=== PATIENT | male | born 1955 | race Caucasian/White ===

== ENCOUNTER 2018-03-25 07:00 | Inpatient (IN) ==
[2018-03-25] MEDS ORDERED: 0.9 % Sodium Chloride 1,000 ML IVC ONE (07:19)
[2018-03-25] MEDS ORDERED: Acetaminophen IV 1,000 MG/100 ML INFUS..BTL IVPB ONE (07:21)
[2018-03-25] MEDS ORDERED: Ipratropium/Albuterol Neb 3 ML IH ONE (07:21)
[2018-03-25] MEDS ORDERED: Cefepime HCl 2,000 MG in Water for inj. (sterile) 20 ML 20 ML IVP ONE (07:22)
[2018-03-25 07:52] LABS: Basophils % 0.4 %; Eosinophils # 0.2 K/mcL (0.0-0.6); Eosinophils % 2.2 %; Hematocrit 43.2 % (37.5-50.1); Immature Granulocytes % 0.4 % (0-4); Lymphocytes # 0.7 K/mcL (0.6-4.6); Lymphocytes % 7.9 %; Mean Corpuscular HGB Conc 34.7 g/dL (31.6-35.5); Mean Corpuscular Hemoglobin 32.5 pg (28.0-33.3); Mean Corpuscular Volume 93.7 fL (83.0-100.0); Mean Platelet Volume 9.2 fL (9.4-12.4); Monocytes # 0.8 K/mcL (0.0-1.3); Monocytes % 8.9 %; Neutrophils # 7.4 K/mcL (1.6-8.9); Platelet Count 215 K/mcL (140-400); Red Blood Count 4.61 M/mcL (4.19-5.50); Red Cell Distribution Width 12.6 % (11.5-14.5); Segmented Neutrophils % 80.2 %
[2018-03-25 08:17] LABS: BUN/Creatinine Ratio 12 (6-26); Blood Urea Nitrogen 12 mg/dL (8-23); Calcium 9.3 mg/dL (8.6-10.3); Carbon Dioxide 27 mEq/L (23-29); Chloride 102 mEq/L (98-107); Glucose 95 mg/dL (70-105); Osmolality,Calculated 282 (280-300); Potassium 3.7 mEq/L (3.5-5.1); Sodium 136 mEq/L (136-145); Troponin I < 0.03 ng/mL (< 0.04); eGFR For Non-African Americans > 60 (> 60)
--- NOTE | 2018-03-25 08:54 | Emergency Department Note ---
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 He does have a history of immunosuppression due to biological age and utilization as well as methotrexate for underlying psoriatic arthritis. He has had productive sputum, dyspnea for several days and has felt under the weather. 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 He has been admitted in the past for pneumonia. He has no chest pain was noted be mildly hypoxic at triage. General: No acute distress HEENT: Pupils equal and reactive to light, extraoccular muscle movement is normal, TMS are clear bilaterally. Heart: RRR, No murmor rub or gallop Lungs: Rhonchi bilaterally ABD: SNT, no focal areas or tenderness, no guarding or rebound tenderness. Extremities: No cyanosis, clubbing or edema Neuro: CN 2-12 in tact, no focal deficit. strength 5/5. 12 point review of systems was completed and pertinent positives are discussed in my history of present illness Medical decision making Findings consistent with early pneumonia. Given hypoxia, tachycardia, immunosuppressed state we will proceed with admission. Vancomycin as well as cefepime were initiated. MRSA scan was sent as to de-escalate antibiotic therapy as soon as possible. I did send urinary antigens. Additionally respiratory viral panel was obtained as again to further de-escalate antibiotics should this be positive. The patient be admitted for further management and treatment. IV fluids, expectorant, antibiotics, bronchodilator was administered Pain Scale: 3 - Related Data Allergies Allergy/AdvReac Type Severity Reaction Status Date / Time azithromycin [From Zithromax] Allergy Hives Verified 03/25/18 09:13 levofloxacin [From Levaquin] Allergy Difficulty Verified 03/25/18 09:13 Breathing All systems ED: reviewed and negative except as stated. Past Medical History - Past Medical History Medical history: Reports: arthritis, asthma, COPD, GERD, hypertension Psychiatric history: Reports: no psych history - Social History Smoking Status: Former smoker Smokeless Tobacco Status: No Alcohol use: Reports: occasionally Drug use: Reports: none Physical Exam - General General appearance: alert, in no apparent distress Course Vital Signs Temperature 101.6 F H 03/25/18 07:03 Pulse Rate 103 03/25/18 07:03 Respiratory Rate 18 03/25/18 07:03 Blood Pressure 137/83 03/25/18 07:03 O2 Sat by Pulse Oximetry 89 03/25/18 07:03 Temperature 101.6 F H 03/25/18 07:03 Pulse Rate 103 03/25/18 07:03 Respiratory Rate 23 03/25/18 09:09 Blood Pressure 125/70 03/25/18 09:09 O2 Sat by Pulse Oximetry 93 03/25/18 08:14 Oxygen Delivery Oxygen Delivery Nasal Cannula Medical Decision Making - MDM Narrative Medical decision making narrative: EKG shows sinus rhythm at a rate of 95 bpm, normal axis, normal intervals, nonspecific ST segments - Lab Data Result diagrams: 03/25/18 07:32 03/25/18 07:32 Lab Results 03/25/18 03/25/18 03/25/18 Range/Units 07:32 07:32 07:32 WBC 9.2 (4.3-11.1) K/mcL RBC 4.61 (4.19-5.50) M/mcL Hgb 15.0 (12.9-16.9) g/dL Hct 43.2 (37.5-50.1) % MCV 93.7 (83.0-100.0) fL MCH 32.5 (28.0-33.3) pg MCHC 34.7 (31.6-35.5) g/dL RDW 12.6 (11.5-14.5) % Plt Count 215 (140-400) K/mcL MPV 9.2 L (9.4-12.4) fL Immature Gran % 0.4 (0-4) % Seg Neutrophils % 80.2 % Lymphocytes % 7.9 % Monocytes % 8.9 % Eosinophils % 2.2 % Basophils % 0.4 % Neutrophils # 7.4 (1.6-8.9) K/mcL Lymphocytes # 0.7 (0.6-4.6) K/mcL Monocytes # 0.8 (0.0-1.3) K/mcL Eosinophils # 0.2 (0.0-0.6) K/mcL Basophils # 0.0 (0.0-0.2) K/mcL Sodium 136 (136-145) mEq/L Potassium 3.7 (3.5-5.1) mEq/L Chloride 102 (98-107) mEq/L Carbon Dioxide 27 (23-29) mEq/L BUN 12 (8-23) mg/dL Creatinine 1.00 (0.70-1.30) mg/dL Est GFR ( Amer) > 60 (> 60) Est GFR (Non-Af Amer) > 60 (> 60) BUN/Creatinine Ratio 12 (6-26) Glucose 95 (70-105) mg/dL Calculated Osmolality 282 (280-300) Lactic Acid 0.9 (0.5-2.2) mmol/L Calcium 9.3 (8.6-10.3) mg/dL Troponin I < 0.03 (< 0.04) ng/mL
[2018-03-25 09:40] LABS: Adenovirus Not Detected (Not Detect); Bordetella Pertussis Not Detected (Not Detect); Chlamydophila pneumoniae Not Detected (Not Detect); Coronavirus 229E Not Detected (Not Detect); Coronavirus HKU1 Not Detected (Not Detect); Coronavirus NL63 Not Detected (Not Detect); Coronavirus OC43 Not Detected (Not Detect); Human Metapneumovirus Not Detected (Not Detect); Human Rhinovirus/Enterovirus Not Detected (Not Detect); Influenza A Subtype 2009 H1 Not Detected (Not Detect); Influenza A Untypeable Not Detected (Not Detect); Influenza B Not Detected (Not Detect); Mycoplasma pneumoniae Not Detected (Not Detect); Parainfluenza Virus 1 Not Detected (Not Detect); Parainfluenza Virus 2 Not Detected (Not Detect); Parainfluenza Virus 3 Not Detected (Not Detect); Parainfluenza Virus 4 Not Detected (Not Detect); Respiratory Syncytial Virus Not Detected (Not Detect)
--- NOTE | 2018-03-25 10:03 | Internal Med History&Physical ---
Date of Encounter: 03/25/18 Time of Encounter: 10:03 Internal Medicine - H&P: HPI Chief complaint: cough and shortness of breath History of present illness: Mr. Ocampo is a 63 year old male with past medical history of hypertension, psoriatic arthritis, COPD with asthmatic component who came in with complaint of cough and shortness of breath for past 3-4 days. He had a fever this morning with chills. He has been on enbrel and methotraxate since december. Before that he has been on Jacklyn. 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 He has productive cough with greenish sputum and shortness of breath with minimal exertion for past 3 days. He did have treatment with augmentin about 1 month ago for sore throat. Denies any travel history. He also has history of COPD/asthma with last exacerbation about 1 year ago around this time. He continues to smoke. Did have few episodes of diarrhea for about 5-6 day which resolved yesterday with formed stools. His son recently came back from [place] and also had diarrhea as well as his had few episodes. In ER he was noted to have fever of 101.6, was tachycardic and short of breath. CXR showed bilateral infiltrates. He received 1 dose of vancomycina and cefepime as well as 1 L of NS. Past Med Surg Social Fam HX - Past Medical History Medical history: arthritis, asthma, COPD, GERD, hypertension Psychiatric history: no psych history - Past Surgical History Surgical History: no surgical history Additional surgical history: miniscus right knee, hernia repair - Social History Smoking Status: Current every day smoker Smokeless Tobacco Status: No Alcohol use: occasionally Drug use: none - Family History Mother Family Member Ethnicity: Non- Living Status: Hx Family Cardiac Disorders: Yes (HTN, A-FIB) Hx Family Respiratory Disorders: No Hx Family Cancer: Yes (melanoma) Hx Family GI Disorders: No Hx Family Endocrine Disorder: No Hx Family Neuromuscular Disorders: No Hx Family Neurologic Disorders: Yes (DEMENTIA) Hx Family HEENT Disorders: No Hx Family Autoimmune Disorders: No Internal Medicine - H&P: Meds Acetylcysteine [V-Dwhnpp-z-Cysteine] 600 mg PO BID 03/25/18 [History] Albuterol Sulfate [Ventolin Hfa] 2 puff IH Q4-6H PRN 03/25/18 [History] Dextroamphetamine/Amphetamine [Adderall Xr 20 mg Capsule] 20 mg PO DAILY [History] Etanercept [Enbrel] 50 mg SQ PALMER 03/25/18 [History] Fluticasone/Salmeterol [Advair Hfa 230-21 Mcg Inhaler] 2 puff IH BID 03/25/18 [ History] Folic Acid 1 mg PO DAILY 03/25/18 [History] Methotrexate [Otrexup] 15 mg PO PALMER 03/25/18 [History] Montelukast [Singulair] 10 mg PO DAILY 03/25/18 [History] Olmesartan/Hydrochlorothiazide [Olmesartan-Hctz 40-25 mg Tab] 1 tab PO DAILY [History] Tiotropium [place] [Spiriva Respimat] 1 puff IH DAILY 03/25/18 [History] Trazodone HCl 50 - 100 mg PO HS PRN 03/25/18 [History] raNITIdine HCl [Zantac] 150 mg PO BID 03/25/18 [History] 3 Allergy/AdvReac Type Severity Reaction Status Date / Time azithromycin [From Zithromax] Allergy Hives Verified 03/25/18 09:13 levofloxacin [From Levaquin] Allergy Difficulty Verified 03/25/18 09:13 Breathing All Systems PM: A 10-system review of systems was performed and is negative for pertinent findings except as documented above in the HPI. - Constitutional Vitals: Temp Pulse Resp BP Pulse Ox 101.6 F H 103 23 125/70 93 03/25/18 07:03 03/25/18 07:03 03/25/18 09:09 03/25/18 09:09 03/25/18 08:14 General appearance: Present: mild distress, A&O X 3 Exam: Gen: In no acute distress. AOx3. HEENT: PEARLA, no thyromegaly, trachea midline. No JVD, no cervical lymphadenopathy RS: Air entry equal bilaterally, No adventitious lung sounds CVS: S1,S2 normal, RRR, No MRG, No chest tenderness Abdomen: Soft, non tender, non distended, no organomegaly Ext: No pedal edema, Normal pulses bilaterally Neuro: No focal deficits, Cranial nerves grossly unremarkable, No focal motor or sensory deficits Skin: no rash or ulcers noted. Musculoskeletal: No focal weakness Internal Med - H&P Results - Labs CBC & Chem 7: 03/25/18 07:32 03/25/18 12:59 - Assessment and plan (1) Sepsis Current Visit: Yes Status: Acute Assessment and plan: Sepsis likely secondary to pneumonia - CXR with bilateral infiltrates with tachycardia, fever and tachypnea. Has cough with sputum production - Admit inpatient. - Causative organism unclear. f/u Blood culture, sputum culture and urine culture. f/u legionella and streptococcal antigen. Negative - c/w empiric vancomycin and cefepime for HCAP with immunosuppression. - ID consulted. Qualifiers: Sepsis type: sepsis due to unspecified organism Qualified Code(s): A41.9 - Sepsis, unspecified organism (2) HTN (hypertension) Current Visit: Yes Status: Acute Assessment and plan: - BP stable. - Will continue home hyzaar. Will monitor closely. Will stop if SBP below 100. Qualifiers: Qualified Code(s): I10 - Essential (primary) hypertension (3) History of COPD Current Visit: Yes Status: Acute Assessment and plan: - Continue home spiriva and symbicort - prn albuterol. (4) Pneumonia Current Visit: Yes Status: Acute Qualifiers: Pneumonia type: due to unspecified organism Laterality: unspecified laterality Lung location: unspecified part of lung Qualified Code(s): J18.9 - Pneumonia, unspecified organism (5) Psoriatic arthritis Current Visit: No Status: Chronic Assessment and plan: Will continue home medications. (6) DVT prophylaxis Current Visit: Yes Status: Acute Assessment and plan: Lovenox sc - Time Spent With Patient Total time spent is greater than 50% in coordination of care (as documented) at patient's floor/unit and/or counseling patient:
[2018-03-25] MEDS: 0.9 % Sodium Chloride 1,000 ML IVC SCH ×2 (11:33→23:36)
--- NOTE | 2018-03-25 13:01 | Electrocardiograph Report ---
[facility] Test Date: 2018-03-25 Pat Name: Aj Ocampo Department: EXAM4 Room: 2A39 Gender: M Prep Cook: : 1955 Requested By: Paulino Hammond Order Number: [id number] Reading MD: Jose C Dangelo Measurements Intervals Finger Rate: 95 P: 24 WY: 129 QRS: 42 QRSD: 91 T: 35 QT: 356 QTc: 448 Interpretive Statements Sinus rhythm Electronically Signed On 03-25-2018 12:59:57 EDT by Jose C Dangelo
--- NOTE | 2018-03-25 13:07 | Infectious Disease Consult ---
Date of Encounter: 03/25/18 Time of Encounter: 13:05 Assessment and Plan (1) Sepsis Status: Suspected Assessment and plan: Had 3 SIRS criteria on admission including tachycardia, fever and tachypnea Secondary to pneumonia Qualifiers: Sepsis type: methicillin susceptible Staphylococcus aureus Qualified Code(s ): A41.01 - Sepsis due to Methicillin susceptible Staphylococcus aureus (2) Bilateral pneumonia Status: Acute Assessment and plan: Causative organism not clear Respiratory infectious panel has been negative Check urine legionella and pneumococcal antigen Await blood cultures finalize Agree with Duration of treatment depends on clinical picture Qualifiers: Pneumonia type: due to unspecified organism Lung location: lower lobe of lung Qualified Code(s): J18.1 - Lobar pneumonia, unspecified organism (3) Psoriatic arthritis Status: Chronic (4) Immunocompromised Status: Acute (5) Allergy to multiple antibiotics Status: Acute Assessment and plan: Patient allergic to levofloxacin and azithromycin. With levofloxacin he had an anaphylactic reaction With azithromycin he had the rash Infectious Disease HPI - Data of Consult Patient: new to practice Consult date: 03/25/18 Requesting Physician: Debby Bartlett MD Primary Care Provider: PCP NONE - Consult Narrative Reason for consult: HCAP History of present illness: Mr. Ocampo is a 63 year old male Patient is 63-year-old gentleman who presented to [place] with cough and shortness of breath. We are consulted to evaluate the patient for HCAP in immunosuppressed patient. 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 Patient was previously on Humira but that did not control his psoriasis. While on Enbrel and Humira patient's been having yearly QuantiFERON and they all come back negative. Patient tells me that since prior to admission he started having some cough. Cough initially was dry and then became productive with thick yellow and green sputum. Following that patient was having chills and was having dyspnea on exertion and some pleuritic chest pain. Patient denied any URI symptoms no meningeal signs. Since admission patient has been febrile with MAXIMUM TEMPERATURE of 101.6 Fahrenheit, he has been tachycardic with a heart rate of 103 and had an episode of tachypnea. Presenting labs reveal a WBC of 9.2 with 80% neutrophils no bands. A respiratory infectious panel was obtained and it did not detect any virus. Chemistry was not impressive with the EMS 12 creatinine of 1 lactic acid of 0.9. Blood cultures are obtained and are pending. A chest x-ray revealed bibasilar airspace opacities which may represent developing infiltrate or atelectasis. CC: Debby Bartlett MD Past Med Surg Social Fam HX - Past Medical History Medical history: arthritis, asthma, COPD, GERD, hypertension Psychiatric history: no psych history - Past Surgical History Additional surgical history: miniscus right knee, hernia repair - Social History Smoking Status: Former smoker Smokeless Tobacco Status: No Alcohol use: occasionally Drug use: none - Family History Mother Family Member Ethnicity: Non- Living Status: Hx Family Cardiac Disorders: Yes (HTN, A-FIB) Hx Family Respiratory Disorders: No Hx Family Cancer: Yes (melanoma) Hx Family GI Disorders: No Hx Family Endocrine Disorder: No Hx Family Neuromuscular Disorders: No Hx Family Neurologic Disorders: Yes (DEMENTIA) Hx Family HEENT Disorders: No Hx Family Autoimmune Disorders: No Infectious Disease-CN:Meds Acetylcysteine [D-Bzrqya-b-Cysteine] 600 mg PO BID 03/25/18 [History] Albuterol Sulfate [Ventolin Hfa] 2 puff IH Q4-6H PRN 03/25/18 [History] Dextroamphetamine/Amphetamine [Adderall Xr 20 mg Capsule] 20 mg PO DAILY [History] Etanercept [Enbrel] 50 mg SQ PALMER 03/25/18 [History] Fluticasone/Salmeterol [Advair Hfa 230-21 Mcg Inhaler] 2 puff IH BID 03/25/18 [ History] Folic Acid 1 mg PO DAILY 03/25/18 [History] Methotrexate [Otrexup] 15 mg PO PALMER 03/25/18 [History] Montelukast [Singulair] 10 mg PO DAILY 03/25/18 [History] Olmesartan/Hydrochlorothiazide [Olmesartan-Hctz 40-25 mg Tab] 1 tab PO DAILY [History] Tiotropium [place] [Spiriva Respimat] 1 puff IH DAILY 03/25/18 [History] Trazodone HCl 50 - 100 mg PO HS PRN 03/25/18 [History] raNITIdine HCl [Zantac] 150 mg PO BID 03/25/18 [History] 3 Allergy/AdvReac Type Severity Reaction Status Date / Time azithromycin [From Zithromax] Allergy Hives Verified 03/25/18 09:13 levofloxacin [From Levaquin] Allergy Difficulty Verified 03/25/18 09:13 Breathing Exam - Constitutional Vitals: Temp Pulse Resp BP Pulse Ox 99.4 F 88 18 100/60 94 03/25/18 10:48 03/25/18 10:48 03/25/18 10:48 03/25/18 10:48 03/25/18 10:48 Infectious Disease CN: Results - Labs CBC & Chem 7: 03/26/18 05:41 03/26/18 05:41 Consult Discharge Plan - Plan Referrals: NONE,PCP [Primary Care Provider] -
[2018-03-25 13:36] LABS: Alanine Aminotransferase 25 Units/L (7-52); Albumin 3.9 g/dL (3.5-5.7); Albumin/Globulin Ratio 1.7 (1.1-2.2); Alkaline Phosphatase 60 Units/L (34-104); Aspartate Amino Transferase 24 Units/L (13-39); BUN/Creatinine Ratio 11 (6-26); Bilirubin,Total 0.7 mg/dL (0.3-1.0); Blood Urea Nitrogen 14 mg/dL (8-23); Calcium 9.2 mg/dL (8.6-10.3); Carbon Dioxide 27 mEq/L (23-29); Chloride 104 mEq/L (98-107); Globulin 2.3 g/dL (2.4-3.5); Glucose 122 mg/dL (70-105); Osmolality,Calculated 288 (280-300); Sodium 138 mEq/L (136-145); Total Protein 6.2 g/dL (6.4-8.9); eGFR For Non-African Americans 56 (> 60)
[2018-03-25] MEDS: Cefepime HCl 2,000 MG in Water for inj. (sterile) 20 ML 20 ML IVP SCH ×2 (16:56→23:35)
[2018-03-25] MEDS: Budesonide/Formoterol 160/4.5 1 PUFF INH IH SCH (20:37)
[2018-03-25] MEDS: Famotidine 20 MG TABLET PO SCH (20:41)
[2018-03-25] MEDS: *HR* Acetylcysteine 20% 600 MG/3 ML ORAL SYRINGE PO SCH (20:41)
[2018-03-25] MEDS: Acetaminophen 325 MG TABLET PO PRN (21:41)
[2018-03-26] MEDS: *HR* Enoxaparin 40 MG/0.4 ML SYRINGE SQ SCH (05:32)
[2018-03-26 06:35] LABS: Basophils # 0.1 K/mcL (0.0-0.2); Basophils % 0.5 %; Eosinophils # 0.3 K/mcL (0.0-0.6); Eosinophils % 2.4 %; Hematocrit 36.2 % (37.5-50.1); Immature Granulocytes % 0.7 % (0-4); Lymphocytes # 1.3 K/mcL (0.6-4.6); Lymphocytes % 12.3 %; Mean Corpuscular HGB Conc 35.4 g/dL (31.6-35.5); Mean Corpuscular Hemoglobin 32.7 pg (28.0-33.3); Mean Corpuscular Volume 92.3 fL (83.0-100.0); Mean Platelet Volume 9.3 fL (9.4-12.4); Monocytes # 1.2 K/mcL (0.0-1.3); Monocytes % 11.5 %; Neutrophils # 7.8 K/mcL (1.6-8.9); Platelet Count 175 K/mcL (140-400); Red Blood Count 3.92 M/mcL (4.19-5.50); Red Cell Distribution Width 12.9 % (11.5-14.5); Segmented Neutrophils % 72.6 %
[2018-03-26 06:41] LABS: Alanine Aminotransferase 19 Units/L (7-52); Albumin 3.5 g/dL (3.5-5.7); Albumin/Globulin Ratio 1.7 (1.1-2.2); Alkaline Phosphatase 53 Units/L (34-104); Aspartate Amino Transferase 16 Units/L (13-39); BUN/Creatinine Ratio 13 (6-26); Bilirubin,Total 0.8 mg/dL (0.3-1.0); Blood Urea Nitrogen 13 mg/dL (8-23); Calcium 8.6 mg/dL (8.6-10.3); Carbon Dioxide 24 mEq/L (23-29); Chloride 108 mEq/L (98-107); Globulin 2.1 g/dL (2.4-3.5); Glucose 100 mg/dL (70-105); Osmolality,Calculated 286 (280-300); Potassium 3.6 mEq/L (3.5-5.1); Sodium 138 mEq/L (136-145); Total Protein 5.6 g/dL (6.4-8.9); eGFR For Non-African Americans > 60 (> 60)
[2018-03-26 06:42] LABS: Hemoglobin 12.8 g/dL (12.9-16.9)
[2018-03-26] MEDS: Budesonide/Formoterol 160/4.5 1 PUFF INH IH SCH ×2 (07:35→19:37)
[2018-03-26] MEDS: Famotidine 20 MG TABLET PO SCH ×2 (08:04→20:39)
[2018-03-26] MEDS: *HR* Acetylcysteine 20% 600 MG/3 ML ORAL SYRINGE PO SCH ×2 (08:04→20:39)
[2018-03-26] MEDS: Cefepime HCl 2,000 MG in Water for inj. (sterile) 20 ML 20 ML IVP SCH ×2 (08:04→16:29)
[2018-03-26] MEDS: Folic Acid 1 MG TABLET PO SCH (08:05)
[2018-03-26] MEDS: DEXTROAMPHETAMINE PO SCH (08:05)
[2018-03-26] MEDS: AMPHETAMINE PO SCH (08:05)
[2018-03-26] MEDS: Losartan/HCTZ 50-12.5 TABLET PO SCH (08:05)
[2018-03-26] MEDS ORDERED: Budesonide/Formoterol 160/4.5 1 PUFF INH IH SCH (09:00)
[2018-03-26] MEDS ORDERED: NON-FORMULARY MEDICATION 1 EACH EACH (Tiotropium Bromide [Spiriva Respimat] 1 PUFF) IH SCH (09:00)
[2018-03-26] MEDS ORDERED: Aminoglycoside Consult 1 EACH MC ONE (09:46)
[2018-03-26] MEDS: Tiotropium 18 MCG inhalation IH SCH ×2 (11:02→12:41)
[2018-03-26] MEDS: Doxycycline 100 MG CAPSULE PO SCH ×2 (12:23→20:39)
--- NOTE | 2018-03-26 12:30 | Internal Med Progress Note ---
Hospitalist Progress Note - Encounter Date of Encounter: 03/26/18 Time of Encounter: 12:27 - Subjective Interval History: Patient is awake and alert. He feels much better today. No new episodes of fever. Does have cough with sputum. No chest pain or palpitations. - Exam Vitals: Temp Pulse Resp BP Pulse Ox 98.9 F 72 20 129/78 95 03/26/18 11:12 03/26/18 11:12 03/26/18 11:12 03/26/18 11:12 03/26/18 11:12 Exam: General: Patient is alert, oriented x 3 no acute distress, Respiratory: Good respiratory effort. Normal breath sounds. No wheezing or crackles. Cardiovascular: Regular rate and rhythm. s1 and s2 normal No clicks, rubs, gallops, or murmurs. No pedal edema Abdomen: Abdomen is soft, nontender. Bowel sounds are present Musculoskeletal: Spontaneously moving all extremities Skin: warm, dry, intact. Neuro: Alert oriented x 3 normal cranial nerves, no focal deficits - Assessment and Plan (1) Pneumonia Current Visit: Yes Status: Suspected Assessment and Plan: Clinically, patient feels much better. Discussed with infectious disease. MRSA screen was negative. However sputum culture growing gram-positive cocci and rods. For now continue Rocephin. Earlier today, stopped vancomycin and added doxycycline instead. We will follow infectious disease recommendations on stable evaluate the patient later today. Moderate risk for complications. (2) Psoriatic arthritis Current Visit: Yes Status: Chronic Assessment and Plan: Stable. Hold next dose of methotrexate. (3) Sepsis Current Visit: Yes Status: Suspected Assessment and Plan: From pneumonia. On IV antibiotics. Clinically patient is feeling better. (4) HTN (hypertension) Current Visit: Yes Status: Chronic Assessment and Plan: blood pressure is well controlled. Continue Hyzaar (5) History of COPD Current Visit: Yes Status: Acute Assessment and Plan: On bronchodilators and Symbicort. (6) DVT prophylaxis Current Visit: Yes Status: Acute Assessment and Plan: Lovenox. - Time Spent with Patient Total time spent is greater than 50% in coordination of care (as documented) at patient's floor/unit and/or counseling patient: Internal Medicine: Result - Labs CBC & Chem 7: 03/26/18 05:41 03/26/18 05:41 Labs: Short CBC 03/26/18 Range/Units 05:41 WBC 10.7 (4.3-11.1) K/mcL Hgb 12.8 L D (12.9-16.9) g/dL Hct 36.2 L (37.5-50.1) % Plt Count 175 (140-400) K/mcL Neutrophils # 7.8 (1.6-8.9) K/mcL BMP 03/26/18 05:41 Sodium 138 Potassium 3.6 Chloride 108 H Carbon Dioxide 24 BUN 13 Creatinine 0.98 Glucose 100 Calcium 8.6 Liver Function 03/26/18 Range/Units 05:41 Total Bilirubin 0.8 (0.3-1.0) mg/dL AST 16 (13-39) Units/L ALT 19 (7-52) Units/L Alkaline Phosphatase 53 (34-104) Units/L Albumin 3.5 (3.5-5.7) g/dL Consult Discharge Plan - Plan Referrals: NONE,PCP [Primary Care Provider] - (1) Pneumonia Qualifiers: Pneumonia type: due to methicillin-sensitive Staphylococcus aureus (MSSA) Laterality: bilateral Lung location: lower lobe of lung Qualified Code(s): J15.211 - Pneumonia due to Methicillin susceptible Staphylococcus aureus (3) Sepsis Qualifiers: Sepsis type: methicillin susceptible Staphylococcus aureus Qualified Code(s) : A41.01 - Sepsis due to Methicillin susceptible Staphylococcus aureus (4) HTN (hypertension) Qualifiers: Hypertension type: essential hypertension Qualified Code(s): I10 - Essential (primary) hypertension
[2018-03-26] MEDS: Albuterol 2.5 MG/3 ML NEBULIZER IH PRN ×2 (12:41→16:35)
--- NOTE | 2018-03-26 13:25 | Infectious Disease Progress No ---
Date of Encounter: 03/26/18 Time of Encounter: 09:10 - Assessment and Plan (1) Sepsis Current Visit: Yes Status: Suspected The patient had 3 sepsis criteria on admission including tachycardia, fever, tachypnea. Likely secondary to bilateral pneumonia. Improved. White blood cell count has normalized. He was mildly febrile overnight with a MAXIMUM TEMPERATURE of 100.6. Tachycardia has resolved. Blood cultures obtained 03/25/18 are pending 2 sets. Qualifiers: Sepsis type: methicillin susceptible Staphylococcus aureus Qualified Code(s ): A41.01 - Sepsis due to Methicillin susceptible Staphylococcus aureus (2) Bilateral pneumonia Current Visit: No Status: Acute Location: Bilateral. Causative organism: Unclear. Chest x-ray showed bibasilar airspace opacities which may represent developing infiltrates or atelectasis. Respiratory infectious panel was negative. Strep pneumococcal legionella urinary antigen tests are negative. Sputum culture is growing GNR. MRSA nasal screen was negative. Await blood cultures to finalize. Continue cefepime 2 g IV every 8 hours. Discontinue Vancomycin. Duration of treatment depends on the clinical picture. Monitor renal function and dose adjust antibiotics. Qualifiers: Pneumonia type: due to unspecified organism Lung location: lower lobe of lung Qualified Code(s): J18.1 - Lobar pneumonia, unspecified organism (3) Allergy to multiple antibiotics Current Visit: Yes Status: Acute The patient reports allergies to azithromycin and Levaquin. (4) History of COPD Current Visit: Yes Status: Chronic (5) HTN (hypertension) Current Visit: Yes Status: Chronic Qualifiers: Hypertension type: essential hypertension Qualified Code(s): I10 - Essential (primary) hypertension (6) Immunocompromised Current Visit: No Status: Acute Secondary to Enbrel taken for psoriatic arthritis. (7) Psoriatic arthritis Current Visit: Yes Status: Chronic - Subjective Interval history: Patient seen and examined. No acute events noted overnight. Patient states overall he feels better. Reports a persistent cough that is nonproductive. Denies fevers or chills or rigors. Denies chest pain. Denies nausea, vomiting , diarrhea, or constipation. Denies abdominal pain, urinary complaints, appetite changes. Denies any oral thrush or new skin lesions. Infect Dis PN-Objective Data - Labs CBC & Chem 7: 03/26/18 05:41 03/26/18 05:41 Labs: Laboratory Results - last 24 hr 03/26/18 03/26/18 05:41 05:41 WBC 10.7 RBC 3.92 L Hgb 12.8 L D Hct 36.2 L MCV 92.3 MCH 32.7 MCHC 35.4 RDW 12.9 Plt Count 175 MPV 9.3 L Immature Gran % 0.7 Seg Neutrophils % 72.6 Lymphocytes % 12.3 Monocytes % 11.5 Eosinophils % 2.4 Basophils % 0.5 Neutrophils # 7.8 Lymphocytes # 1.3 Monocytes # 1.2 Eosinophils # 0.3 Basophils # 0.1 Sodium 138 Potassium 3.6 Chloride 108 H Carbon Dioxide 24 BUN 13 Creatinine 0.98 Est GFR ( Amer) > 60 Est GFR (Non-Af Amer) > 60 BUN/Creatinine Ratio 13 Glucose 100 Calculated Osmolality 286 Calcium 8.6 Total Bilirubin 0.8 AST 16 ALT 19 Alkaline Phosphatase 53 Serum Total Protein 5.6 L Albumin 3.5 Globulin 2.1 L Albumin/Globulin Ratio 1.7 Exam - Constitutional Vitals: Temp Pulse Resp BP Pulse Ox 98.9 F 72 18 129/78 91 03/26/18 11:12 03/26/18 11:12 03/26/18 12:44 03/26/18 11:12 03/26/18 12:44 General appearance: average body habitus, cooperative, no acute distress - Head Head exam: Present: atraumatic, normal inspection, normocephalic - Eye Eye exam: Present: EOMI, normal appearance, PERRL Pupils: Present: normal accommodation - ENT ENT exam: Present: mucous membranes moist - Neck Neck exam: Present: normal inspection - Respiratory Respiratory exam: Present: CTAB. Absent: rales, respiratory distress, rhonchi, wheezes - Cardiovascular Cardiovascular exam: Present: RRR, +S1, +S2 - GI/Abdominal GI/Abdominal exam: Present: normal bowel sounds, soft. Absent: distended, tenderness - Extremities Exam Extremities exam: Present: normal inspection. Absent: joint swelling, pedal edema, tenderness - Neurological Exam Neurological exam: Present: alert, oriented X3, no focal deficits - Psychiatric Psychiatric exam: Present: normal affect, normal mood - Skin Skin exam: Present: dry, intact, normal color, warm Consult Discharge Plan - Plan Referrals: NONE,PCP [Primary Care Provider] - - Attending Attestation I examined this patient and my medical decision-making was reviewed with the Resident Physician. I agree with the documented findings, disposition and treatment plan as described except to the extent set forth below.
[2018-03-26] MEDS: Acetaminophen 325 MG TABLET PO PRN (16:29)
[2018-03-27] MEDS: Cefepime HCl 2,000 MG in Water for inj. (sterile) 20 ML 20 ML IVP SCH ×2 (00:49→09:52)
[2018-03-27] MEDS: *HR* Enoxaparin 40 MG/0.4 ML SYRINGE SQ SCH (05:43)
[2018-03-27] MEDS: Famotidine 20 MG TABLET PO SCH (09:51)
[2018-03-27] MEDS: Losartan/HCTZ 50-12.5 TABLET PO SCH (09:51)
[2018-03-27] MEDS: Doxycycline 100 MG CAPSULE PO SCH (09:51)
[2018-03-27] MEDS: Folic Acid 1 MG TABLET PO SCH (09:51)
[2018-03-27] MEDS: *HR* Acetylcysteine 20% 600 MG/3 ML ORAL SYRINGE PO SCH (09:52)
[2018-03-27] MEDS: AMPHETAMINE PO SCH (09:52)
[2018-03-27] MEDS: DEXTROAMPHETAMINE PO SCH (09:52)
[2018-03-27] MEDS: Tiotropium 18 MCG inhalation IH SCH (11:19)
[2018-03-27] MEDS: Budesonide/Formoterol 160/4.5 1 PUFF INH IH SCH (11:20)
[2018-03-27] MEDS: Albuterol 2.5 MG/3 ML NEBULIZER IH PRN (11:21)
--- NOTE | 2018-03-27 11:43 | Discharge Summary ---
- NOTES TO OUTPATIENT PROVIDER Notes to Outpatient Provider: Patient with history of psoriatic arthritis on treatment with methotrexate and Enbrel who was hospitalized here with pneumonia. He was suspected of having healthcare associated pneumonia due to his chronic immunosuppression. He was treated with broad-spectrum antibiotics. MRSA screen was negative. As such vancomycin was stopped. Patient's sputum culture is growing Pseudomonas which is sensitive to cephalosporins. However patient is allergic to cephalosporins. As such he needs intravenous antibiotics. Patient will be discharged today on intravenous cefepime to complete a 14 day course. Date of Encounter: 03/27/18 Time of Encounter: 11:41 - Discharge Diagnosis (1) Pneumonia Priority: Primary Status: Acute Qualifiers: Pneumonia type: due to Pseudomonas Laterality: bilateral Lung location: lower lobe of lung Qualified Code(s): J15.1 - Pneumonia due to Pseudomonas (2) Psoriatic arthritis Priority: Secondary Status: Chronic (3) Sepsis Priority: Secondary Status: Acute Qualifiers: Sepsis type: Pseudomonas Qualified Code(s): A41.52 - Sepsis due to Pseudomonas (4) HTN (hypertension) Priority: Secondary Status: Chronic Qualifiers: Hypertension type: essential hypertension Qualified Code(s): I10 - Essential (primary) hypertension (5) History of COPD Priority: Secondary Status: Chronic (6) DVT prophylaxis Priority: Secondary Status: Acute Hospital course: Mr. Ocampo is a 63 year old male Patient with history of psoriatic arthritis on treatment with methotrexate and Enbrel who was hospitalized here with pneumonia. He was suspected of having healthcare associated pneumonia due to his chronic immunosuppression. He was treated with broad-spectrum antibiotics. MRSA screen was negative. As such vancomycin was stopped. Patient's sputum culture is growing Pseudomonas which is sensitive to cephalosporins. However patient is allergic to cephalosporins. As such he needs intravenous antibiotics. Patient will be discharged today on intravenous cefepime to complete a 14 day course. Discharge discussed with: patient, nurse, desktop support consultant - Time Spent with Patient Total time spent providing and/or coordinating discharge services: Greater than 30 minutes (40 min) - Discharge Medications Prescriptions: Cefepime HCl/Dextrose, Iso-Osm [Cefepime 2 gm Injection] 2 gm IV Q8H #35 froz.piggy Lactobacillus Acidophilus [Acidophilus Probiotic] 1 mg PO BID #30 tablet Home Medications: Acetylcysteine [P-Yxjlmc-v-Cysteine] 600 mg PO BID 03/25/18 [History] Albuterol Sulfate [Ventolin Hfa] 2 puff IH Q4-6H PRN 03/25/18 [History] Dextroamphetamine/Amphetamine [Adderall Xr 20 mg Capsule] 20 mg PO DAILY [History] Etanercept [Enbrel] 50 mg SQ PALMER 03/25/18 [History] Fluticasone/Salmeterol [Advair Hfa 230-21 Mcg Inhaler] 2 puff IH BID 03/25/18 [ History] Folic Acid 1 mg PO DAILY 03/25/18 [History] Methotrexate [Otrexup] 15 mg PO PALMER 03/25/18 [History] Montelukast [Singulair] 10 mg PO DAILY 03/25/18 [History] Olmesartan/Hydrochlorothiazide [Olmesartan-Hctz 40-25 mg Tab] 1 tab PO DAILY [History] Tiotropium [place] [Spiriva Respimat] 1 puff IH DAILY 03/25/18 [History] Trazodone HCl 50 - 100 mg PO HS PRN 03/25/18 [History] raNITIdine HCl [Zantac] 150 mg PO BID 03/25/18 [History] Cefepime HCl/Dextrose, Iso-Osm [Cefepime 2 gm Injection] 2 gm IV Q8H #35 froz.piggy 03/27/18 [Rx] Lactobacillus Acidophilus [Acidophilus Probiotic] 1 mg PO BID #30 tablet [Rx] Allergies/Adverse Reactions: 3 Allergy/AdvReac Type Severity Reaction Status Date / Time azithromycin [From Zithromax] Allergy Hives Verified 03/25/18 09:13 levofloxacin [From Levaquin] Allergy Difficulty Verified 03/25/18 09:13 Breathing Date of admission: 03/25/18 18:14 Primary care physician: PCP NONE Consults: 03/27/18 11:02 Consult to Invasive Line Access Team [CONS] Routine Reason for Consult: home atb Line Type: EPIV 03/27/18 11:33 Consult to Invasive Line Access Team [CONS] Routine Reason for Consult: IV ATB at home Line Type: EPIV - Constitutional Vitals: Temp Pulse Resp BP Pulse Ox 98.6 F 74 17 114/70 97 03/27/18 07:49 03/27/18 07:49 03/27/18 07:49 03/27/18 07:49 03/27/18 07:49 General appearance: Present: mild distress, A&O X 3, answers questions appropriately Exam: . - Respiratory Respiratory exam: Present: CTAB. Absent: accessory muscle use, rales, rhonchi, wheezes - Cardiovascular Cardiovascular exam: Present: RRR, +S1, +S2. Absent: diastolic murmur, gallop, rubs, systolic murmur - GI/Abdominal GI/Abdominal exam: Present: normal bowel sounds, soft, no peritoneal signs. Absent: distended, tenderness - Patient Status Disposition: Home Health Service Condition: Good Functional capacity at discharge: independent ambulation Overall status at discharge: patient is progressing back to baseline - Discharge Instructions Instructions: Chronic Obstructive Pulmonary Disease (DC), Pneumonia (DC) Follow Up With: NONE,PCP [Primary Care Provider] - (in 1 -2 weeks) Danika Ellington, STEAM CRANE OPERATOR [Advanced Practice Nurse] - (in 1-2 weeks for follow up ) Forms: ED Satisfaction Letter - Diet and Activity Activity: increase activity as tolerated Diet: low fat, low cholesterol, low salt diet
--- NOTE | 2018-03-27 11:51 | Physician Discharge Referral ---
Home Health/Hosp Referral Info Transfer to: Home Health Provider in Charge Post Discharge: PCP - Diagnosis (1) Pneumonia Priority: Primary Status: Acute (2) Psoriatic arthritis Priority: Secondary Status: Chronic (3) Sepsis Priority: Secondary Status: Acute (4) HTN (hypertension) Priority: Secondary Status: Chronic (5) History of COPD Priority: Secondary Status: Chronic (6) DVT prophylaxis Priority: Secondary Status: Acute - Respiratory Orders Smoking Cessation: Smoking cessation has been advised. For more information, call the [place] Tobacco Quit Line at 5-954-AYWR-NOW. - Diet/Nutrition Diet/Nutrition Orders: Cardiac - Activity Activity Orders: Up ad evelyn - Services Needed Following services are medically necessary services: Home Infusion Home Care Orders: Please check CBC, basic panel every week while patient is receiving IV cefepime. - Transfer Medications Prescriptions: Cefepime HCl/Dextrose, Iso-Osm [Cefepime 2 gm Injection] 2 gm IV Q8H #35 froz.piggy Lactobacillus Acidophilus [Acidophilus Probiotic] 1 mg PO BID #30 tablet Home Medications: Acetylcysteine [X-Trrnvq-p-Cysteine] 600 mg PO BID 03/25/18 [History] Albuterol Sulfate [Ventolin Hfa] 2 puff IH Q4-6H PRN 03/25/18 [History] Dextroamphetamine/Amphetamine [Adderall Xr 20 mg Capsule] 20 mg PO DAILY [History] Etanercept [Enbrel] 50 mg SQ PALMER 03/25/18 [History] Fluticasone/Salmeterol [Advair Hfa 230-21 Mcg Inhaler] 2 puff IH BID 03/25/18 [ History] Folic Acid 1 mg PO DAILY 03/25/18 [History] Methotrexate [Otrexup] 15 mg PO PALMER 03/25/18 [History] Montelukast [Singulair] 10 mg PO DAILY 03/25/18 [History] Olmesartan/Hydrochlorothiazide [Olmesartan-Hctz 40-25 mg Tab] 1 tab PO DAILY [History] Tiotropium [place] [Spiriva Respimat] 1 puff IH DAILY 03/25/18 [History] Trazodone HCl 50 - 100 mg PO HS PRN 03/25/18 [History] raNITIdine HCl [Zantac] 150 mg PO BID 03/25/18 [History] Cefepime HCl/Dextrose, Iso-Osm [Cefepime 2 gm Injection] 2 gm IV Q8H #35 froz.piggy 03/27/18 [Rx] Lactobacillus Acidophilus [Acidophilus Probiotic] 1 mg PO BID #30 tablet [Rx] Allergies/Adverse Reactions: 3 Allergy/AdvReac Type Severity Reaction Status Date / Time azithromycin [From Zithromax] Allergy Hives Verified 03/25/18 09:13 levofloxacin [From Levaquin] Allergy Difficulty Verified 03/25/18 09:13 Breathing Certification: Further, I certify that my clinical findings support that this patient is homebound (i.e. absences from home require considerable and taxing effort and are for medical reasons or mosque services or infrequently or short duration when for other reasons) because: Homebound Reason: Patient requires assistance of a person or device to safely leave home (Patient needs home IV antibiotics to treat Pseudomonas pneumonia infection.) Attestation: My signature below is to certify that this patient is under my care and that I, or nurse practitioner, or a physician's certified ophthalmic assistant working with me, has a face-to -face encounter with this patient.
[2018-03-27 12:07] VITALS: BP 134/73
[2018-03-27] MEDS ORDERED: Isovue-370 500 ML INFUS..BTL IV ONE (12:23)
--- NOTE | 2018-03-27 12:52 | Infectious Disease Progress No ---
Date of Encounter: 03/27/18 Time of Encounter: 10:55 - Assessment and Plan (1) Sepsis Status: Acute The patient had 3 sepsis criteria on admission including tachycardia, fever, tachypnea. Likely secondary to bilateral pneumonia. Improved. White blood cell count has normalized. Afebrile. Tachycardia has resolved. Blood cultures obtained 03/25/18 are NGTD 2 sets. Qualifiers: Sepsis type: Pseudomonas Qualified Code(s): A41.52 - Sepsis due to Pseudomonas (2) Bilateral pneumonia Status: Acute Location: Bilateral. Causative organism: Pseudomonas aeruginosa. Chest x-ray showed bibasilar airspace opacities which may represent developing infiltrates or atelectasis. Respiratory infectious panel was negative. Strep pneumococcal legionella urinary antigen tests are negative. Sputum culture is growing GNR. MRSA nasal screen was negative. Await blood cultures to finalize. Get CT chest to evaluate hemoptysis. Continue cefepime 2 g IV, but can switch to Q12H. (day 3) Duration of treatment depends on the clinical picture, but recommend a total of 14 days of treatment. Treat through 04/07/18. Monitor renal function and dose adjust antibiotics. Consult VAT for EPIV placement. Will need weekly CBC, BUN/Cr. Will need weekly Powerglide care per protocol. financial services counselor to assist with discharge planning. Qualifiers: Pneumonia type: due to unspecified organism Lung location: lower lobe of lung Qualified Code(s): J18.1 - Lobar pneumonia, unspecified organism (3) Hemoptysis Status: Acute Likely secondary to PNA, but concern for additional etiologies. Get CT chest with IV contrast to evaluate. May need to consult pulmonology if hemoptysis persists or based on CT chest findings. (4) Allergy to multiple antibiotics Status: Acute The patient reports allergies to azithromycin and Levaquin, so we will have to use IV antibiotics to complete his course of treatment. (5) History of COPD Status: Chronic (6) HTN (hypertension) Status: Chronic Qualifiers: Hypertension type: essential hypertension Qualified Code(s): I10 - Essential (primary) hypertension (7) Immunocompromised Status: Acute Secondary to Enbrel taken for psoriatic arthritis. (8) Psoriatic arthritis Status: Chronic - Subjective Interval history: Patient seen and examined. No acute events noted overnight. Patient states overall he feels better. Reports a persistent cough that is productive of brown sputum. He also reports one episode of hemoptysis this morning. Denies fevers or chills or rigors. Denies chest pain. Denies nausea, vomiting, diarrhea, or constipation. Denies abdominal pain, urinary complaints, appetite changes. Denies any oral thrush or new skin lesions. Infect Dis PN-Objective Data - Labs CBC & Chem 7: 03/26/18 05:41 03/26/18 05:41 Exam - Constitutional Vitals: Temp Pulse Resp BP Pulse Ox 98.0 F 82 18 134/73 92 03/27/18 12:06 03/27/18 12:06 03/27/18 12:06 03/27/18 12:06 03/27/18 12:06 General appearance: average body habitus, cooperative, no acute distress - Head Head exam: Present: atraumatic, normal inspection, normocephalic - Eye Eye exam: Present: EOMI, normal appearance, PERRL Pupils: Present: normal accommodation - ENT ENT exam: Present: mucous membranes moist - Neck Neck exam: Present: normal inspection - Respiratory Respiratory exam: Present: wheezes (faint wheezes noted throughout) - Cardiovascular Cardiovascular exam: Present: RRR, +S1, +S2 - GI/Abdominal GI/Abdominal exam: Present: normal bowel sounds, soft. Absent: distended, tenderness - Extremities Exam Extremities exam: Present: normal inspection. Absent: joint swelling, pedal edema, tenderness - Neurological Exam Neurological exam: Present: alert, oriented X3, no focal deficits - Psychiatric Psychiatric exam: Present: normal affect, normal mood - Skin Skin exam: Present: dry, intact, normal color, warm Consult Discharge Plan - Plan Instructions: Chronic Obstructive Pulmonary Disease (DC), Pneumonia (DC) Referrals: Danika Ellington, SILK SCREEN PAINTER [Advanced Practice Nurse] - (in 1-2 weeks for follow up ) NONE,PCP [Primary Care Provider] - (in 1 -2 weeks) Prescriptions: Cefepime HCl/Dextrose, Iso-Osm [Cefepime 2 gm Injection] 2 gm IV Q8H #35 [email or web address] Lactobacillus Acidophilus [Acidophilus Probiotic] 1 mg PO BID #30 tablet - Attending Attestation I examined this patient and my medical decision-making was reviewed with the Resident Physician. I agree with the documented findings, disposition and treatment plan as described except to the extent set forth below.
[2018-03-30] MEDS ORDERED: Etanercept [Enbrel] 50 MG SQ SCH (12:45)
[2018-03-30] MEDS ORDERED: *HR* Methotrexate 2.5 MG TABLET PO SCH (12:45)
== END 2018-03-27 13:49 | disposition home health service (06) | DRG 871 ==
LOC: EMEROOARM 07:00 → 2ANU 07:00 → SUATTDRO 18:14
PROVIDERS: ADMIT Family Medicine; ATTEND Internal Medicine

== ENCOUNTER 2018-04-18 17:09 | Inpatient (IN) ==
[2018-04-18] MEDS ORDERED: cefTRIAXone 2,000 MG in Water for inj. (sterile) 20 ML 20 ML IVP ONE (17:31)
[2018-04-18] MEDS: 0.9 % Sodium Chloride 1,000 ML IVC SCH ×2 (17:56→18:42)
--- NOTE | 2018-04-18 17:58 | Emergency Department Note ---
Disposition Clinical Impression: Immunocompromised Pneumonia Qualifiers: Pneumonia type: due to unspecified organism Laterality: unspecified laterality Lung location: unspecified part of lung Qualified Code(s): J18.9 - Pneumonia, unspecified organism Disposition: Admitted As Inpatient Condition: Fair Referrals: NONE,PCP [Non-Partnered Physician] - Forms: ED Satisfaction Letter Time of Disposition: 19:31 General Adult HPI - General Chief complaint: ED Fever Stated complaint: fever, headache Time Seen by Provider: 04/18/18 17:26 Source: patient, family Mode of arrival: ambulatory Limitations: no limitations Nursing Notes Reviewed: Yes Vital Signs Reviewed: Yes - History of Present Illness HPI Narrative: Patient is a 63 year old male that presents to the ED with fever, and headache. Per patient's report, He was recently treated for pseudomonas PNA 3 weeks ago. Patient is on immunomodulators for his psoriatic arthritis. Patient says starting two days ago he started to develop a productive cough with cream colored sputum and worsening dyspnea. His sypmtoms worsened yesterday and he was found to have a fever of 101.2. This morning he woke up with a gradually worsening left-sided frontal-temporal headache. His headache is sharp in character and he rates it a 4/10 at present. Today at work his oxygen saturation dropped down to the 85% and decided it was time to come to the ED to be evaluated. Patient has also noted neck pain exacerbated by movement. Patient also admits to chills, generalized weakness, fatigue, central chest pain with coughing, diffuse abdominal pain with coughing. I have re-performed and reviewed the history documented by the medical student, and I confirm its accuracy except as noted below Agree with her thing that has been done above. Patient presents here with similar symptoms last time he had pneumonia. He recently was treated for pneumonia due to pseudomonas 3 weeks ago. Patient is on immunomodulators for psoriatic arthritis. He started having a productive clot coughing cream- colored sputum the last couple days. Symptoms worsen yesterday did have fever of 101.2. Started having a headache since early worried and caused him to come in. Patient states that he has had fevers that have been controlled with Motrin. Patient otherwise has no complaints including no headaches, blurry vision, neck pain, chest pain, shortness of breath, chills, nausea, vomiting, abdominal pain, chest pain, pain in the arms or legs, change in bowel movements , pain with urination, generalized weakness. Pain Scale: 4 - Related Data Home Medications Medication Instructions Recorded Confirmed Acetylcysteine 600 mg PO BID 03/25/18 03/25/18 [A-Nmshli-p-Cysteine] Albuterol Sulfate [Ventolin Hfa] 2 puff IH Q4-6H PRN 03/25/18 03/25/18 Etanercept [Enbrel] 50 mg SQ PALMER 03/25/18 03/25/18 Folic Acid 1 mg PO DAILY 03/25/18 03/25/18 Methotrexate [Otrexup] 15 mg PO PALMER 03/25/18 03/25/18 Montelukast [Singulair] 10 mg PO DAILY 03/25/18 03/25/18 Olmesartan/Hydrochlorothiazide 1 tab PO DAILY 03/25/18 03/25/18 [Olmesartan-Hctz 40-25 mg Tab] Tiotropium [place] [Spiriva 1 puff IH DAILY 03/25/18 03/25/18 Respimat] Trazodone HCl 50 - 100 mg PO HS PRN 03/25/18 03/25/18 raNITIdine HCl [Zantac] 150 mg PO BID 03/25/18 03/25/18 Previous Rx's Medication Instructions Recorded Lactobacillus Acidophilus 1 mg PO BID #30 tablet 03/27/18 [Acidophilus Probiotic] Allergies Allergy/AdvReac Type Severity Reaction Status Date / Time azithromycin [From Zithromax] Allergy Hives Verified 03/25/18 09:13 levofloxacin [From Levaquin] Allergy Difficulty Verified 03/25/18 09:13 Breathing All systems ED: reviewed and negative except as stated. Review of Systems: As Per HPI Constitutional: Reports: fever, chills, weakness Eyes: Denies: eye pain, vision change ENT ED: Reports: congestion. Denies: throat pain Cardiovascular: Reports: chest pain. Denies: palpitations Respiratory: Reports: cough, dyspnea Gastrointestinal: Reports: abdominal pain. Denies: nausea, vomiting, diarrhea, constipation, hematemesis, melena, hematochezia Genitourinary: Denies: urgency, dysuria, frequency, hematuria Musculoskeletal: Reports: neck pain. Denies: back pain Neurological: Reports: headache. Denies: weakness, numbness, paresthesias Past Medical History - Past Medical History Attestation: Yes The following information was validated with the patient. Source: patient Medical history: Reports: arthritis, asthma, COPD, GERD, hypertension Surgical history: Reports: no surgical history Psychiatric history: Reports: no psych history - Social History Smoking Status: Former smoker Smokeless Tobacco Status: No Alcohol use: Reports: rarely Drug use: Reports: none Physical Exam - General Limitations: no limitations General appearance: alert, in no apparent distress - Head Head exam: atraumatic, normocephalic, normal inspection - ENT ENT exam: normal exam, mucous membranes moist - Neck Neck exam: Present: normal inspection, full ROM, trachea midline. Absent: meningismus - Chest Chest inspection: Present: normal inspection, symmetric chest wall rise. Absent : rash - Respiratory Respiratory exam: Present: other (fine rhonchi). Absent: respiratory distress, accessory muscle use - Cardiovascular Cardiovascular exam: Present: regular rate, normal rhythm, normal heart sounds. Absent: systolic murmur, diastolic murmur, rubs, gallop - Abdominal Exam Abdominal exam: Present: soft, Non-Tender, normal bowel sounds. Absent: distention, guarding, rigidity - Extremities Exam Extremities exam: Present: normal inspection, full ROM. Absent: pedal edema - Back Exam Back exam: Present: normal inspection, full ROM. Absent: rashes - Neurological Exam Neurological exam: Present: alert, oriented X3, other (sensation intact in the upper and lower extremities) - Expanded Neurological Exam Speech: Present: fluid speech Cerebellar function: finger to nose: Normal, heel to gutiérrez: Normal Motor strength - LUE: 5/5 Motor strength - RUE: 5/5 Motor strength - LLE: 5/5 Motor strength - RLE: 5/5 Coma Scale Eye Opening: Spontaneous Coma Scale Motor Response: Obeys Commands Coma Scale Verbal Response: Oriented Coma Scale Total: 15 - Psychiatric Psychiatric exam: Present: normal affect. Absent: normal mood - Skin Skin exam: Present: warm, dry, intact, normal color. Absent: rash, cyanosis Course Course Narrative: Will start patient under sepsis protocol as he does meet Sirs with a fever and tachycardic and most likely known infection of pneumonia. We a chest x-ray, CBC , BMP, lactate, EKG we will start him on broad-spectrum antibiotics including vancomycin and ceftriaxone. Most likely disposition will be admission at this time we will also get blood cultures. - Consultations Consultation #1: Spoke with the infectious disease doctor Dr. Craig who recommended we add on urine Legionella antigen as well as strep pneumococcal antigen. Also get a viral rest Tory panel. Also recommended only sticking to cefepime, vancomycin and adding doxycycline to his regimen. Also recommended pulmonology consult for possible bronchoscopy. Pulmonology consult was placed. They again recommended admission and they will follow. Time: 19:10 Vital Signs Temperature 100.3 F H 04/18/18 17:25 Pulse Rate 99 04/18/18 17:25 Respiratory Rate 20 04/18/18 17:25 Blood Pressure 132/79 04/18/18 17:25 O2 Sat by Pulse Oximetry 88 04/18/18 17:25 Temperature 100.3 F H 04/18/18 17:25 Pulse Rate 90 04/18/18 19:15 Respiratory Rate 20 04/18/18 19:15 Blood Pressure 143/70 04/18/18 19:15 O2 Sat by Pulse Oximetry 97 04/18/18 19:15 Oxygen Delivery Oxygen Delivery Nasal Cannula Medical Decision Making - [facility] Narrative Medical decision making narrative: 63 or male presented here with fever. After examining the patient did not have any meningeal signs. 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 He stated no altered mental status of this for this we decided make sure decision-making decided not to do lumbar puncture on the patient. We did start the septic protocol on him he was nonseptic shock though while he was here. We did get cultures which are still pending. Labs did not show any leukocytosis but he is immunosuppressed due to psoriatic arthritis. Did not have a lactic acidosis or any other lab abnormalities. Chest x-ray did show most likely pneumonia. But due to temperature tachycardia as well as most likely known source of pneumonia we treated patient has a Sirs alert. Patient did originally get ceftriaxone as well as vancomycin. After speaking with infectious disease they recommend to stop the ceftriaxone continue with the cefepime, vancomycin and add doxycycline. Also added a urine Legionella and strep pneumonia antigens as well as a viral respiratory panel. These are still pending. Patient also is recommended for possible bronchoscopy by pulmonology this was recommended by again infectious disease. I put that consult in. Did not speak with pulmonology though. Patient otherwise is doing well now he is not in any distress is stable at this time. I spoke with the hospitalist Dr. Del Cid who agreed to meet the patient to their service. Patient is admitted in stable condition. Chest X-Ray 04/18/18 17:32 IMPRESSION: Few streaky opacities at the left lung base may represent residual pneumonia or atelectasis. D/ / Nehemias Wong / Nehemias Wong Interpreting Provider: Nehemias Wong - Medical Records Medical records reviewed: Yes I reviewed the patient's medical records. - Lab Data Lab results reviewed: Yes I reviewed the patient's lab results. Result diagrams: 04/18/18 17:55 04/18/18 17:55 Lab Results 04/18/18 04/18/18 04/18/18 Range/Units 17:55 17:55 17:55 WBC 5.8 (4.3-11.1) K/mcL RBC 4.26 (4.19-5.50) M/mcL Hgb 13.7 (12.9-16.9) g/dL Hct 39.9 (37.5-50.1) % MCV 93.7 (83.0-100.0) fL MCH 32.2 (28.0-33.3) pg MCHC 34.3 (31.6-35.5) g/dL RDW 12.7 (11.5-14.5) % Plt Count 207 (140-400) K/mcL MPV 9.5 (9.4-12.4) fL Immature Gran % 1.0 (0-4) % Seg Neutrophils % 58.6 % Lymphocytes % 17.7 % Monocytes % 17.2 % Eosinophils % 4.1 % Basophils % 1.4 % Neutrophils # 3.4 (1.6-8.9) K/mcL Lymphocytes # 1.0 (0.6-4.6) K/mcL Monocytes # 1.0 (0.0-1.3) K/mcL Eosinophils # 0.2 (0.0-0.6) K/mcL Basophils # 0.1 (0.0-0.2) K/mcL PT 13.0 H (9.4-12.1) Seconds INR 1.2 APTT 28.3 (26.0-36.0) Seconds Sodium 135 L (136-145) mEq/L Potassium 3.6 (3.5-5.1) mEq/L Chloride 101 (98-107) mEq/L Carbon Dioxide 24 (23-29) mEq/L BUN 16 (8-23) mg/dL Creatinine 1.13 (0.70-1.30) mg/dL Est GFR ( Amer) > 60 (> 60) Est GFR (Non-Af Amer) > 60 (> 60) BUN/Creatinine Ratio 14 (6-26) Glucose 102 (70-105) mg/dL Calculated Osmolality 281 (280-300) Lactic Acid (0.5-2.2) mmol/L Calcium 9.8 (8.6-10.3) mg/dL Phosphorus 3.1 (2.7-4.5) mg/dL Magnesium 1.8 (1.6-2.6) mg/dL Total Bilirubin 0.7 (0.3-1.0) mg/dL Direct Bilirubin 0.1 (0.0-0.2) mg/dL Indirect Bilirubin 0.6 (0.0-1.2) mg/dL AST 26 (13-39) Units/L ALT 20 (7-52) Units/L Alkaline Phosphatase 62 (34-104) Units/L Troponin I < 0.03 (< 0.04) ng/mL B-Natriuretic Peptide (Less than 100) pg/mL Serum Total Protein 6.6 (6.4-8.9) g/dL Albumin 4.2 (3.5-5.7) g/dL Globulin 2.4 (2.4-3.5) g/dL Albumin/Globulin Ratio 1.8 (1.1-2.2) 04/18/18 04/18/18 Range/Units 17:55 17:55 WBC (4.3-11.1) K/mcL RBC (4.19-5.50) M/mcL Hgb (12.9-16.9) g/dL Hct (37.5-50.1) % MCV (83.0-100.0) fL MCH (28.0-33.3) pg MCHC (31.6-35.5) g/dL RDW (11.5-14.5) % Plt Count (140-400) K/mcL MPV (9.4-12.4) fL Immature Gran % (0-4) % Seg Neutrophils % % Lymphocytes % % Monocytes % % Eosinophils % % Basophils % % Neutrophils # (1.6-8.9) K/mcL Lymphocytes # (0.6-4.6) K/mcL Monocytes # (0.0-1.3) K/mcL Eosinophils # (0.0-0.6) K/mcL Basophils # (0.0-0.2) K/mcL PT (9.4-12.1) Seconds INR APTT (26.0-36.0) Seconds Sodium (136-145) mEq/L Potassium (3.5-5.1) mEq/L Chloride (98-107) mEq/L Carbon Dioxide (23-29) mEq/L BUN (8-23) mg/dL Creatinine (0.70-1.30) mg/dL Est GFR ( Amer) (> 60) Est GFR (Non-Af Amer) (> 60) BUN/Creatinine Ratio (6-26) Glucose (70-105) mg/dL Calculated Osmolality (280-300) Lactic Acid 0.8 (0.5-2.2) mmol/L Calcium (8.6-10.3) mg/dL Phosphorus (2.7-4.5) mg/dL Magnesium (1.6-2.6) mg/dL Total Bilirubin (0.3-1.0) mg/dL Direct Bilirubin (0.0-0.2) mg/dL Indirect Bilirubin (0.0-1.2) mg/dL AST (13-39) Units/L ALT (7-52) Units/L Alkaline Phosphatase (34-104) Units/L Troponin I (< 0.04) ng/mL B-Natriuretic Peptide 19 (Less than 100) pg/mL Serum Total Protein (6.4-8.9) g/dL Albumin (3.5-5.7) g/dL Globulin (2.4-3.5) g/dL Albumin/Globulin Ratio (1.1-2.2) - Radiology Data Radiology results reviewed: Yes I reviewed the patient's radiology results. - EKG Data EKG #1 EKG attestation: Yes I reviewed and interpreted this EKG. EKG results narrative: EKG done at 1741 review myself and the attending shows sinus rhythm at a rate of 87, MS 139, QRS 94, QTc 441. No acute ST changes no acute T-wave changes no other signs of ischemia. No signs of hypertrophy, heart strain, heart block. No WPW/Brugada/HOCM. This is no different compared with old EKG done 03/25/18 Attestation Statement - Attestation Attestation: I, Nicolas Tapia DO, examined this patient [id number] and my medical decision-making was reviewed with Dr. Lopez Monroy, Resident Physician. I agree with the documented findings, disposition and treatment plan as described except to the extent set forth below. Please see my progress notes for details.
[2018-04-18] MEDS ORDERED: Cefepime HCl 2,000 MG in 0.9 % Sodium Chloride Mini Bag 100 ML IVPB STA (18:15)
[2018-04-18 18:19] LABS: Basophils # 0.1 K/mcL (0.0-0.2); Basophils % 1.4 %; Eosinophils # 0.2 K/mcL (0.0-0.6); Eosinophils % 4.1 %; Hematocrit 39.9 % (37.5-50.1); Hemoglobin 13.7 g/dL (12.9-16.9); Lymphocytes % 17.7 %; Mean Corpuscular HGB Conc 34.3 g/dL (31.6-35.5); Mean Corpuscular Hemoglobin 32.2 pg (28.0-33.3); Mean Corpuscular Volume 93.7 fL (83.0-100.0); Mean Platelet Volume 9.5 fL (9.4-12.4); Monocytes % 17.2 %; Neutrophils # 3.4 K/mcL (1.6-8.9); Platelet Count 207 K/mcL (140-400); Red Blood Count 4.26 M/mcL (4.19-5.50); Red Cell Distribution Width 12.7 % (11.5-14.5); Segmented Neutrophils % 58.6 %
[2018-04-18 18:32] LABS: Troponin I < 0.03 ng/mL (< 0.04)
[2018-04-18 18:33] LABS: Alanine Aminotransferase 20 Units/L (7-52); Albumin 4.2 g/dL (3.5-5.7); Albumin/Globulin Ratio 1.8 (1.1-2.2); Alkaline Phosphatase 62 Units/L (34-104); Aspartate Amino Transferase 26 Units/L (13-39); BUN/Creatinine Ratio 14 (6-26); Bilirubin,Direct 0.1 mg/dL (0.0-0.2); Bilirubin,Indirect 0.6 mg/dL (0.0-1.2); Bilirubin,Total 0.7 mg/dL (0.3-1.0); Blood Urea Nitrogen 16 mg/dL (8-23); Calcium 9.8 mg/dL (8.6-10.3); Carbon Dioxide 24 mEq/L (23-29); Chloride 101 mEq/L (98-107); Globulin 2.4 g/dL (2.4-3.5); Glucose 102 mg/dL (70-105); Magnesium 1.8 mg/dL (1.6-2.6); Osmolality,Calculated 281 (280-300); Phosphorous 3.1 mg/dL (2.7-4.5); Potassium 3.6 mEq/L (3.5-5.1); Sodium 135 mEq/L (136-145); Total Protein 6.6 g/dL (6.4-8.9); eGFR For Non-African Americans > 60 (> 60)
[2018-04-18 18:34] LABS: INR 1.2
[2018-04-18 18:36] LABS: Activated Partial Thrombo Time 28.3 Seconds (26.0-36.0)
--- NOTE | 2018-04-18 18:40 | Emergency Department Note ---
Disposition Clinical Impression: Immunocompromised, Fever, Sepsis Pneumonia Qualifiers: Pneumonia type: due to Pseudomonas Laterality: bilateral Lung location: lower lobe of lung Qualified Code(s): J15.1 - Pneumonia due to Pseudomonas Disposition: Admitted As Inpatient Condition: Fair Referrals: NONE,PCP [Primary Care Provider] - Forms: ED Satisfaction Letter Time of Disposition: 19:40 General Adult HPI - General Chief complaint: ED Fever Stated complaint: fever, headache Time Seen by Provider: 04/18/18 17:26 Source: patient, family Limitations: no limitations - History of Present Illness Pain Scale: 4 - Related Data Home Medications Medication Instructions Recorded Confirmed Acetylcysteine 600 mg PO BID 03/25/18 03/25/18 [O-Xdgpkn-o-Cysteine] Albuterol Sulfate [Ventolin Hfa] 2 puff IH Q4-6H PRN 03/25/18 03/25/18 Etanercept [Enbrel] 50 mg SQ PALMER 03/25/18 03/25/18 Folic Acid 1 mg PO DAILY 03/25/18 03/25/18 Methotrexate [Otrexup] 15 mg PO PALMER 03/25/18 03/25/18 Montelukast [Singulair] 10 mg PO DAILY 03/25/18 03/25/18 Olmesartan/Hydrochlorothiazide 1 tab PO DAILY 03/25/18 03/25/18 [Olmesartan-Hctz 40-25 mg Tab] Tiotropium [place] [Spiriva 1 puff IH DAILY 03/25/18 03/25/18 Respimat] Trazodone HCl 50 - 100 mg PO HS PRN 03/25/18 03/25/18 raNITIdine HCl [Zantac] 150 mg PO BID 03/25/18 03/25/18 Previous Rx's Medication Instructions Recorded Lactobacillus Acidophilus 1 mg PO BID #30 tablet 03/27/18 [Acidophilus Probiotic] Allergies Allergy/AdvReac Type Severity Reaction Status Date / Time azithromycin [From Zithromax] Allergy Hives Verified 03/25/18 09:13 levofloxacin [From Levaquin] Allergy Difficulty Verified 03/25/18 09:13 Breathing Constitutional: Reports: fever, chills, weakness Eyes: Denies: eye pain, vision change ENT ED: Reports: congestion. Denies: throat pain Cardiovascular: Reports: chest pain. Denies: palpitations Respiratory: Reports: cough, dyspnea Gastrointestinal: Reports: abdominal pain. Denies: nausea, vomiting, diarrhea, constipation, hematemesis, melena, hematochezia Genitourinary: Denies: urgency, dysuria, frequency, hematuria Musculoskeletal: Reports: neck pain. Denies: back pain Neurological: Reports: headache. Denies: weakness, numbness, paresthesias Past Medical History - Past Medical History Medical history: Reports: arthritis, asthma, COPD, GERD, hypertension Surgical history: Reports: no surgical history Psychiatric history: Reports: no psych history - Social History Smoking Status: Former smoker Smokeless Tobacco Status: No Alcohol use: Reports: rarely Drug use: Reports: none Physical Exam - General Limitations: no limitations General appearance: alert, in no apparent distress Course Vital Signs Temperature 100.3 F H 04/18/18 17:25 Pulse Rate 99 04/18/18 17:25 Respiratory Rate 20 04/18/18 17:25 Blood Pressure 132/79 04/18/18 17:25 O2 Sat by Pulse Oximetry 88 04/18/18 17:25 Temperature 100.3 F H 04/18/18 17:25 Pulse Rate 90 04/18/18 19:15 Respiratory Rate 20 04/18/18 19:15 Blood Pressure 143/70 04/18/18 19:15 O2 Sat by Pulse Oximetry 97 04/18/18 19:15 Oxygen Delivery Oxygen Delivery Nasal Cannula Medical Decision Making - Lab Data Result diagrams: 04/18/18 17:55 04/18/18 17:55 Lab Results 04/18/18 04/18/18 04/18/18 Range/Units 17:55 17:55 17:55 WBC 5.8 (4.3-11.1) K/mcL RBC 4.26 (4.19-5.50) M/mcL Hgb 13.7 (12.9-16.9) g/dL Hct 39.9 (37.5-50.1) % MCV 93.7 (83.0-100.0) fL MCH 32.2 (28.0-33.3) pg MCHC 34.3 (31.6-35.5) g/dL RDW 12.7 (11.5-14.5) % Plt Count 207 (140-400) K/mcL MPV 9.5 (9.4-12.4) fL Immature Gran % 1.0 (0-4) % Seg Neutrophils % 58.6 % Lymphocytes % 17.7 % Monocytes % 17.2 % Eosinophils % 4.1 % Basophils % 1.4 % Neutrophils # 3.4 (1.6-8.9) K/mcL Lymphocytes # 1.0 (0.6-4.6) K/mcL Monocytes # 1.0 (0.0-1.3) K/mcL Eosinophils # 0.2 (0.0-0.6) K/mcL Basophils # 0.1 (0.0-0.2) K/mcL PT 13.0 H (9.4-12.1) Seconds INR 1.2 APTT 28.3 (26.0-36.0) Seconds Sodium 135 L (136-145) mEq/L Potassium 3.6 (3.5-5.1) mEq/L Chloride 101 (98-107) mEq/L Carbon Dioxide 24 (23-29) mEq/L BUN 16 (8-23) mg/dL Creatinine 1.13 (0.70-1.30) mg/dL Est GFR ( Amer) > 60 (> 60) Est GFR (Non-Af Amer) > 60 (> 60) BUN/Creatinine Ratio 14 (6-26) Glucose 102 (70-105) mg/dL Calculated Osmolality 281 (280-300) Lactic Acid (0.5-2.2) mmol/L Calcium 9.8 (8.6-10.3) mg/dL Phosphorus 3.1 (2.7-4.5) mg/dL Magnesium 1.8 (1.6-2.6) mg/dL Total Bilirubin 0.7 (0.3-1.0) mg/dL Direct Bilirubin 0.1 (0.0-0.2) mg/dL Indirect Bilirubin 0.6 (0.0-1.2) mg/dL AST 26 (13-39) Units/L ALT 20 (7-52) Units/L Alkaline Phosphatase 62 (34-104) Units/L Troponin I < 0.03 (< 0.04) ng/mL B-Natriuretic Peptide (Less than 100) pg/mL Serum Total Protein 6.6 (6.4-8.9) g/dL Albumin 4.2 (3.5-5.7) g/dL Globulin 2.4 (2.4-3.5) g/dL Albumin/Globulin Ratio 1.8 (1.1-2.2) 04/18/18 04/18/18 Range/Units 17:55 17:55 WBC (4.3-11.1) K/mcL RBC (4.19-5.50) M/mcL Hgb (12.9-16.9) g/dL Hct (37.5-50.1) % MCV (83.0-100.0) fL MCH (28.0-33.3) pg MCHC (31.6-35.5) g/dL RDW (11.5-14.5) % Plt Count (140-400) K/mcL MPV (9.4-12.4) fL Immature Gran % (0-4) % Seg Neutrophils % % Lymphocytes % % Monocytes % % Eosinophils % % Basophils % % Neutrophils # (1.6-8.9) K/mcL Lymphocytes # (0.6-4.6) K/mcL Monocytes # (0.0-1.3) K/mcL Eosinophils # (0.0-0.6) K/mcL Basophils # (0.0-0.2) K/mcL PT (9.4-12.1) Seconds INR APTT (26.0-36.0) Seconds Sodium (136-145) mEq/L Potassium (3.5-5.1) mEq/L Chloride (98-107) mEq/L Carbon Dioxide (23-29) mEq/L BUN (8-23) mg/dL Creatinine (0.70-1.30) mg/dL Est GFR ( Amer) (> 60) Est GFR (Non-Af Amer) (> 60) BUN/Creatinine Ratio (6-26) Glucose (70-105) mg/dL Calculated Osmolality (280-300) Lactic Acid 0.8 (0.5-2.2) mmol/L Calcium (8.6-10.3) mg/dL Phosphorus (2.7-4.5) mg/dL Magnesium (1.6-2.6) mg/dL Total Bilirubin (0.3-1.0) mg/dL Direct Bilirubin (0.0-0.2) mg/dL Indirect Bilirubin (0.0-1.2) mg/dL AST (13-39) Units/L ALT (7-52) Units/L Alkaline Phosphatase (34-104) Units/L Troponin I (< 0.04) ng/mL B-Natriuretic Peptide 19 (Less than 100) pg/mL Serum Total Protein (6.4-8.9) g/dL Albumin (3.5-5.7) g/dL Globulin (2.4-3.5) g/dL Albumin/Globulin Ratio (1.1-2.2) Attestation Statement - Attestation Attestation: I, Nicolas Tapia DO, examined this patient [id number] and my medical decision-making was reviewed with Dr. Lopez Monroy, Resident Physician. I agree with the documented findings, disposition and treatment plan as described except to the extent set forth below. Please see my progress notes for details. 63-year-old male presents emergency room for evaluation of generalized malaise with fever and productive cough. Patient was seen and evaluated and discharged from the hospital on 920 2018 with a known diagnosis of Pseudomonas pneumonia. Patient was continued on PICC line IV antibiotics at home for several days. Was stopped off those here recently. Patient is awake his pneumonia is coming back. She denies any travel outside the country. He is immunosuppressed while being on methotrexate an emoril secondary to psoriatic arthritis. Patient denying chest pain nausea vomiting or diarrhea. Intermittent fevers and chills. Denies any changes urinary habits or bowel habits. Denies any other symptoms including trauma or injury. Patient's main concern is that he feels like his pneumonia is coming back. He has generalized malaise across entire body and denies any other complaints at this point. He did describe his symptoms as tightness stiffness. He has neck tightness and stiffness across his entire body. Patient does not have any acute signs of meningeal symptoms. His Kernig's negative and Brudzinski's negative. He has no neurologic symptoms this time. Head is atraumatic pupils are round reactive mucous membranes are moist oropharynx is patent. Trachea is midline. Lungs are clear. No auscultated the coarse breath sounds or rhonchi. Abdomen is soft nontender nondistended no guarding no rigidity. No peritoneal symptoms. Pulses are intact. No signs of rash lesions of petechial-like presentation. Patient is concerning based on the presentation for progression or reemergence of his pneumonia. IV antibiotics including vancomycin and Rocephin were initially ordered secondary to the neck stiffness issues but after discussion at the bedside he does not appear to be meningeal in nature. A discussion was had about lumbar puncture but the patient is declining at this point. Maxipime was added on secondary to the patient's most recent antibiotic regimen provided by infectious disease. Patient does use CPAP in his immunosuppressive with consideration for the Pseudomonas infection is well accounted for. Disposition will most likely be admission the hospital for repeat evaluation treatment. Patient otherwise clinically stable. Sepsis evaluation was started this time. See detailed documentation physical exam, medical intervention, medical decision -making disposition the resident physician's note. No critical care provider the patient's treatment course at this time. 193 Consultation with infectious disease physician Dr. Hansen was completed along with a conversation with the hospitals for admission. Detailed review the presentation symptoms medical intervention including antibiotics as well as recommendations for cultures and continuation of care along with laboratory workup were discussed and reviewed. The requested labs were placed in the emergency room and antibiotic regimen started. Patient will be admitted. Chest x-ray shows stable if not persistent left lower lobe pneumonia. Labs otherwise unremarkable. Patient has had productive sputum tachycardia and fever consistent with his previous presentation of pneumonia. Antibiotic regimen has been escalated this point admission process to be established. See detailed documentation of this conversational physician's note. Patient will be observed in emergency room until admission process is completed patient does not meet any criteria for severe sepsis at this time. He does have sirs criteria with a source to diagnosis of sepsis was documented the patient does not require any aggressive resuscitation.
[2018-04-18] MEDS ORDERED: Doxycycline 100 MG in 0.9 % Sodium Chloride Mini Bag 100 ML IVPB ONE (19:11)
[2018-04-18] MEDS ORDERED: Acetaminophen 325 MG TABLET PO ONE (19:52)
[2018-04-18] MEDS ORDERED: Naloxone 0.4 MG/ML INJ IVP PRN ×2 (19:54→19:56)
[2018-04-18] MEDS ORDERED: traZODone 50 MG TABLET PO PRN (19:57)
[2018-04-18 19:59] LABS: Bilirubin,Urine Negative (Negative); Blood,Urine Negative (Negative); Clarity,Urine Clear (Clear); Color,Urine Yellow (Yellow); Glucose,Urine (UA) Normal (Normal); Ketones,Urine Negative (Negative); Leukocyte Esterase,Urine Negative (Negative); Nitrite,Urine Negative (Negative); PH,Urine 6.5 pH Units (5.0-8.0); Protein,Urine Negative (Neg-Trace); Specific Gravity,Urine 1.015 (1.010-1.025); Urobilinogen,Urine Normal (Normal)
[2018-04-18] MEDS ORDERED: Ipratropium/Albuterol Neb 3 ML IH PRN (20:21)
[2018-04-18] MEDS ORDERED: Acetaminophen 325 MG TABLET PO PRN (20:23)
[2018-04-18] MEDS ORDERED: Ketorolac 30 MG/ML VIAL IVP PRN (20:23)
--- NOTE | 2018-04-18 20:39 | Internal Med History&Physical ---
<Nathanael Christensen - Last Filed: 04/18/18 20:47> Date of Encounter: 04/18/18 Time of Encounter: 20:20 Internal Medicine - H&P: HPI Chief complaint: Headache, fever, cough Admitted From: Emergency Dept Plans for Post Hospital Care: Home History of present illness: Mr. Ocampo is a 63 year old male with history of psoriatic arthritis, COPD, GERD, hypertension and recent hospitalization for pseudomonas pneumonia about 3 weeks ago who presents to the hospital with 2 day history of fever, malaise, and worsening cough with sputum production. The patient is a primary care physician and Liam who has been admitted to this hospital recently for difficult to treat pseudomonal pneumonia and has been seen by infectious disease in the past. He states that his symptoms initially started approximately 2-3 days ago when he began having a cough with yellow-green sputum production, which was quickly followed by a fever that andres to about 102.2. He says that prior to this he was feeling generally well. He was discharged from the hospital approximately 3 weeks ago and finished a 10 day course of IV cefepime. In addition to the symptom of cough, the patient does note that he had increased shortness of breath and decreased oxygen saturation. The patient does apparently use home oxygen at night with his CPAP device and requires approximately 3 L of oxygen. He and his note that his oxygen saturation dropped to 83 or 84% throughout the night last night, and throughout the day today. He initially was concerned that he may need to come to the hospital last night. He is able to withstand the night by taking some Tylenol which did help some of symptoms, and by using his oxygen. In addition to symptoms of cough, the patient also has severe headache which is left-sided and sharp in nature. The pain is approximately 4-5/10, nonradiating. He has some pain in his neck as well which is exacerbated by movement but he does not feel that it is significantly stiff. He feels that this is primarily caused by the fact that he is not moving a lot due to the fact that he is feeling ill. He does not feel any stiffness in his back at all. He denies any photophobia or phonophobia. He also denies any visual changes or disturbances. Significantly, the patient does have a history of psoriatic arthritis for which he is treated with Enbrel and methotrexate. Additionally, the patient does have history of COPD for which he uses a Spiriva inhaler and home oxygen. He was most recently discharged from [facility] on 03/27/18 with a total of 10 days to complete of IV cefepime which he did with home health and saw significant improvement until these past 2 days. In the ED, the patient had a chest x-ray which I reviewed myself and did demonstrate some streaky opacities in the bilateral lower lung cohn. He was found to have a fever of 100.3, heart rate 99, respiratory rate 26 and was saturating 88% on room air. Infectious disease was consulted from the emergency department and Dr. Craig suggested that the patient be continued on Cefepime, Doxycycline, and Vancomycin at this time. He also recommended pulmonology consult in the morning for bronchoscopy. Past Med Surg Social Fam HX - Past Medical History Medical history: arthritis, asthma, COPD, GERD, hypertension Psychiatric history: no psych history - Past Surgical History Surgical History: no surgical history Additional surgical history: miniscus right knee, hernia repair - Social History Smoking Status: Former smoker Smokeless Tobacco Status: No Alcohol use: rarely Drug use: none - Family History Mother Family Member Ethnicity: Non- Living Status: Hx Family Cardiac Disorders: Yes (HTN, A-FIB) Hx Family Respiratory Disorders: No Hx Family Cancer: Yes (melanoma) Hx Family GI Disorders: No Hx Family Endocrine Disorder: No Hx Family Neuromuscular Disorders: No Hx Family Neurologic Disorders: Yes (DEMENTIA) Hx Family HEENT Disorders: No Hx Family Autoimmune Disorders: No Internal Medicine - H&P: Meds Acetylcysteine [E-Ueppyd-x-Cysteine] 600 mg PO BID 03/25/18 [History] Albuterol Sulfate [Ventolin Hfa] 2 puff IH Q4-6H PRN 03/25/18 [History] Etanercept [Enbrel] 50 mg SQ PALMER 03/25/18 [History] Folic Acid 1 mg PO DAILY 03/25/18 [History] Methotrexate [Otrexup] 15 mg PO PALMER 03/25/18 [History] Montelukast [Singulair] 10 mg PO DAILY 03/25/18 [History] Olmesartan/Hydrochlorothiazide [Olmesartan-Hctz 40-25 mg Tab] 1 tab PO DAILY [History] Tiotropium [place] [Spiriva Respimat] 1 puff IH DAILY 03/25/18 [History] Trazodone HCl 100 mg PO HS PRN 03/25/18 [History] raNITIdine HCl [Zantac] 150 mg PO BID 03/25/18 [History] Lactobacillus Acidophilus [Acidophilus Probiotic] 1 mg PO BID #30 tablet [Rx] 3 Allergy/AdvReac Type Severity Reaction Status Date / Time azithromycin [From Zithromax] Allergy Hives Verified 03/25/18 09:13 levofloxacin [From Levaquin] Allergy Difficulty Verified 03/25/18 09:13 Breathing All Systems PM: A 10-system review of systems was performed and is negative for pertinent findings except as documented above in the HPI. Review of systems: Constitutional: Admits to fevers, chills, generalized fatigue Head/Neck: Admits to headaches, some neck stiffness EENT: Denies vision changes/blurriness, rhinorrhea, congestion, sore throat CVS: Denies chest pain, palpitations, CLEMONS, orthopnea, edema, PND Pulm: Admits to some shortness of breath, cough, sputum production GI: Denies abdominal pain, nausea, vomiting, diarrhea, constipation, melena, hematemasis : Denies dysuria, increased frequency, urgency, hematuria Heme: Denies ease of bleeding or bruising MSK: Denies joint pain, limited ROM Skin: Denies rashes, ulcers, color changes Neuro: Denies paresthesias, focal deficits, ataxia. Admits to headache - Constitutional Vitals: Temp Pulse Resp BP Pulse Ox 100.3 F H 87 20 143/65 96 04/18/18 19:56 04/18/18 19:47 04/18/18 19:47 04/18/18 19:47 04/18/18 19:47 Exam: Gen: Vitals noted. No acute distress. HEENT: Normocephalic, atraumatic Neck: Supple. No adenopathy. Cardiac: RRR, no murmur, +S1/S2 Pulmonary: Bibasilar crackles however significantly more notable in the right lung base Abdomen: soft, nontender, no guarding Back: Nontender throughout. MSK: ROM intact, no joint swelling noted Extremities: no BLE edema, nontender calf, no cyanosis or clubbing Neuro: moves all extremities, no focal deficits. A&Ox3. No meningeal signs, no nuchal rigidity Psych: Appropriate mood and behavior Internal Med - H&P Results - Labs CBC & Chem 7: 04/18/18 17:55 04/18/18 17:55 Labs: Urine 04/18/18 Range/Units 19:47 Urine Color Yellow (Yellow) Urine Clarity Clear (Clear) Urine pH 6.5 (5.0-8.0) pH Units Ur Specific [place] 1.015 (1.010-1.025) Urine Protein Negative (Neg-Trace) mg/dL Urine Glucose (UA) Normal (Normal) mg/dL - Assessment and plan (1) Sepsis Current Visit: Yes Status: Suspected Assessment and plan: Suspected Sepsis, secondary to suspected Pseudomonas pneumonia infection Presents with Fever 100.3, Tachycardia, Tachypnea. Suspected source: Pneumonia Currently the patient does not have significant leukocytosis, no evidence of shock at this time Got 2.5L Fluid bolus in the ED consistent with 30mL/kg bolus demand We will continue 100mL/hour fluids at this time Start Empiric antibiotics per ID Cefepime Vancomycin Doxycycline Consult Pulmonology for Bronchoscopy Consult ID Qualifiers: Sepsis type: Pseudomonas Qualified Code(s): A41.52 - Sepsis due to Pseudomonas (2) Pneumonia Current Visit: Yes Status: Acute Assessment and plan: Pneumonia, suspected pseudomonas Presents with fever, chills, cough with sputum production On arrival he has increased O2 demand at baseline and some wheezes CXR shows streaky opacities in B/L lower lung bases consistent with recurrent pneumonia Plan to treat with Cefepime, Vancomycin, Doxycycline per ID Continue supplemental O2 to maintain SPO2 >92% Scheduled and PRN [place] Qualifiers: Pneumonia type: due to Pseudomonas Laterality: unspecified laterality Lung location: unspecified part of lung Qualified Code(s): J15.1 - Pneumonia due to Pseudomonas (3) Psoriatic arthritis Current Visit: No Status: Chronic Assessment and plan: Chronic psoriatic arthritis, no acute exacerbation We will hold Enbril and Methotrexate due to severe infection Tyelenol and toradol for pain (4) Immunocompromised Current Visit: Yes Status: Acute Assessment and plan: Secondary to enbril and methotrexate use (5) HTN (hypertension) Current Visit: Yes Status: Chronic Assessment and plan: Continue home meds Consider PRN med if necessary Qualifiers: Hypertension type: essential hypertension Qualified Code(s): I10 - Essential (primary) hypertension (6) DVT prophylaxis Current Visit: No Status: Acute Assessment and plan: SQ Heparin (7) Chronic respiratory failure Current Visit: Yes Status: Acute Assessment and plan: Acute on Chronic respiratory failure Secondary to COPD with superimposed pneumonia Continue O2 to maintain SPO2 >92% Scheduled and PRN [place] Qualifiers: Respiratory failure complication: hypoxia Qualified Code(s): J96.11 - Chronic respiratory failure with hypoxia - Time Spent With Patient Total time spent is greater than 50% in coordination of care (as documented) at patient's floor/unit and/or counseling patient: <Rolanda Aviles - Last Filed: 04/18/18 22:52> Date of Encounter: 04/18/18 Internal Medicine - H&P: HPI History of present illness: Mr. Ocampo is a 63 year old male All Systems PM: A 10-system review of systems was performed and is negative for pertinent findings except as documented above in the HPI. - Constitutional Vitals: Temp Pulse Resp BP Pulse Ox 100.2 F H 86 18 139/74 94 04/18/18 21:10 04/18/18 21:10 04/18/18 22:31 04/18/18 21:10 04/18/18 22:31 Internal Med - H&P Results - Labs CBC & Chem 7: 04/18/18 17:55 04/18/18 17:55 - Assessment and plan (1) Pneumonia Current Visit: Yes Status: Acute Qualifiers: Pneumonia type: due to Pseudomonas Laterality: unspecified laterality Lung location: unspecified part of lung Qualified Code(s): J15.1 - Pneumonia due to Pseudomonas (2) Psoriatic arthritis Current Visit: No Status: Chronic (3) Immunocompromised Current Visit: Yes Status: Acute (4) Sepsis Current Visit: Yes Status: Suspected Qualifiers: Sepsis type: Pseudomonas (5) HTN (hypertension) Current Visit: Yes Status: Chronic Qualifiers: Hypertension type: essential hypertension Qualified Code(s): I10 - Essential (primary) hypertension (6) DVT prophylaxis Current Visit: No Status: Acute (7) Chronic respiratory failure Current Visit: Yes Status: Acute Qualifiers: Respiratory failure complication: hypoxia Qualified Code(s): J96.11 - Chronic respiratory failure with hypoxia - Time Spent With Patient Total time spent is greater than 50% in coordination of care (as documented) at patient's floor/unit and/or counseling patient: - Attending Attestation Patient seen and examined. Chart reviewed. Case discussed with resident. Agree with assessment and plan. We will admit patient for healthcare associated pneumonia in the setting of immunosuppressive therapy for psoriatic arthritis. Low suspicion at this time for meningitis given patient's history of fever and headache. Headache resolved after fluid administration. ID and pulmonary on board. Plan for possible bronchoscopy tomorrow. We will keep patient nothing by mouth. Continue with antibiotic regimen as per ID.
[2018-04-18] MEDS ORDERED: Ringers Solution, Lactated 500 ML IVC ONE (21:27)
[2018-04-18] MEDS: Ringers Solution, Lactated 1,000 ML IVC SCH (21:53)
[2018-04-18] MEDS: traZODone 50 MG TABLET PO SCH (21:54)
[2018-04-18] MEDS: Ipratropium/Albuterol Neb 3 ML IH SCH (22:29)
--- NOTE | 2018-04-19 02:16 | Sepsis Event Note ---
Sepsis Reassessment Note - Evaluation Sepsis Screen: No Definite Risk Current Stage of Sepsis: sepsis Possible Source of Sepsis: pulmonary - Focused Exam Date of Encounter: 04/19/18 Time of Encounter: 02:15 Vital Signs: Vital Signs Temp Pulse Resp BP Pulse Ox 04/19/18 00:30 16 92 04/18/18 23:55 98.7 F 80 16 115/67 92 04/18/18 22:31 18 94 04/18/18 21:10 100.2 F H 86 15 139/74 91 Respiratory Exam: Present: crackles Cardiovascular Exam: Present: RRR Capillary Refill: < 2 seconds Peripheral Pulse Strength: 1+ faint Peripheral Pulse Location: Pedal Skin Exam: unremarkable
[2018-04-19 03:45] LABS: Hematocrit 37.9 % (37.5-50.1); Lymphocytes # 0.9 K/mcL (0.6-4.6); Mean Corpuscular HGB Conc 34.3 g/dL (31.6-35.5); Mean Corpuscular Hemoglobin 32.6 pg (28.0-33.3); Mean Platelet Volume 9.4 fL (9.4-12.4); Platelet Count 178 K/mcL (140-400); Red Blood Count 3.99 M/mcL (4.19-5.50)
[2018-04-19 04:03] LABS: Alanine Aminotransferase 17 Units/L (7-52); Albumin 3.6 g/dL (3.5-5.7); Albumin/Globulin Ratio 1.6 (1.1-2.2); Alkaline Phosphatase 51 Units/L (34-104); Aspartate Amino Transferase 23 Units/L (13-39); BUN/Creatinine Ratio 12 (6-26); Bilirubin,Total 0.4 mg/dL (0.3-1.0); Blood Urea Nitrogen 14 mg/dL (8-23); Calcium 9.4 mg/dL (8.6-10.3); Carbon Dioxide 25 mEq/L (23-29); Chloride 107 mEq/L (98-107); Globulin 2.3 g/dL (2.4-3.5); Glucose 94 mg/dL (70-105); Osmolality,Calculated 286 (280-300); Potassium 3.8 mEq/L (3.5-5.1); Sodium 138 mEq/L (136-145); Total Protein 5.9 g/dL (6.4-8.9); eGFR For Non-African Americans > 60 (> 60)
[2018-04-19] MEDS: Ipratropium/Albuterol Neb 3 ML IH SCH ×6 (04:23→23:52)
[2018-04-19 04:26] LABS: Platelet Estimate Normal (Normal); Reactive Lymphocytes Present (Not Present)
[2018-04-19 04:32] LABS: Eosinophils # 0.2 K/mcL (0.0-0.6); Monocytes # 0.9 K/mcL (0.0-1.3); Neutrophils # 2.4 K/mcL (1.6-8.9)
[2018-04-19 04:34] LABS: Anisocytosis 1+ (Not Present)
[2018-04-19] MEDS: Cefepime HCl 2,000 MG in Water for inj. (sterile) 20 ML 20 ML IVP SCH ×3 (05:16→18:45)
[2018-04-19] MEDS: *HR* Heparin 5,000 UNIT/ML VIAL SQ SCH ×3 (05:16→16:45)
--- NOTE | 2018-04-19 06:39 | Pulmonology Consult Note ---
Date of Encounter: 04/19/18 Time of Encounter: 06:39 Assessment and Plan (1) Acute respiratory failure with hypoxia Current Visit: Yes Status: Acute This is secondary to suspected Pneumonia and COPD exacerbation Acceptable Oxygenation today on Nasal Cannula O2% Cont Supplemental O2 to keep O2 Sat >88% to around 92% Encourage Incentive Spirometry OOBTC and Early Ambulation as tolerated DVT prophylaxis while in patient. (2) Pneumonia Current Visit: Yes Status: Acute Recent history of treatment for sensistive PSDA I reviewed the patients CT scan from 03/27 and 04/02 which was notable for left lower lobe pneumonia which would correlate with Pseudomonas infection on however there was a marked improvement in the radiographic appearance of the infiltrate the chest x-ray that was performed yesterday was notable for a few streaky opacities which may be evidence of residual disease from a purely radiographic standpoint there is no clear evidence in my mind that the patient has had failure of treatment for original pseudomonal pneumonia. It is quite possible that he has developed a new pneumonia or has another infection altogether at this point for this reason I have suggested that we repeat his CT scan to see if there is evidence of a new infiltrate in to follow-up on the resolution of the left lower lobe opacity with comparison with previous CT scan. Although patient displayed some reservation about repeating CT scan was understandable concerns about radiation exposure he is willing to undergo this testing. I think this is also useful because the possibility this may be a noninfectious process (organizing PNA) although less likely. He continues to have a low-grade temperature today -Noncontrasted CT scan of the chest which I have ordered -Send sputum culture and respiratory infection panel along with MRSA screen -Agree with broad-spectrum antimicrobials including antipseudomonal cephalosporin at present -Agree with infectious disease consultation -Would keep nothing by mouth until CT scan done to see if bronchoscopy is warranted clearly with his immunocompromise status I would have a low threshold for doing this Qualifiers: Pneumonia type: due to Pseudomonas Laterality: unspecified laterality Lung location: unspecified part of lung Qualified Code(s): J15.1 - Pneumonia due to Pseudomonas (3) COPD with acute exacerbation Current Visit: No Status: Acute Agree with scheduled bronchodilators are also add oral glucocorticoids prednisone 40 mg daily for the next 5 days (4) Immunocompromised Current Visit: Yes Status: Acute He is an increased risk for atypical infections including fungal infections we will continue to monitor this I think the CT scan will be helpful at A if there is any concern for additional process (5) Psoriatic arthritis Current Visit: No Status: Chronic He is on Enbrel and MTX for this agree with holding these in the acute setting as of active infection History of Present Illness Consult date: 04/19/18 Requesting physician: Nathanael Christensen Reason for consult: pneumonia Chief complaint: Difficulty in Breathing History of present illness: The patient is a pleasant 63-year-old gentleman with a past medical history of psoriatic arthritis on immune modulating medications including ENBREL and MTX COPD hypertension recently had Pseudomonas pneumonia for which she was hospitalized and was following with infectious disease after discharge from the hospital. Presented yesterday the emergency department be complaining of cough with yellow-green sputum and fevers and chills with a home temperature up to 102.2. Also noted to be hypoxic in the low 80s. In the emergency department had a fever 100.3 heart rate was 99 and respiratory rate was 26 saturating 88% on room air. He was started on broad-spectrum antibiotics for pneumonia and treated for severe sepsis by the ED/hospitalist team. Apparently the infectious disease attending was consulted from the emergency department on this case and they recommended pulmonary consultation as the patient pain require bronchoscopy and thus the pulmonary service is evaluating the patient at this time. Patient has been diagnosed with asthma in the past was a former smoker but that is now in remission has CT scan done last time was notable for emphysematous changes. He has history of obstructive sleep apnea and wears CPAP at night with oxygen bleed. Generally very active lifestyle has very good exercise tolerance basis over the last 3 weeks and especially the last couple of days his had very limited exercise capacity is noted to desat when walking. He keeps a dog and a cat at home no exotic pets or exposure to birds. 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 Past Med Surg Social Fam HX - Past Medical History Medical history: arthritis, asthma, COPD, GERD, hypertension Psychiatric history: no psych history - Past Surgical History Surgical History: no surgical history Additional surgical history: miniscus right knee, hernia repair - Social History Smoking Status: Former smoker Smokeless Tobacco Status: No Alcohol use: rarely Drug use: none - Family History Mother Family Member Ethnicity: Non- Living Status: Hx Family Cardiac Disorders: Yes (HTN, A-FIB) Hx Family Respiratory Disorders: No Hx Family Cancer: Yes (melanoma) Hx Family GI Disorders: No Hx Family Endocrine Disorder: No Hx Family Neuromuscular Disorders: No Hx Family Neurologic Disorders: Yes (DEMENTIA) Hx Family HEENT Disorders: No Hx Family Autoimmune Disorders: No Medications and Allergies Acetylcysteine [T-Rwgzbl-n-Cysteine] 600 mg PO BID 03/25/18 [History] Albuterol Sulfate [Ventolin Hfa] 2 puff IH Q4-6H PRN 03/25/18 [History] Etanercept [Enbrel] 50 mg SQ PALMER 03/25/18 [History] Folic Acid 1 mg PO DAILY 03/25/18 [History] Methotrexate [Otrexup] 15 mg PO PALMER 03/25/18 [History] Montelukast [Singulair] 10 mg PO DAILY 03/25/18 [History] Olmesartan/Hydrochlorothiazide [Olmesartan-Hctz 40-25 mg Tab] 1 tab PO DAILY [History] Tiotropium [place] [Spiriva Respimat] 1 puff IH DAILY 03/25/18 [History] Trazodone HCl 100 mg PO HS PRN 03/25/18 [History] raNITIdine HCl [Zantac] 150 mg PO BID 03/25/18 [History] Lactobacillus Acidophilus [Acidophilus Probiotic] 1 mg PO BID #30 tablet [Rx] 3 Allergy/AdvReac Type Severity Reaction Status Date / Time azithromycin [From Zithromax] Allergy Hives Verified 03/25/18 09:13 levofloxacin [From Levaquin] Allergy Difficulty Verified 03/25/18 09:13 Breathing All Systems: The remainder of the systems were reviewed and are negative Physical Examination Vital Signs: Vital Signs, Last 4 Hours Temp Pulse Resp BP Pulse Ox 04/19/18 04:23 23 95 04/19/18 03:47 98.1 F 74 16 124/70 95 General appearance: no acute distress Eyes: nonicteric ENT: oropharynx moist Neck: supple, no lymphadenopathy Effort: normal Auscultation: bilateral: clear, rhonchi (scattered ) Cardiovascular: regular rate and rhythm Gastrointestinal: normoactive bowel sounds, soft, non-tender Integumentary: normal Extremities: no cyanosis, no edema, no clubbing Musculoskeletal: no deformities normal mental status, non-focal exam mood appropriate Results - Laboratory Findings CBC and BMP: 04/19/18 03:11 04/19/18 03:11 PT/INR, D-dimer PT 13.0 Seconds (9.4-12.1) H 04/18/18 17:55 Abnormal lab findings: Abnormal lab results RBC 3.99 M/mcL (4.19-5.50) L 04/19/18 03:11 Reactive Lymphocytes Present (Not Present) A 04/19/18 03:11 Anisocytosis 1+ (Not Present) A 04/19/18 03:11 PT 13.0 Seconds (9.4-12.1) H 04/18/18 17:55 Serum Total Protein 5.9 g/dL (6.4-8.9) L 04/19/18 03:11 Globulin 2.3 g/dL (2.4-3.5) L 04/19/18 03:11 - Diagnostic Findings Chest x-ray: report reviewed, image reviewed - Clinical Findings Intake & Output: Intake & Output 04/18/18 04/18/18 04/19/18 15:59 23:59 07:59 Intake Total 0 / 2370 0 / 0 Output Total 0 / 0 700 / 700 Balance 0 / 2370 -700 / -700 Weight 80.739 kg 80.9 kg Consult Discharge Plan - Plan Referrals: NONE,PCP [Primary Care Provider] -
[2018-04-19] MEDS: Doxycycline 100 MG in 0.9 % Sodium Chloride Mini Bag 100 ML IVPB SCH ×2 (08:20→20:52)
[2018-04-19] MEDS: Ringers Solution, Lactated 1,000 ML IVC SCH (08:22)
[2018-04-19] MEDS: Famotidine 20 MG TABLET PO SCH ×2 (08:38→16:43)
[2018-04-19] MEDS ORDERED: hydroCHLOROthiazide 25 MG TABLET PO SCH (09:00)
[2018-04-19] MEDS ORDERED: Tiotropium 18 MCG inhalation IH SCH (10:00)
[2018-04-19 10:26] LABS: Adenovirus Not Detected (Not Detect); Bordetella Pertussis Not Detected (Not Detect); Chlamydophila pneumoniae Not Detected (Not Detect); Coronavirus 229E Not Detected (Not Detect); Coronavirus HKU1 Not Detected (Not Detect); Coronavirus NL63 Not Detected (Not Detect); Coronavirus OC43 Not Detected (Not Detect); Human Metapneumovirus Not Detected (Not Detect); Human Rhinovirus/Enterovirus Not Detected (Not Detect); Influenza A Subtype 2009 H1 Not Detected (Not Detect); Influenza A Untypeable Not Detected (Not Detect); Influenza B Not Detected (Not Detect); Mycoplasma pneumoniae Not Detected (Not Detect); Parainfluenza Virus 1 Not Detected (Not Detect); Parainfluenza Virus 2 Not Detected (Not Detect); Parainfluenza Virus 3 Not Detected (Not Detect); Parainfluenza Virus 4 Not Detected (Not Detect); Respiratory Syncytial Virus Not Detected (Not Detect)
[2018-04-19] MEDS: GuaiFENesin/Pseudophedrine TABLET PO SCH ×2 (12:54→20:46)
--- NOTE | 2018-04-19 13:21 | Internal Med Progress Note ---
<Wanda Duggan - Last Filed: 04/19/18 15:55> Hospitalist Progress Note - Encounter Date of Encounter: 04/19/18 Time of Encounter: 09:51 - Subjective Interval History: DrRefugio Aj Ocampo is a 63 year old gentleman with a history of psoriatic arthritis, COPD on 3L supplemental O2 HS, GERD, and HTN with recent hospitalization 3 weeks ago for psuedomonas pneumonia. He had completed a 10 day course of IV cefepime, however he felt that he was not getting better. Within the past 2 days he has experienced fever (102.2), malaise, and worsening cough with sputum production. He gets SOB with minimal exertion and his O2 sats were dropping in the low 80s, which is why he came to the ED. On presentation he was febrile at 100.3, tachypneic at 26, HR 99, 86% on RA. He continues to be SOB on minimal exertion and now states that his cough is non- productive. He is currently 93% on 3L NC. Patient denies chest pain, nausea, vomiting, abd pain, dysuria, hematuria. - Exam Vitals: Temp Pulse Resp BP Pulse Ox 100.8 F H 95 15 152/68 94 04/19/18 12:47 04/19/18 12:47 04/19/18 12:47 04/19/18 12:47 04/19/18 12:47 Exam: Gen: NAD. Lying comfortably in bed. HEENT: Normocephalic, atraumatic Cardiac: RRR, no murmur, normal S1/S2 Pulmonary: 93% on 3L NC, Bibasilar crackles, no wheezing noted Abdomen: soft, nontender, no guarding Extremities: no BLE edema, nontender calf, no cyanosis or clubbing Neuro: moves all extremities, no focal deficits. A&Ox3. No meningeal signs, no nuchal rigidity Psych: Appropriate mood and behavior - Assessment and Plan (1) Sepsis Current Visit: Yes Status: Suspected Assessment and Plan: Likely secondary to pneumonia Presented with fever 100.3, HR 99, RR 26 Continues to be febrile at 100.1 this morning, intermittently tachypneic 93% on 3L NC WBC 5.8 on admission, 4.3 today Continue Cefepime, Vanc, Doxy Pulm following - sputum cx, resp panel, MRSA screen pending ID following - cont. abx (2) Acute and chronic respiratory failure Current Visit: Yes Status: Resolved Assessment and Plan: Likely secondary to PNA and COPD exacerbation 93% on 3L NC Crackles noted bilaterally in the bases, no wheezing noted Continue supplemental O2 Continue bronchodilators Encourage incentive spirometry (3) Pneumonia Current Visit: Yes Status: Acute Assessment and Plan: Possibly persistent psuedomonas versus new pneumonia (viral, fungal), immune compromised d/t Enbrel and Methotrexate Patient presented with worsening SOB, productive cough, fever, met SIRS criteria No leukocytosis Legionella and Strep Pneumo (-) MRSA (-) Repeat CT 04/19 - Interval resolution of previously described LLL PNA Resp panel, sputum cx pending Continue abx per ID recs Continue scheduled bronchodilators ID following, appreciate recommendations Pulm following, appreciate recommendations (4) COPD with acute exacerbation Current Visit: No Status: Acute Assessment and Plan: Possibly secondary to PNA 93% on 3L NC Continue abx Continue scheduled bronchodilators Started Prednisone 40 QD x 5d per pulm recs (5) Psoriatic arthritis Current Visit: No Status: Chronic Assessment and Plan: Chronic, not in acute exacerbation Immunocompromised d/t home medications Continue to hold Enbrel and Methotrexate d/t acute illness Tylenol and Toradol PRN pain (6) HTN (hypertension) Current Visit: Yes Status: Chronic Assessment and Plan: Chronic, stable Continue home meds (7) GERD (gastroesophageal reflux disease) Current Visit: Yes Status: Acute Assessment and Plan: Continue Pepcid 20 BID DVT Prophylaxis: SQ Heparin - Time Spent with Patient Total time spent is greater than 50% in coordination of care (as documented) at patient's floor/unit and/or counseling patient: Internal Medicine: Result - Labs CBC & Chem 7: 04/19/18 03:11 04/19/18 03:11 Labs: Short CBC 04/19/18 Range/Units 03:11 WBC 4.3 (4.3-11.1) K/mcL Hgb 13.0 (12.9-16.9) g/dL Hct 37.9 (37.5-50.1) % Plt Count 178 (140-400) K/mcL Neutrophils # 2.4 (1.6-8.9) K/mcL BMP 04/19/18 03:11 Sodium 138 Potassium 3.8 Chloride 107 Carbon Dioxide 25 BUN 14 Creatinine 1.18 Glucose 94 Calcium 9.4 Liver Function 04/19/18 Range/Units 03:11 Total Bilirubin 0.4 (0.3-1.0) mg/dL AST 23 (13-39) Units/L ALT 17 (7-52) Units/L Alkaline Phosphatase 51 (34-104) Units/L Albumin 3.6 (3.5-5.7) g/dL - ABG Interpretation ABG results: PT/INR, D-dimer PT 13.0 Seconds (9.4-12.1) H 04/18/18 17:55 - Impressions Impressions Chest CT 04/19/18 06:43 IMPRESSION: 1. Interval resolution of the previously described left lower lobe pneumonia. 2. No acute cardiopulmonary process identified. D/ / 04/19/2018 11:52:00 Fidencio Romero MD / prashanth Interpreting Provider: Fidencio Romero MD Consult Discharge Plan - Plan Referrals: NONE,PCP [Primary Care Provider] - <Miah Freitas - Last Filed: 04/19/18 16:42> Hospitalist Progress Note - Encounter Date of Encounter: 04/19/18 - Exam Vitals: Temp Pulse Resp BP Pulse Ox 100.8 F H 95 15 152/68 94 04/19/18 12:47 04/19/18 12:47 04/19/18 12:47 04/19/18 12:47 04/19/18 16:02 - Assessment and Plan (1) Sepsis Current Visit: Yes Status: Suspected (2) Pneumonia Current Visit: Yes Status: Acute (3) Psoriatic arthritis Current Visit: No Status: Chronic (4) Immunocompromised Current Visit: Yes Status: Chronic (5) HTN (hypertension) Current Visit: Yes Status: Chronic (6) DVT prophylaxis Current Visit: No Status: Acute (7) Chronic respiratory failure Current Visit: Yes Status: Acute - Time Spent with Patient Total time spent is greater than 50% in coordination of care (as documented) at patient's floor/unit and/or counseling patient: Internal Medicine: Result - Labs CBC & Chem 7: 04/19/18 03:11 04/19/18 03:11 Labs: Short CBC 04/19/18 Range/Units 03:11 WBC 4.3 (4.3-11.1) K/mcL Hgb 13.0 (12.9-16.9) g/dL Hct 37.9 (37.5-50.1) % Plt Count 178 (140-400) K/mcL Neutrophils # 2.4 (1.6-8.9) K/mcL BMP 04/19/18 03:11 Sodium 138 Potassium 3.8 Chloride 107 Carbon Dioxide 25 BUN 14 Creatinine 1.18 Glucose 94 Calcium 9.4 Liver Function 04/19/18 Range/Units 03:11 Total Bilirubin 0.4 (0.3-1.0) mg/dL AST 23 (13-39) Units/L ALT 17 (7-52) Units/L Alkaline Phosphatase 51 (34-104) Units/L Albumin 3.6 (3.5-5.7) g/dL - ABG Interpretation ABG results: PT/INR, D-dimer PT 13.0 Seconds (9.4-12.1) H 04/18/18 17:55 - Impressions Impressions Chest CT 04/19/18 06:43 IMPRESSION: 1. Interval resolution of the previously described left lower lobe pneumonia. 2. No acute cardiopulmonary process identified. D/ / 04/19/2018 11:52:00 Fidencio Romero MD / prashanth Interpreting Provider: Fidencio Romero MD - Attending Attestation I examined this patient and my medical decision-making was reviewed with the Resident Physician on 04/19/18. I agree with the documented findings, disposition and treatment plan as described except to the extent set forth below. 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 He remains moderate to high risk due to potential for worsening clinical status. Dr Nagy is feeling OK. No fever at this time. Still coughing. Seen by pulmonology this AM - appreciated. Repeat CT today is neg. Further testing is pending. Exam alert Comfortable. Mucus membranes dry Heart reg and not tachy Lungs with some rhonchi Abd soft No edema I/P 1. Pneumonia - continue abx. Pulm assist 2. Chronic hypoxic resp failure 3. Psoriatic arthritis Further diagnoses and plan as above. <Wanda Duggan - Last Filed: 04/19/18 15:55> (1) Sepsis Qualifiers: Sepsis type: Pseudomonas (2) Acute and chronic respiratory failure Qualifiers: Respiratory failure complication: hypoxia Qualified Code(s): J96.21 - Acute and chronic respiratory failure with hypoxia (3) Pneumonia Qualifiers: Pneumonia type: due to Pseudomonas Laterality: unspecified laterality Lung location: unspecified part of lung Qualified Code(s): J15.1 - Pneumonia due to Pseudomonas (6) HTN (hypertension) Qualifiers: Hypertension type: essential hypertension Qualified Code(s): I10 - Essential (primary) hypertension <Miah Freitas A - Last Filed: 04/19/18 16:42> (1) Sepsis Qualifiers: Sepsis type: Pseudomonas Qualified Code(s): A41.52 - Sepsis due to Pseudomonas (2) Pneumonia Qualifiers: Pneumonia type: due to Pseudomonas Laterality: left Lung location: lower lobe of lung Qualified Code(s): J15.1 - Pneumonia due to Pseudomonas (5) HTN (hypertension) Qualifiers: Hypertension type: essential hypertension Qualified Code(s): I10 - Essential (primary) hypertension (7) Chronic respiratory failure Qualifiers: Respiratory failure complication: hypoxia Qualified Code(s): J96.11 - Chronic respiratory failure with hypoxia
[2018-04-19] MEDS: predniSONE 20 MG TABLET PO SCH (13:58)
[2018-04-19] MEDS: traZODone 50 MG TABLET PO SCH (20:46)
[2018-04-20] MEDS: *HR* Heparin 5,000 UNIT/ML VIAL SQ SCH ×4 (00:26→23:39)
[2018-04-20] MEDS ORDERED: 0.9 % Sodium Chloride 1,000 ML IVC SCH (04:00)
[2018-04-20] MEDS: Cefepime HCl 2,000 MG in Water for inj. (sterile) 20 ML 20 ML IVP SCH ×3 (04:09→19:55)
[2018-04-20] MEDS: Ipratropium/Albuterol Neb 3 ML IH SCH ×5 (05:42→19:21)
[2018-04-20 05:46] LABS: Basophils # 0.1 K/mcL (0.0-0.2); Basophils % 0.8 %; Hematocrit 40.5 % (37.5-50.1); Hemoglobin 13.8 g/dL (12.9-16.9); Immature Granulocytes % 0.6 % (0-4); Lymphocytes # 1.2 K/mcL (0.6-4.6); Lymphocytes % 18.5 %; Mean Corpuscular HGB Conc 34.1 g/dL (31.6-35.5); Mean Corpuscular Hemoglobin 31.8 pg (28.0-33.3); Mean Corpuscular Volume 93.3 fL (83.0-100.0); Mean Platelet Volume 9.6 fL (9.4-12.4); Monocytes # 0.9 K/mcL (0.0-1.3); Monocytes % 14.7 %; Neutrophils # 4.1 K/mcL (1.6-8.9); Platelet Count 191 K/mcL (140-400); Red Blood Count 4.34 M/mcL (4.19-5.50); Red Cell Distribution Width 12.7 % (11.5-14.5); Segmented Neutrophils % 65.4 %
[2018-04-20 06:03] LABS: BUN/Creatinine Ratio 12 (6-26); Blood Urea Nitrogen 13 mg/dL (8-23); Calcium 9.6 mg/dL (8.6-10.3); Carbon Dioxide 24 mEq/L (23-29); Chloride 101 mEq/L (98-107); Glucose 122 mg/dL (70-105); Osmolality,Calculated 279 (280-300); Potassium 3.9 mEq/L (3.5-5.1); Sodium 134 mEq/L (136-145); eGFR For Non-African Americans > 60 (> 60)
[2018-04-20 06:20] LABS: Platelet Estimate Normal (Normal); Reactive Lymphocytes Present (Not Present)
[2018-04-20] MEDS: Doxycycline 100 MG in 0.9 % Sodium Chloride Mini Bag 100 ML IVPB SCH (09:05)
[2018-04-20] MEDS: Famotidine 20 MG TABLET PO SCH ×2 (09:11→16:13)
[2018-04-20] MEDS: predniSONE 20 MG TABLET PO SCH (09:11)
[2018-04-20] MEDS: Doxycycline 100 MG CAPSULE PO SCH ×2 (09:11→21:13)
[2018-04-20] MEDS: OLMESARTAN PO SCH (09:12)
[2018-04-20] MEDS: HCTZ PO SCH (09:12)
[2018-04-20] MEDS: GuaiFENesin/Pseudophedrine TABLET PO SCH ×2 (09:12→21:13)
--- NOTE | 2018-04-20 10:48 | Pulmonology Progress Note ---
Date of Encounter: 04/20/18 Time of Encounter: 10:48 Assessment and Plan (1) Acute respiratory failure with hypoxia Current Visit: Yes Status: Acute (2) Pneumonia Current Visit: Yes Status: Acute Qualifiers: Pneumonia type: due to Pseudomonas Laterality: left Lung location: lower lobe of lung Qualified Code(s): J15.1 - Pneumonia due to Pseudomonas (3) COPD with acute exacerbation Current Visit: No Status: Acute (4) Immunocompromised Current Visit: Yes Status: Chronic (5) Psoriatic arthritis Current Visit: No Status: Chronic Objective PUL Vital signs: Last Vital Signs Temp 97.8 F 04/20/18 09:10 Pulse 100 04/20/18 09:10 Resp 20 04/20/18 09:10 BP 130/62 04/20/18 09:10 Pulse Ox 91 04/20/18 09:10 Results - Laboratory Findings CBC and BMP: 04/20/18 04:59 04/20/18 04:59 PT/INR, D-dimer PT 13.0 Seconds (9.4-12.1) H 04/18/18 17:55 Abnormal lab findings: Abnormal lab results Reactive Lymphocytes Present (Not Present) A 04/20/18 04:59 Anisocytosis 1+ (Not Present) A 04/19/18 03:11 PT 13.0 Seconds (9.4-12.1) H 04/18/18 17:55 Sodium 134 mEq/L (136-145) L 04/20/18 04:59 Glucose 122 mg/dL (70-105) H 04/20/18 04:59 POC Glucose 100 mg/dL (70-99) H 04/19/18 05:44 Calculated Osmolality 279 (280-300) L 04/20/18 04:59 Serum Total Protein 5.9 g/dL (6.4-8.9) L 04/19/18 03:11 Globulin 2.3 g/dL (2.4-3.5) L 04/19/18 03:11 Vancomycin Trough 15 mcg/mL (5-10) H 04/20/18 04:59 - Microbiology Findings Microbiology Findings: Microbiology, Last 48 Hours 04/19/18 12:37 Cryptococcal Antigen - Final Serum - Clinical Findings Intake & Output: Intake & Output 04/19/18 04/20/18 04/20/18 23:59 07:59 15:59 Intake Total 1472 / 1472 118 / 118 817.2 / 817.2 Output Total 1125 / 1125 0 / 0 Balance 347 / 347 118 / 118 817.2 / 817.2 Weight 81 kg Consult Discharge Plan - Plan Referrals: NONE,PCP [Primary Care Provider] -
--- NOTE | 2018-04-20 12:15 | Internal Med Progress Note ---
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 He had completed a 10 day course of IV cefepime, however he felt that he was not getting better. Within the past 2 days he has experienced fever (102.2), malaise, and worsening cough with sputum production. He gets SOB with minimal exertion and his O2 sats were dropping in the low 80s, which is why he came to the ED. On presentation he was febrile at 100.3, tachypneic at 26, HR 99, 86% on RA. Mr. Ocampo states that he feels about the same today. He continues to be SOB on minimal exertion and continues to have a non-productive cough. He is currently 92% on 3L NC. Patient denies chest pain, nausea, vomiting, abd pain, dysuria, hematuria. - Exam Vitals: Temp Pulse Resp BP Pulse Ox 97.8 F 90 20 123/73 92 04/20/18 12:07 04/20/18 12:07 04/20/18 12:07 04/20/18 12:07 04/20/18 12:07 Exam: Gen: NAD. Lying comfortably in bed. HEENT: Normocephalic, atraumatic Cardiac: RRR, no murmur, normal S1/S2 Pulmonary: 92% on 3L NC, decreased breath sounds in the bases bilaterally Abdomen: soft, nontender, no guarding Extremities: no BLE edema, nontender calf, no cyanosis or clubbing Neuro: moves all extremities, no focal deficits. A&Ox3. Psych: Appropriate mood and behavior - Assessment and Plan (1) Sepsis Current Visit: Yes Status: Resolved Assessment and Plan: Resolved. Likely secondary to pneumonia Presented with fever 100.3, HR 99, RR 26 Afebrile today RR 16-20 today 92% on 3L NC WBC 5.8 on admission, 6.3 today Resp panel negative Strep pneumo, legionella, cryptococcal antigens negative Blood cultures pending NGTD Sputum culture pending Continue Cefepime, Vanc, Doxy day 3 Pulm following - sputum cx, resp panel, MRSA screen pending ID following - continue abx (2) Acute and chronic respiratory failure Current Visit: Yes Status: Resolved Assessment and Plan: Likely secondary to PNA and COPD exacerbation 92% on 3L NC Crackles noted bilaterally in the bases, no wheezing noted Continue supplemental O2 Continue bronchodilators Encourage incentive spirometry (3) Pneumonia Current Visit: Yes Status: Acute Assessment and Plan: Possibly persistent psuedomonas versus new pneumonia (viral, fungal), immune compromised d/t Enbrel and Methotrexate Patient presented with worsening SOB, productive cough, fever, met SIRS criteria No leukocytosis 92% on 3L NC WBC 5.8 on admission, 6.3 today MRSA negative Resp panel negative Strep pneumo, legionella, cryptococcal antigens negative Blood cultures pending NGTD Sputum culture pending Repeat CT 04/19 - Interval resolution of previously described LLL PNA Continue Cefepime, Vanc, Doxy day 3 per ID recs Continue scheduled bronchodilators ID following, appreciate recommendations Pulm following, appreciate recommendations (4) COPD with acute exacerbation Current Visit: Yes Status: Acute Assessment and Plan: Possibly secondary to PNA 92% on 3L NC Continue abx Continue scheduled bronchodilators Continue Prednisone 40 QD x 5d per pulm recs (5) Psoriatic arthritis Current Visit: Yes Status: Chronic Assessment and Plan: Chronic, not in acute exacerbation Immunocompromised d/t home medications Continue to hold Enbrel and Methotrexate d/t acute illness Tylenol and Toradol PRN pain (6) HTN (hypertension) Current Visit: Yes Status: Chronic Assessment and Plan: Chronic, stable Continue home meds (7) GERD (gastroesophageal reflux disease) Current Visit: Yes Status: Chronic Assessment and Plan: Continue Pepcid 20 BID DVT Prophylaxis: SQ Heparin - Time Spent with Patient Total time spent is greater than 50% in coordination of care (as documented) at patient's floor/unit and/or counseling patient: Internal Medicine: Result - Labs CBC & Chem 7: 04/20/18 04:59 04/20/18 04:59 Labs: Short CBC 04/20/18 Range/Units 04:59 WBC 6.3 (4.3-11.1) K/mcL Hgb 13.8 (12.9-16.9) g/dL Hct 40.5 (37.5-50.1) % Plt Count 191 (140-400) K/mcL Neutrophils # 4.1 (1.6-8.9) K/mcL BMP 04/20/18 04:59 Sodium 134 L Potassium 3.9 Chloride 101 Carbon Dioxide 24 BUN 13 Creatinine 1.11 Glucose 122 H Calcium 9.6 - ABG Interpretation ABG results: PT/INR, D-dimer PT 13.0 Seconds (9.4-12.1) H 04/18/18 17:55 - Impressions Impressions Chest CT 04/19/18 06:43 IMPRESSION: 1. Interval resolution of the previously described left lower lobe pneumonia. 2. No acute cardiopulmonary process identified. D/ / 04/19/2018 11:52:00 Fidencio Romero MD / prashanth Interpreting Provider: Fidencio Romero MD Consult Discharge Plan - Plan Referrals: NONE,PCP [Primary Care Provider] - <Miah Freitas - Last Filed: 04/20/18 16:36> Hospitalist Progress Note - Encounter Date of Encounter: 04/20/18 - Exam Vitals: Temp Pulse Resp BP Pulse Ox 97.8 F 90 16 123/73 93 04/20/18 12:07 04/20/18 12:07 04/20/18 15:01 04/20/18 12:07 04/20/18 15:01 - Assessment and Plan (1) Conjunctivitis Current Visit: Yes Status: Acute (2) Sepsis Current Visit: Yes Status: Resolved (3) Pneumonia Current Visit: Yes Status: Suspected (4) Psoriatic arthritis Current Visit: Yes Status: Chronic (5) Immunocompromised Current Visit: Yes Status: Chronic (6) HTN (hypertension) Current Visit: Yes Status: Chronic (7) DVT prophylaxis Current Visit: No Status: Acute (8) Chronic respiratory failure Current Visit: Yes Status: Acute - Time Spent with Patient Total time spent is greater than 50% in coordination of care (as documented) at patient's floor/unit and/or counseling patient: Internal Medicine: Result - Labs CBC & Chem 7: 04/20/18 04:59 04/20/18 04:59 Labs: Short CBC 04/20/18 Range/Units 04:59 WBC 6.3 (4.3-11.1) K/mcL Hgb 13.8 (12.9-16.9) g/dL Hct 40.5 (37.5-50.1) % Plt Count 191 (140-400) K/mcL Neutrophils # 4.1 (1.6-8.9) K/mcL BMP 04/20/18 04:59 Sodium 134 L Potassium 3.9 Chloride 101 Carbon Dioxide 24 BUN 13 Creatinine 1.11 Glucose 122 H Calcium 9.6 - ABG Interpretation ABG results: PT/INR, D-dimer PT 13.0 Seconds (9.4-12.1) H 04/18/18 17:55 - Attending Attestation I examined this patient and my medical decision-making was reviewed with the Resident Physician on 04/20/18. I agree with the documented findings, disposition and treatment plan as described except to the extent set forth below. Terrence is currently admitted for pneumonia. He remains moderate to high risk due to potential for worsening clinical status. Dr. Ocampo is doing OK. Still coughing. No CP. No GI issues. L eye is red and matted today. Exam alert Comfortable Moist cough L eye red Not tachycardic No edema I/P 1. Pneumonia 2. L conjunctivitis - add Gent drops Further diagnoses and plan as above. <Wanda Duggan - Last Filed: 04/20/18 14:03> (1) Sepsis Qualifiers: Sepsis type: sepsis due to unspecified organism Qualified Code(s): A41.9 - Sepsis, unspecified organism (2) Acute and chronic respiratory failure Qualifiers: Respiratory failure complication: hypoxia Qualified Code(s): J96.21 - Acute and chronic respiratory failure with hypoxia (3) Pneumonia Qualifiers: Pneumonia type: due to unspecified organism Laterality: unspecified laterality Lung location: unspecified part of lung Qualified Code(s): J18.9 - Pneumonia, unspecified organism (6) HTN (hypertension) Qualifiers: Hypertension type: essential hypertension Qualified Code(s): I10 - Essential (primary) hypertension (7) GERD (gastroesophageal reflux disease) Qualifiers: Esophagitis presence: esophagitis presence not specified Qualified Code(s): K21.9 - Gastro-esophageal reflux disease without esophagitis <Miah Freitas - Last Filed: 04/20/18 16:36> (1) Conjunctivitis Qualifiers: Conjunctivitis type: acute Acute conjunctivitis type: bacterial Laterality: left Qualified Code(s): H10.32 - Unspecified acute conjunctivitis, left eye (2) Sepsis Qualifiers: Sepsis type: sepsis due to unspecified organism Qualified Code(s): A41.9 - Sepsis, unspecified organism (3) Pneumonia Qualifiers: Pneumonia type: due to Pseudomonas Laterality: unspecified laterality Lung location: unspecified part of lung Qualified Code(s): J15.1 - Pneumonia due to Pseudomonas (6) HTN (hypertension) Qualifiers: Hypertension type: essential hypertension Qualified Code(s): I10 - Essential (primary) hypertension (8) Chronic respiratory failure Qualifiers: Respiratory failure complication: hypoxia Qualified Code(s): J96.11 - Chronic respiratory failure with hypoxia
[2018-04-20] MEDS: Gentamicin OPTH Soln 5 ML BOTTLE LEFT EYE SCH ×2 (17:59→21:13)
[2018-04-20] MEDS: traZODone 50 MG TABLET PO SCH (21:13)
[2018-04-21] MEDS: Ipratropium/Albuterol Neb 3 ML IH SCH ×4 (00:26→11:00)
[2018-04-21] MEDS: Cefepime HCl 2,000 MG in Water for inj. (sterile) 20 ML 20 ML IVP SCH ×2 (03:51→12:56)
[2018-04-21] MEDS: *HR* Heparin 5,000 UNIT/ML VIAL SQ SCH (08:02)
[2018-04-21] MEDS: Gentamicin OPTH Soln 5 ML BOTTLE LEFT EYE SCH ×2 (08:16→12:57)
[2018-04-21] MEDS: GuaiFENesin/Pseudophedrine TABLET PO SCH (09:32)
[2018-04-21] MEDS: predniSONE 20 MG TABLET PO SCH (09:32)
[2018-04-21] MEDS: Famotidine 20 MG TABLET PO SCH (09:32)
[2018-04-21] MEDS: Doxycycline 100 MG CAPSULE PO SCH (09:32)
--- NOTE | 2018-04-21 09:54 | Pulmonology Progress Note ---
Date of Encounter: 04/21/18 Time of Encounter: 08:00 Assessment and Plan (1) COPD with acute exacerbation Current Visit: Yes Status: Suspected I have explained to patient about bronchoscopy and we both felt since CAT scan has evidence of improvement. He has no pneumonia and most likely this is as COPD exacerbation and he is on appropriate treatment. Discussed with primary team from pulmonary standpoint patient can be discharged home on taper steroid and empiric antibiotics if infectious disease team feels necessary otherwise on a short course is recommended. 6 minute walk before discharge is recommended. Patient can follow-up as outpatient. (2) Acute respiratory failure with hypoxia Current Visit: Yes Status: Acute Overall there is improvement and wean off FiO2 to keep SPO2 around 90%. 6 minute walk before discharge home. Subjective Principal diagnosis: Hypoxic respiratory failure Interval history: Patient is feeling better today and he still requiring oxygen and denies any worsening of symptoms. Objective PUL Vital signs: Last Vital Signs Temp 98.7 F 04/21/18 06:56 Pulse 76 04/21/18 06:56 Resp 16 04/21/18 07:41 BP 132/76 04/21/18 06:56 Pulse Ox 94 04/21/18 07:41 General: Patient is in no acute distress. HEENT: Normocephalic atraumatic, pupils are equal round and reactive to light and accommodation, anicteric sclera, nares is patent, mucous membranes moist, no JVD, trachea is midline Cardiovascular: Normal sinus rhythm, S1 and S2 audible, no murmur or rubs Respiratory: Clear to auscultation bilaterally. No acute distress. No wheezing. Patient not using accessory muscles. Abdomen: Soft, nontender, nondistended, positive bowel sounds in all 4 quadrants Extremities: Warm, dry, no lower extremity edema. Normal capillary refill. Neuro: Alert and oriented and follows commands. Grossly no neuro deficits. Skin: Warm to touch : No obvious abnormalities. Psych: Normal Results - Laboratory Findings CBC and BMP: 04/20/18 04:59 04/20/18 04:59 PT/INR, D-dimer PT 13.0 Seconds (9.4-12.1) H 04/18/18 17:55 Abnormal lab findings: Abnormal lab results Reactive Lymphocytes Present (Not Present) A 04/20/18 04:59 Anisocytosis 1+ (Not Present) A 04/19/18 03:11 PT 13.0 Seconds (9.4-12.1) H 04/18/18 17:55 Sodium 134 mEq/L (136-145) L 04/20/18 04:59 Glucose 122 mg/dL (70-105) H 04/20/18 04:59 POC Glucose 100 mg/dL (70-99) H 04/19/18 05:44 Calculated Osmolality 279 (280-300) L 04/20/18 04:59 Serum Total Protein 5.9 g/dL (6.4-8.9) L 04/19/18 03:11 Globulin 2.3 g/dL (2.4-3.5) L 04/19/18 03:11 Vancomycin Trough 15 mcg/mL (5-10) H 04/20/18 04:59 - Microbiology Findings Microbiology Findings: Microbiology, Last 48 Hours 04/19/18 12:37 Cryptococcal Antigen - Final Serum - Diagnostic Findings CT scan - chest: report reviewed, image reviewed - Clinical Findings Intake & Output: Intake & Output 04/20/18 04/21/18 04/21/18 23:59 07:59 15:59 Intake Total 878 / 878 0 / 0 0 / 0 Output Total 1350 / 1350 950 / 950 Balance -472 / -472 -950 / -950 0 / 0 Consult Discharge Plan - Plan Referrals: NONE,PCP [Primary Care Provider] -
[2018-04-21] MEDS: OLMESARTAN PO SCH (10:13)
[2018-04-21] MEDS: HCTZ PO SCH (10:13)
[2018-04-21 10:41] VITALS: BP 121/74
--- NOTE | 2018-04-21 11:27 | Discharge Summary ---
<Wnada Duggan - Last Filed: 04/21/18 12:35> - NOTES TO OUTPATIENT PROVIDER Notes to Outpatient Provider: Recommend outpatient follow up with pulmonology within 1 month. Follow up with PCP within 1 week. Orders not resulted at time of discharge: Pending orders 04/18/18 16:17 Sputum Culture [Culture,Sputum with Gram Stain] [RM] Routine 04/19/18 12:37 Aspergillus galactomannan Ag Routine Fungitell (1,3)-uscu-Y-Njsxan Routine Histoplasma Antigen Routine 04/19/18 14:26 Histoplasma galactomannan,Ur Routine Date of Encounter: 04/21/18 Time of Encounter: 09:57 - Discharge Diagnosis (1) Sepsis Priority: Primary Status: Resolved Qualifiers: Sepsis type: sepsis due to unspecified organism Qualified Code(s): A41.9 - Sepsis, unspecified organism (2) Acute and chronic respiratory failure Priority: Primary Status: Resolved Qualifiers: Respiratory failure complication: hypoxia Qualified Code(s): J96.21 - Acute and chronic respiratory failure with hypoxia (3) Pneumonia Priority: Primary Status: Resolved Qualifiers: Pneumonia type: due to Pseudomonas Laterality: unspecified laterality Lung location: unspecified part of lung Qualified Code(s): J15.1 - Pneumonia due to Pseudomonas (4) COPD with acute exacerbation Priority: Primary Status: Acute (5) Psoriatic arthritis Priority: Secondary Status: Chronic (6) HTN (hypertension) Priority: Secondary Status: Chronic Qualifiers: Hypertension type: essential hypertension Qualified Code(s): I10 - Essential (primary) hypertension (7) GERD (gastroesophageal reflux disease) Priority: Secondary Status: Chronic Qualifiers: Esophagitis presence: esophagitis presence not specified Qualified Code(s) : K21.9 - Gastro-esophageal reflux disease without esophagitis Hospital course: Dr. Aj Ocampo is a 63 year old gentleman with a history of psoriatic arthritis on Embrel and Methotrexate, COPD on CPAP and 3L supplemental O2 at night, GERD, and HTN with recent hospitalization 3 weeks ago for psuedomonas pneumonia. He had completed a 10 day course of IV cefepime, however he felt that he was not getting better. 2 days prior to admission he experienced a fever (102.2), malaise, and worsening cough with sputum production. He reported shortness of breath with minimal exertion and his O2 levels were dropping in the low 80s, which is why he came to the ED. On presentation he was febrile at 100.3, tachypneic at 26, HR 99, 86% on RA. Infectious disease was consulted in the ER and recommended Cefepime, Vancomycin, and Doxycycline which he received for [address] chest was ordered at the recommendation of Pulmonology and showed resolution of his previous pneumonia and it was determined that he was likely experiencing a COPD exacerbation with bronchospasm, and a bronchoscopy was not indicated. Respiratory panel and nasal MRSA swab were negative. Legionella, Step Pneumo, and Cryptococcal antigens were negative. Sputum sample was unable to be obtained durign admission. Blood cultures showed no growth to date. Pulmonology recommended a steroid taper, empiric antibiotics if ID felt it was necessary and a 6 minute walk test. Infectious disease recommended a 10 day course of Augmentin and Doxycycline empirically. The 6 minute walk test did not demonstrate additional oxygen requirements. The patient has been afebrile for approximately 48 hours and is being discharged in stable condition. Recommend follow up with Pulmonology within 1 month. Discharge discussed with: patient - Time Spent with Patient Total time spent providing and/or coordinating discharge services: Greater than 30 minutes - Discharge Medications Prescriptions: Amoxicillin/Clavulanate [Augmentin] 875 mg PO BIDWM #20 tablet Doxycycline Hyclate 100 mg PO BID #20 tablet predniSONE [PredniSONE] See Taper PO DAILY 12 Days #30 tablet Home Medications: Acetylcysteine [M-Tdeuwl-j-Cysteine] 600 mg PO BID 03/25/18 [History] Albuterol Sulfate [Ventolin Hfa] 2 puff IH Q4-6H PRN 03/25/18 [History] Etanercept [Enbrel] 50 mg SQ PALMER 03/25/18 [History] Folic Acid 1 mg PO DAILY 03/25/18 [History] Methotrexate [Otrexup] 15 mg PO PALMER 03/25/18 [History] Montelukast [Singulair] 10 mg PO DAILY 03/25/18 [History] Olmesartan/Hydrochlorothiazide [Olmesartan-Hctz 40-25 mg Tab] 1 tab PO DAILY [History] Tiotropium [place] [Spiriva Respimat] 1 puff IH DAILY 03/25/18 [History] Trazodone HCl 100 mg PO HS PRN 03/25/18 [History] raNITIdine HCl [Zantac] 150 mg PO BID 03/25/18 [History] Lactobacillus Acidophilus [Acidophilus Probiotic] 1 mg PO BID #30 tablet [Rx] Amoxicillin/Clavulanate [Augmentin] 875 mg PO BIDWM #20 tablet 04/21/18 [Rx] Doxycycline Hyclate 100 mg PO BID #20 tablet 04/21/18 [Rx] predniSONE [PredniSONE] See Taper PO DAILY 12 Days #30 tablet 04/21/18 [Rx] Allergies/Adverse Reactions: 3 Allergy/AdvReac Type Severity Reaction Status Date / Time azithromycin [From Zithromax] Allergy Hives Verified 03/25/18 09:13 levofloxacin [From Levaquin] Allergy Difficulty Verified 03/25/18 09:13 Breathing Date of admission: 04/18/18 19:56 Primary care physician: PCP NONE Consults: 04/18/18 19:57 Consult to Infectious Diseases [CONS] Routine Consulting Provider: Infectious Disease Diana Reason for Consult: Hx of pseudomonal pna 3wks ago, recurrent symptoms. Rafa was consulted from the ED Call Completed: Yes 04/21/18 08:11 Consult to Pulmonology [CONS] Routine Consulting Provider: Pulm Crit Care & Sleep Diana Reason for Consult: hx of recent psuedomonas PNA, worsened SOB Call Completed: Yes - Constitutional Vitals: Temp Pulse Resp BP Pulse Ox 98.1 F 91 16 121/74 93 04/21/18 10:38 04/21/18 10:38 04/21/18 10:38 04/21/18 10:38 04/21/18 10:58 Exam: Gen: NAD. Sitting comoftably in the chair. HEENT: Normocephalic, atraumatic Cardiac: RRR, no murmur, normal S1/S2 Pulmonary: 90% on 3L NC, decreased breath sounds in the bases bilaterally Abdomen: soft, nontender, no guarding Extremities: no BLE edema, nontender calf, no cyanosis or clubbing Neuro: moves all extremities, no focal deficits. A&Ox3. Psych: Appropriate mood and behavior - Patient Status Disposition: Home, Self-Care Condition: Fair Functional capacity at discharge: independent ambulation Overall status at discharge: patient is progressing back to baseline - Discharge Instructions Instructions: Acute Respiratory Distress Syndrome (DC), Chronic Obstructive Pulmonary Disease (DC), Sepsis (DC), Chronic Hypertension (DC), Pneumonia (DC) Follow Up With: Genesis Esquivel MD [Partnered Physician] - 06/05/18 8:45 am NONE,PCP [Primary Care Provider] - (Spoke with patient he wants to find his own PCP. ) - Diet and Activity Activity: increase activity as tolerated Diet: regular diet <Miah Freitas - Last Filed: 04/21/18 15:08> Orders not resulted at time of discharge: Pending orders 04/19/18 12:37 Aspergillus galactomannan Ag Routine Fungitell (1,3)-ivjc-B-Mghwdd Routine Histoplasma Antigen Routine 04/19/18 14:26 Histoplasma galactomannan,Ur Routine 04/21/18 13:41 Cryptococcal Antigen [MYC] Stat Date of Encounter: 04/21/18 - Discharge Diagnosis (1) Conjunctivitis Priority: Secondary Status: Acute Qualifiers: Conjunctivitis type: acute Acute conjunctivitis type: bacterial Laterality: left Qualified Code(s): H10.32 - Unspecified acute conjunctivitis , left eye (2) Sepsis Status: Resolved Qualifiers: Sepsis type: sepsis due to unspecified organism Qualified Code(s): A41.9 - Sepsis, unspecified organism (3) Pneumonia Status: Resolved Qualifiers: Pneumonia type: due to Pseudomonas Laterality: unspecified laterality Lung location: unspecified part of lung Qualified Code(s): J15.1 - Pneumonia due to Pseudomonas (4) Psoriatic arthritis Status: Chronic (5) Immunocompromised Priority: Secondary Status: Chronic (6) HTN (hypertension) Status: Chronic Qualifiers: Hypertension type: essential hypertension Qualified Code(s): I10 - Essential (primary) hypertension (7) Chronic respiratory failure Priority: Secondary Status: Chronic Qualifiers: Respiratory failure complication: hypoxia Qualified Code(s): J96.11 - Chronic respiratory failure with hypoxia Hospital course: Mr. Ocampo is a 63 year old male - Time Spent with Patient Total time spent providing and/or coordinating discharge services: 28min Date of admission: 04/18/18 19:56 Primary care physician: PCP NONE Consults: 04/18/18 19:57 Consult to Infectious Diseases [CONS] Routine Consulting Provider: Infectious Disease Diana Reason for Consult: Hx of pseudomonal pna 3wks ago, recurrent symptoms. Rafa was consulted from the ED Call Completed: Yes 04/21/18 08:11 Consult to Pulmonology [CONS] Routine Consulting Provider: Pulm Crit Care & Sleep Diana Reason for Consult: hx of recent psuedomonas PNA, worsened SOB Call Completed: Yes - Constitutional Vitals: Temp Pulse Resp BP Pulse Ox 98.1 F 91 16 121/74 94 04/21/18 10:38 04/21/18 10:38 04/21/18 11:00 04/21/18 10:38 04/21/18 11:00 - Attending Attestation I examined this patient and my medical decision-making was reviewed with the Resident Physician on 04/21/18. I agree with the documented findings, disposition and treatment plan as described except to the extent set forth below. 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 It was felt to be COPD exac and he was placed on steroids and abx to go home. CT repeat was improved. He is to follow up with ID and pulm Currently he is afebrile and ready for discharge Exam alert Pleasant Mucus membranes dry Heart not tachy No wheeze abd nontender No edema Plan D/C home today 10 days of Augmentin and Doxy Steroid taper.
--- NOTE | 2018-04-21 12:05 | Infectious Disease Consult ---
Date of Encounter: 04/21/18 Time of Encounter: 12:01 Assessment and Plan (1) Acute respiratory failure with hypoxia Status: Acute Assessment and plan: Etiology not clear Likely secondary to acute exacerbation of COPD CT not suggestive of pneumonia (2) COPD with acute exacerbation Status: Acute Assessment and plan: CT chest reveals resolution of pneumonia Respiratory infectious panel did not berry picker any viruses organism Sputum culture not obtained due to contamination with epithelial cells Improved on broad-spectrum antibiotics Recommend switching the patient to oral doxycycline and Augmentin to finish a 14 day course We will check fungal serologies since the patient is immune is compromise even though the CT is not very suggestive Because of his autoimmune diseases and eosinophilic esophagitis in the past if patient continues to have symptoms we will discuss with pulmonary to see if this could be a noninfectious cause of his symptoms. (3) Immunocompromised Status: Chronic Assessment and plan: Patient with history of psoriatic arthritis Currently on Enbrel and methotrexate (4) Psoriatic arthritis Status: Chronic (5) Sepsis Status: Resolved Assessment and plan: Patient had 3 SIRS criteria on admission including fever, tachycardia and tachypnea Secondary to acute exacerbation of COPD Qualifiers: Sepsis type: sepsis due to unspecified organism Qualified Code(s): A41.9 - Sepsis, unspecified organism (6) Allergy to multiple antibiotics Status: Acute Assessment and plan: Allergic to azithromycin and levofloxacin. Gets angioedema. (7) Immunocompromised Status: Acute Infectious Disease HPI - Data of Consult Patient: known to practice within the last 3 years Consult date: 04/21/18 Requesting Physician: Miah Freitas DO Primary Care Provider: PCP NONE - Consult Narrative Reason for consult: shotness of breath/pneumonia History of present illness: Mr. Ocampo is a 63 year old male Patient is a 63-year-old gentleman who is well-known to my service was seen by me previously for pneumonia with pseudomonas aeruginosa that was pansensitive. Patient is allergic to fluoroquinolones so was treated with cefepime for 2 weeks. Patient clinically did water better slightly and then started having shortness of breath again. Patient came back to the ED for evaluation. Keep in mind that the patient is immunosuppressed he is on Enbrel and methotrexate for psoriatic arthritis. Patient also had a history of eosinophilic esophagitis. I did discuss the case at length and went over the CT scan with Dr. azul. At this point patient does not appear to have any bacterial infection in the CT looks better and clinically looks okay clearly he was febrile. Since admission, patient has been febrile with MAXIMUM TEMPERATURE of 100.8 Fahrenheit. Patient has also been tachycardic. On admission patient was also tachypneic. Presenting labs revealed a WBC of 5.8 thousand with 17% lymphocytes 17% monocytes and 59% neutrophils. Chemistry was reviewed and kidney function is fine. Lactic acid was within normal limit. A MRSA screen was obtained and came back negative. Patient had a restaurant infectious panel done and it did not detect any viruses or organisms. Urine legionella and pneumococcal antigen were both negative. Sputum culture was not done because of contamination with epithelial cells. Blood cultures 2 were obtained and are no growth to date. Imaging revealed interval resolution of previously described left lower lobe pneumonia. No acute cardio pulmonary process identified. Patient was evaluated by pulmonary and they believe that this is COPD with acute exacerbation.. They did not feel the need for bronchoscopy. Patient was recommended to be discharged on empiric antibiotics and tapering steroids. CC: Miah Freitas, DO Past Med Surg Social Fam HX - Past Medical History Medical history: arthritis, asthma, COPD, GERD, hypertension Psychiatric history: no psych history - Past Surgical History Surgical History: no surgical history Additional surgical history: miniscus right knee, hernia repair - Social History Smoking Status: Former smoker Smokeless Tobacco Status: No Alcohol use: rarely Drug use: none - Family History Mother Family Member Ethnicity: Non- Living Status: Hx Family Cardiac Disorders: Yes (HTN, A-FIB) Hx Family Respiratory Disorders: No Hx Family Cancer: Yes (melanoma) Hx Family GI Disorders: No Hx Family Endocrine Disorder: No Hx Family Neuromuscular Disorders: No Hx Family Neurologic Disorders: Yes (DEMENTIA) Hx Family HEENT Disorders: No Hx Family Autoimmune Disorders: No Infectious Disease-CN:Meds Acetylcysteine [K-Mhfopq-r-Cysteine] 600 mg PO BID 03/25/18 [History] Albuterol Sulfate [Ventolin Hfa] 2 puff IH Q4-6H PRN 03/25/18 [History] Etanercept [Enbrel] 50 mg SQ PALMER 03/25/18 [History] Folic Acid 1 mg PO DAILY 03/25/18 [History] Methotrexate [Otrexup] 15 mg PO PALMER 03/25/18 [History] Montelukast [Singulair] 10 mg PO DAILY 03/25/18 [History] Olmesartan/Hydrochlorothiazide [Olmesartan-Hctz 40-25 mg Tab] 1 tab PO DAILY [History] Tiotropium [place] [Spiriva Respimat] 1 puff IH DAILY 03/25/18 [History] Trazodone HCl 100 mg PO HS PRN 03/25/18 [History] raNITIdine HCl [Zantac] 150 mg PO BID 03/25/18 [History] Lactobacillus Acidophilus [Acidophilus Probiotic] 1 mg PO BID #30 tablet [Rx] Amoxicillin/Clavulanate [Augmentin] 875 mg PO BIDWM #20 tablet 04/21/18 [Rx] Doxycycline Hyclate 100 mg PO BID #20 tablet 04/21/18 [Rx] Gentamicin OPTH Soln 1 drop LEFT EYE QID 5 Days #1 bottle 04/21/18 [Rx] predniSONE [PredniSONE] See Taper PO DAILY 12 Days #30 tablet 04/21/18 [Rx] 3 Allergy/AdvReac Type Severity Reaction Status Date / Time azithromycin [From Zithromax] Allergy Hives Verified 03/25/18 09:13 levofloxacin [From Levaquin] Allergy Difficulty Verified 03/25/18 09:13 Breathing Review of systems: 10 point review of systems done, negative other for what mentioned in history of present illness Exam - Constitutional Vitals: Temp Pulse Resp BP Pulse Ox 98.1 F 91 16 121/74 94 04/21/18 10:38 04/21/18 10:38 04/21/18 11:00 04/21/18 10:38 04/21/18 11:00 General appearance: cooperative, no acute distress, no febrile - Head Head exam: Present: atraumatic, normocephalic - Eye Eye exam: Present: EOMI, PERRL, sclera anicteric - ENT ENT exam: Present: mucous membranes moist Additional comments: No oral thrush - Neck Neck exam: Present: full ROM, normal inspection - Respiratory Additional comments: Chest expanding symmetrically. Breath sounds audible universally but are diminished. Some expiratory wheezing. No rhonchi or rales. - Cardiovascular Cardiovascular exam: Present: RRR, +S1, +S2 - GI/Abdominal GI/Abdominal exam: Present: normal bowel sounds, soft. Absent: tenderness - Extremities Exam Extremities exam: Present: full ROM, normal inspection - Neurological Exam Neurological exam: Present: alert, oriented X3 - Skin Skin exam: Present: normal color. Absent: rash Infectious Disease CN: Results - Labs CBC & Chem 7: 04/20/18 04:59 04/20/18 04:59 Cultures: Cultures 04/19/18 12:37 Cryptococcal Antigen - Final Serum Serology: Serology 04/19/18 04/19/18 Range/Units 10:37 09:04 Nasal Screen MRSA (PCR) Negative (Negative) Chlamy pneumoniae PCR Not Detected (Not Detect) Adenovirus (PCR) Not Detected (Not Detect) B. pertussis DNA (PCR) Not Detected (Not Detect) B.parapertussis DNA PCR Not Detected (Not Detect) Coronavirus OC43 (PCR) Not Detected (Not Detect) Coronavirus HKU1 (PCR) Not Detected (Not Detect) Coronavirus 229E (PCR) Not Detected (Not Detect) Coronavirus NL63 (PCR) Not Detected (Not Detect) Human Metapneumovir PCR Not Detected (Not Detect) Influenza A (H1) PCR Not Detected (Not Detect) Influ A (H1N1/09) PCR Not Detected (Not Detect) Influenza A (H3) PCR Not Detected (Not Detect) Influenza A Untype (PCR) Not Detected (Not Detect) Influenza Type B (PCR) Not Detected (Not Detect) M.pneumoniae DNA (PCR) Not Detected (Not Detect) Parainfluenza 1 (PCR) Not Detected (Not Detect) Parainfluenza 2 (PCR) Not Detected (Not Detect) Parainfluenza 3 (PCR) Not Detected (Not Detect) Parainfluenza 4 (PCR) Not Detected (Not Detect) RSV (PCR) Not Detected (Not Detect) Entero/Rhino (PCR) Not Detected (Not Detect) Consult Discharge Plan - Plan Instructions: Acute Respiratory Distress Syndrome (DC), Chronic Obstructive Pulmonary Disease (DC), Sepsis (DC), Chronic Hypertension (DC), Pneumonia (DC) Referrals: Genesis Esquivel MD [Partnered Physician] - 06/05/18 8:45 am NONE,PCP [Primary Care Provider] - (Spoke with patient he wants to find his own PCP. ) Prescriptions: Amoxicillin/Clavulanate [Augmentin] 875 mg PO BIDWM #20 tablet Doxycycline Hyclate 100 mg PO BID #20 tablet Gentamicin OPTH Soln 1 drop LEFT EYE QID 5 Days #1 bottle predniSONE [PredniSONE] See Taper PO DAILY 12 Days #30 tablet
--- NOTE | 2018-04-21 13:21 | Electrocardiograph Report ---
[place] [id number] Test Date: 2018-04-18 Pat Name: Aj Ocampo Department: [id number] Room: 3A53 Gender: M Ride Operator: : [id number] Requested By: Nicolas Tapia Order Number: [id number] Reading MD: Celine Navarro Measurements Intervals [place] Rate: 87 P: 23 NE: 139 QRS: 63 QRSD: 94 T: 45 QT: 366 QTc: 441 Interpretive Statements Sinus rhythm Borderline ST wave abnormalities Electronically Signed On 04-21-2018 13:20:24 EDT by Celine Navarro
[2018-04-21] MEDS ORDERED: Aminoglycoside Consult 1 EACH MC ONE (14:55)
[2018-04-22 15:43] LABS: A.galactomannan Ag Index 0.13
== END 2018-04-21 14:56 | disposition home or self-care (01) | DRG 871 ==
LOC: 3ANU 17:09 → EMEROOARM 17:09 → SUATTDRO 19:56 → 3ANU 20:44
PROVIDERS: ADMIT Internal Medicine; ATTEND Internal Medicine

== ENCOUNTER 2018-05-02 10:41 | Inpatient (IN) ==
--- NOTE | 2018-05-02 11:07 | Emergency Department Note ---
Disposition Clinical Impression: Recurrent pneumonia, Acute exacerbation of chronic obstructive airways disease Pulmonary embolism Qualifiers: Pulmonary embolism type: other Chronicity: acute Acute cor pulmonale presence: without acute cor pulmonale Qualified Code(s): I26.99 - Other pulmonary embolism without acute cor pulmonale Disposition: Admitted As Inpatient Condition: Good General Adult HPI - General Stated complaint: Respiratory distress/fever Time Seen by Provider: 05/02/18 10:44 Source: patient, family Limitations: no limitations Nursing Notes Reviewed: Yes Vital Signs Reviewed: Yes - History of Present Illness HPI Narrative: Patient is a 63-year-old male with history of psoriatic arthritis, COPD requiring CPAP at night who presents with complaints of fever to 101.4, productive cough, and shortness of breath worsening over the last few days. Patient was previously admitted 2 weeks prior for pneumonia and has previously been admitted for Pseudomonas pneumonia attributed with his history of Enbrel for psoriatic arthritis. He has been on a 2 week course of Augmentin, doxycycline, and prednisone taper which he is sent to complete. He otherwise admits left calf pain over the past few days which he treated to plantar fasciitis but has not improved. Denies any recent long travel but has been hospitalized multiple times over the last couple of months. Otherwise admits left shoulder pain without recent trauma. Denies chest pain, nausea, vomiting, diarrhea, abdominal pain. Pain Scale: 6 - Related Data Home Medications Medication Instructions Recorded Confirmed Albuterol Sulfate [Ventolin Hfa] 2 puff IH Q4-6H PRN 03/25/18 05/02/18 Etanercept [Enbrel] 50 mg SQ PALMER 03/25/18 05/02/18 Folic Acid 1 mg PO DAILY 03/25/18 05/02/18 Methotrexate [Otrexup] 15 mg PO PALMER 03/25/18 05/02/18 Montelukast [Singulair] 10 mg PO DAILY 03/25/18 05/02/18 Olmesartan/Hydrochlorothiazide 1 tab PO DAILY 03/25/18 05/02/18 [Olmesartan-Hctz 40-25 mg Tab] Tiotropium [place] [Spiriva 1 puff IH DAILY 03/25/18 05/02/18 Respimat] Trazodone HCl 100 mg PO HS PRN 03/25/18 05/02/18 raNITIdine HCl [Zantac] 150 mg PO BID 03/25/18 05/02/18 Allergies Allergy/AdvReac Type Severity Reaction Status Date / Time azithromycin [From Zithromax] Allergy Hives Verified 03/25/18 09:13 levofloxacin [From Levaquin] Allergy Difficulty Verified 03/25/18 09:13 Breathing Review of Systems: Pertinent positives and negatives reviewed in history of present illness. All other systems reviewed and are negative or normal. All systems ED: reviewed and negative except as stated. Review of Systems: As Per HPI Past Medical History - Past Medical History Medical history: Reports: arthritis (Psoriatic), asthma, COPD, GERD, hypertension Surgical history: Reports: no surgical history Psychiatric history: Reports: no psych history - Social History Smoking Status: Former smoker Smokeless Tobacco Status: No Alcohol use: Reports: rarely Drug use: Reports: none Physical Exam - General Limitations: no limitations General appearance: alert, in no apparent distress - Head Head exam: atraumatic, normocephalic - Eye Eye exam: Present: normal appearance - Neck Neck exam: Present: normal inspection, trachea midline - Chest Chest inspection: Present: normal inspection, symmetric chest wall rise - Respiratory Respiratory exam: Absent: respiratory distress, wheezes, stridor, accessory muscle use - Expanded Respiratory Exam Location: decreased breath sounds: Left, Upper - Cardiovascular Cardiovascular exam: Present: regular rate, normal rhythm, normal heart sounds - Abdominal Exam Abdominal exam: Present: soft, Non-Tender, normal bowel sounds - Expanded Lower Extremity Exam Lower leg exam: Present: full ROM, tenderness (Left calf), Homans' sign. Absent: swelling, ecchymosis Neurovascular/Tendon exam: Present: normal capillary refill. Absent: pulse deficit - Neurological Exam Neurological exam: Present: alert, oriented X3 - Psychiatric Psychiatric exam: Present: normal affect, normal mood - Skin Skin exam: Present: warm, dry, intact Course Course Narrative: 63-year-old male with recent history of multiple episodes of pneumonia including pseudomonas with recurrent similar symptoms. Also with new onset left calf pain, unable to give negative per criteria, moderate risk for DVT on [place], will obtain left ultrasound for evaluation for DVT. Otherwise we will obtain chest x-ray, troponin, CBC, BMP and two-view chest x-ray. - Reevaluation(s) Reevaluation #1: Per cardiovascular tech there is no DVT in the left lower extremity. Patient's awai ting CTA. Time: 13:40 Reevaluation #2: CTA reveals Acute PE of right upper lobe Time: 14:24 Vital Signs Temperature 99.0 F 05/02/18 10:47 Pulse Rate 83 05/02/18 10:47 Respiratory Rate 16 05/02/18 10:47 Blood Pressure 124/72 05/02/18 10:47 O2 Sat by Pulse Oximetry 93 05/02/18 10:47 Temperature 99.0 F 05/02/18 10:47 Pulse Rate 64 05/02/18 16:53 Respiratory Rate 18 05/02/18 16:17 Blood Pressure 113/54 05/02/18 16:53 O2 Sat by Pulse Oximetry 96 05/02/18 16:53 Oxygen Delivery Oxygen Delivery Nasal Cannula Medical Decision Making - MDM Narrative Medical decision making narrative: 63-year-old male history of psoriatic arthritis no longer on Enbrel but multiple recent admissions for pneumonia. 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 Initial workup for pneumonia including chest x-ray, CBC, BMP were unremarkable with the exception of slight leukocytosis. Patient also with left calf pain concerning for DVT given recent h ospitalizations resulted in negative ultrasound Doppler. Also with left shoulder pain and given continued shortness of breath obtained troponin 1 which was less than 0.03. Given his multiple episodes of pneumonia CTA was ordered to rule out PE versus pneumonia versus other infectious process and this resulted in findings of acute segmental and subsegmental pulmonary pulmonary embolism on the right. Discussed the case with cardiology as well as infectious diseases who recommended admission for continued monitoring. For management of acute pulmonary embolism patient started heparin as paced and declines Lovenox due to history of hematemesis or previous hospitalization from this medication. Patient's vital signs have remained stable throughout the entirety of his stay in the emergency department. IV antibiotics started per ID recommendations vancomycin and Zosyn. We will also obtain MRSA, legionella screening tests. Patient was admitted to hospitalist service in stable condition. All questions answered. - Medical Records Medical records reviewed: Yes I reviewed the patient's medical records. - Lab Data Lab results reviewed: Yes I reviewed the patient's lab results. Result diagrams: 05/02/18 10:53 05/02/18 10:53 Lab Results 05/02/18 05/02/18 05/02/18 Range/Units 10:53 10:53 14:56 WBC 13.5 H (4.3-11.1) K/mcL RBC 4.28 (4.19-5.50) M/mcL Hgb 13.7 (12.9-16.9) g/dL Hct 41.0 (37.5-50.1) % MCV 95.8 (83.0-100.0) fL MCH 32.0 (28.0-33.3) pg MCHC 33.4 (31.6-35.5) g/dL RDW 13.7 (11.5-14.5) % Plt Count 199 (140-400) K/mcL MPV 9.5 (9.4-12.4) fL Immature Gran % 0.5 (0-4) % Seg Neutrophils % 38.4 % Lymphocytes % 49.0 % Monocytes % 9.1 % Eosinophils % 1.8 % Basophils % 1.2 % Neutrophils # 5.2 (1.6-8.9) K/mcL Lymphocytes # 6.6 H (0.6-4.6) K/mcL Monocytes # 1.2 (0.0-1.3) K/mcL Eosinophils # 0.2 (0.0-0.6) K/mcL Basophils # 0.2 (0.0-0.2) K/mcL Nucleated RBCs/100 WBC 0.1 H (0) /100 WBC Reactive Lymphocytes Present A (Not Present) Platelet Estimate Normal (Normal) PT 12.4 H (9.4-12.1) Seconds INR 1.1 Heparin Anti-Xa, Unfract 0.04 L (0.30-0.70) IU/mL Sodium 136 (136-145) mEq/L Potassium 3.8 (3.5-5.1) mEq/L Chloride 101 (98-107) mEq/L Carbon Dioxide 27 (23-29) mEq/L BUN 18 (8-23) mg/dL Creatinine 1.14 (0.70-1.30) mg/dL Est GFR ( Amer) > 60 (> 60) Est GFR (Non-Af Amer) > 60 (> 60) BUN/Creatinine Ratio 16 (6-26) Glucose 100 (70-105) mg/dL Calculated Osmolality 284 (280-300) Calcium 9.7 (8.6-10.3) mg/dL Troponin I < 0.03 (< 0.04) ng/mL - Radiology Data Radiology results reviewed: Yes I reviewed the patient's radiology results. - EKG Data EKG #1 EKG attestation: Yes I reviewed and interpreted this EKG. EKG results narrative: Normal sinus rhythm rate of 84. Normal axis. DC 136, QRS 98, QTC 364, QTC 431. Nonspecific T-wave inversions in [address] elevation. When compared with previous EKG from 04/18/18, T-wave inversion in lead 3 is new. Attestation Statement - Attestation Attestation: I examined this patient and my medical decision-making was reviewed with the Resident Physician, Dr. Elizondo. I agree with the documented findings, disposition and treatment plan as described except to the extent set forth below. Patient is a 63-year-old white male with history of COPD on 3 L nasal cannula at night who is brought to the emergency department today by his with concerns for recurrent productive cough with greenish sputum fevers and chest discomfort with shortness of breath for the past 48 hours. Patient was admitted initially proximal knee 1 month ago and had a compensated course involving respiratory distress associated with sepsis as a result of pneumococcal pneumonia. Patient is being followed by infectious disease as well as pulmonology and has been on IV antibiotics as an inpatient was continued on a dditional oral medications that he is just recently finished within the past 24 hours. Despite this patient is having a recurrence of symptoms that he had the onset of his pneumonia. Patient also complains of some calf pain but no visible swelling overlying skin changes or rash. I agree with patient's physical exam findings as documented. Patient is hemodynamically stable and no signs of respiratory distress although has a harsh sounding productive cough at bedside. Patient underwent full lab evaluation including chest x-ray. Patient's x-ray does not show any evidence of recurrent pneumonia. We did order lower extremity venous Dopplers to rule out possible DVT. Patient's infectious disease doctor came by to see the patient and recommended CTA for further evaluation of pos sible recurrent pneumonia as well as to rule out PE. Patient initially was hesitant for CT scanning as he has had multiple scans as of recent due to his pulmonary conditions. Patient ultimately consented and CT shows a right upper lobe, nares embolus and subsegmental pulmonary arteries. There is no recurrence of the pneumonia. Patient was still covered by the request of his ID physician on IV antibiotics, he was anticoagulated with heparin, Dr. Greenberg as well as Dr. Morgan are were both in to see the patient within the ED. Case was discussed with hospitalist service who admitted the patient for further evaluation and management.
[2018-05-02 11:39] LABS: Basophils # 0.2 K/mcL (0.0-0.2); Basophils % 1.2 %; Eosinophils # 0.2 K/mcL (0.0-0.6); Eosinophils % 1.8 %; Hemoglobin 13.7 g/dL (12.9-16.9); Immature Granulocytes % 0.5 % (0-4); Lymphocytes # 6.6 K/mcL (0.6-4.6); Mean Corpuscular HGB Conc 33.4 g/dL (31.6-35.5); Mean Corpuscular Volume 95.8 fL (83.0-100.0); Mean Platelet Volume 9.5 fL (9.4-12.4); Monocytes # 1.2 K/mcL (0.0-1.3); Monocytes % 9.1 %; Neutrophils # 5.2 K/mcL (1.6-8.9); Nucleated Red Blood Cells 0.1 /100 WBC (0); Platelet Count 199 K/mcL (140-400); Red Blood Count 4.28 M/mcL (4.19-5.50); Red Cell Distribution Width 13.7 % (11.5-14.5); Segmented Neutrophils % 38.4 %
[2018-05-02 11:59] LABS: BUN/Creatinine Ratio 16 (6-26); Blood Urea Nitrogen 18 mg/dL (8-23); Calcium 9.7 mg/dL (8.6-10.3); Carbon Dioxide 27 mEq/L (23-29); Chloride 101 mEq/L (98-107); Glucose 100 mg/dL (70-105); Osmolality,Calculated 284 (280-300); Potassium 3.8 mEq/L (3.5-5.1); Sodium 136 mEq/L (136-145); eGFR For Non-African Americans > 60 (> 60)
[2018-05-02 12:00] LABS: Troponin I < 0.03 ng/mL (< 0.04)
[2018-05-02 12:18] LABS: Platelet Estimate Normal (Normal); Reactive Lymphocytes Present (Not Present)
[2018-05-02] MEDS ORDERED: Piperacillin/Tazobactam 3.375 GM in 0.9 % Sodium Chloride Mini Bag 100 ML IVPB ONE (12:43)
[2018-05-02] MEDS ORDERED: Isovue-370 500 ML INFUS..BTL IV ONE (12:43)
[2018-05-02] MEDS ORDERED: 0.9 % Sodium Chloride 1,000 ML IVC SCH (12:45)
[2018-05-02] MEDS ORDERED: Dexamethasone 4 MG/ML VIAL IVP ONE (14:05)
[2018-05-02] MEDS ORDERED: *HR* Heparin 5,000 UNIT/ML VIAL IVP PRN ×2 (14:41)
[2018-05-02] MEDS ORDERED: *HR* Heparin 5,000 UNIT/ML VIAL IVP ONE (14:41)
[2018-05-02] MEDS ORDERED: Ondansetron 4 MG/2 ML VIAL IVP PRN (14:57)
[2018-05-02] MEDS ORDERED: Acetaminophen 325 MG TABLET PO PRN (14:57)
[2018-05-02] MEDS ORDERED: Naloxone 0.4 MG/ML INJ IVP PRN (14:57)
[2018-05-02 15:46] LABS: Heparin anti-factor XA UFH 0.04 IU/mL (0.30-0.70)
[2018-05-02 15:47] LABS: INR 1.1; Prothrombin Time 12.4 Seconds (9.4-12.1)
[2018-05-02] MEDS: Heparin 25,000 UNIT/500 ML D5W 25,000 UNIT/500 ML BAG IVC SCH (16:12)
--- NOTE | 2018-05-02 16:13 | Electrocardiograph Report ---
[place] 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
--- NOTE | 2018-05-02 19:26 | Pulmonology Consult Note ---
Date of Encounter: 05/02/18 Time of Encounter: 14:30 Assessment and Plan (1) Pulmonary emboli Current Visit: Yes Status: Acute I have reviewed the CT chest personally with the radiologist and this pulmonary embolism his small and does not have any hemodynamic abnormalities on the patient and there is no evidence of right heart strain. Troponin is normal and this can be seen in a should not with pneumonia and discussed with primary team for anticoagulation and increase Lovenox will be more convenient and anticoagulation for no more than 3 months he has had to quit to and there is no radiologic abnormalities such as pulmonary infarct on CT chest. There is no urgent need for echocardiogram, however patient would be reasonable this to be done to evaluate right ventricular function and size in this patient with history of COPD. Qualifiers: Pulmonary embolism type: other Chronicity: acute Acute cor pulmonale presence: without acute cor pulmonale Qualified Code(s): I26.99 - Other pulmonary embolism without acute cor pulmonale (2) Pneumonia Current Visit: No Status: Resolved Reviewing CT chest there is clear evidence of improvement in his pneumonia and discussed with Dr. Craig and explained to the patient also that I don't feel he will need bronchoscopy. Because patient has history of psoriatic arthritis a typical infection in the differential diagnosis, however most recently he had complete workup and negative for any fungal infection. It is not clear to me if fever is secondary to his resolving pneumonia or perhaps from psoriatic arthritis has an inflammatory disease and for that reason I have discussed with Dr. Cormier for his opinion. She is on broad-spectrum antibiotics. Qualifiers: Pneumonia type: due to Pseudomonas Laterality: unspecified laterality Lung location: unspecified part of lung Qualified Code(s): J15.1 - Pneumonia due to Pseudomonas (3) Acute exacerbation of chronic obstructive airways disease Current Visit: Yes Status: Suspected Patient clearly has underlying COPD and there is evidence also of bronchitis in the right lower lobe. Patient is on nebulizer will add Symbicort and systemic steroid. Thank you for the consult. Plan of care discussed with the patient emergency room physician, primary care team and infectious disease. Please call for any questions. 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 Patient has history of COPD from previous smoking and he has recently been discharged from the hospital for a similar presentation and he had even previous to that treatment for pneumonia. This time he noticed more shortness of breath and he does use oxygen on exertion due to hypoxia. He admit for left shoulder pain which has improved and also left calf the pain. 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 He denies any hemoptysis and does have some wheezing. Patient has bronchodilators Past Med Surg Social Fam HX - Past Medical History Medical history: arthritis (Psoriatic), asthma, COPD, GERD, hypertension Psychiatric history: no psych history - Past Surgical History Surgical History: no surgical history Additional surgical history: miniscus right knee, hernia repair - Social History Smoking Status: Former smoker Smokeless Tobacco Status: No Alcohol use: rarely Drug use: none - Family History Mother Family Member Ethnicity: Non- Living Status: Hx Family Cardiac Disorders: Yes (HTN, A-FIB) Hx Family Respiratory Disorders: No Hx Family Cancer: Yes (melanoma) Hx Family GI Disorders: No Hx Family Endocrine Disorder: No Hx Family Neuromuscular Disorders: No Hx Family Neurologic Disorders: Yes (DEMENTIA) Hx Family HEENT Disorders: No Hx Family Autoimmune Disorders: No Medications and Allergies Albuterol Sulfate [Ventolin Hfa] 2 puff IH Q4-6H PRN 03/25/18 [History] Etanercept [Enbrel] 50 mg SQ PALMER 03/25/18 [History] Folic Acid 1 mg PO DAILY 03/25/18 [History] Methotrexate [Otrexup] 15 mg PO PALMER 03/25/18 [History] Montelukast [Singulair] 10 mg PO DAILY 03/25/18 [History] Olmesartan/Hydrochlorothiazide [Olmesartan-Hctz 40-25 mg Tab] 1 tab PO DAILY 03/25/18 [History] Tiotropium [place] [Spiriva Respimat] 1 puff IH DAILY 03/25/18 [History] Trazodone HCl 100 mg PO HS PRN 03/25/18 [History] raNITIdine HCl [Zantac] 150 mg PO BID 03/25/18 [History] Allergy/AdvReac Type Severity Reaction Status Date / Time azithromycin [From Zithromax] Allergy Hives Verified 03/25/18 09:13 levofloxacin [From Levaquin] Allergy Difficulty Verified 03/25/18 09:13 Breathing All Systems: The remainder of the systems were reviewed and are negative Physical Examination Vital Signs: Vital Signs, Last 4 Hours Pulse Resp BP Pulse Ox 05/02/18 14:33 74 20 109/65 96 05/02/18 14:00 74 116/60 96 05/02/18 13:30 109/62 05/02/18 13:07 94 05/02/18 12:48 73 120/64 05/02/18 11:40 76 24 126/54 92 General: Patient is in no acute distress. HEENT: Normocephalic atraumatic, pupils are equal round and reactive to light and accommodation, anicteric sclera, nares is patent, mucous membranes moist, no JVD, trachea is midline Cardiovascular: Normal sinus rhythm, S1 and S2 audible, no murmur or rubs Respiratory: Clear to auscultation in the bedside with rhonchi in the right base. No acute distress. No wheezing. Patient not using accessory muscles. Abdomen: Soft, nontender, nondistended, positive bowel sounds in all 4 quadrants Extremities: Warm, dry, no lower extremity edema. Normal capillary refill. Left pulse is normal and there is no size difference and left and right lower extremity. Left lower extremity calf muscle tenderness Neuro: Alert and oriented and follows commands. Grossly no neuro deficits. Skin: Warm to touch : No obvious abnormalities. Psych: Normal Results - Laboratory Findings CBC and BMP: 05/02/18 10:53 05/02/18 10:53 Abnormal lab findings: Abnormal lab results WBC 13.5 K/mcL (4.3-11.1) H 05/02/18 10:53 Lymphocytes # 6.6 K/mcL (0.6-4.6) H 05/02/18 10:53 Nucleated RBCs/100 WBC 0.1 /100 WBC (0) H 05/02/18 10:53 Reactive Lymphocytes Present (Not Present) A 05/02/18 10:53 - Diagnostic Findings CT scan - chest: report reviewed, image reviewed - Clinical Findings Intake & Output: Intake & Output 05/01/18 05/02/18 05/02/18 23:59 07:59 15:59 Weight 80.739 kg Consult Discharge Plan - Plan
--- NOTE | 2018-05-02 19:32 | Internal Med History&Physical ---
Addendum entered and electronically signed by Miky Bartlett 05/05/18 08:08: Original Note: <TriMiky Segovia - Last Filed: 05/02/18 16:18> Time of Encounter: 15:30 Internal Medicine - H&P: HPI Chief complaint: Cough and SOB Admitted From: Home History of present illness: Mr. Ocampo is a 63 year old male with PMH of COPD, asthma, HTN, GERD, and psoriatic arthritis who presents with productive cough and worsening SOB for the past 2 days and had a fever with a Tmax of 101.6. Pt was recently admitted to the hospital in March and diagnosed with Pseudmonas pneumonia which was attributed to his history of being on CPAP at night and history of Enbrel for psoriatic arthritis. Pt was sent home at that time doxycycline and augmentin and told to complete a prednisone taper. Today, pt took his doxycycline, augmentin, and finished his last dose of prednisone. Since his last admission, pt has been off of his Enbrel. Pt states that his cough is productive and he sometimes coughs up a thick, green sputum. No blood present. Pt was sitting in the room on 2L O2 NC and was comfortable, but normally only wears 3L O2 at night with his CPAP. Additionally, he has been experiencing left calf pain for the past few days. Pt attributed this pain to his history of plantar fasciitis, but his pain never improved. He denies recent travel, any cancers, or any history of DVT/PE. He states his calf pain is stabbing in nature and is worse when he dorsiflexes his foot. This has never happened to him before. Also, pt complained of L shoulder pain that is stabbing in nature, but never gets better or worse with movement. Pt denies nausea, vomiting, chest pain, constipation, diarrhea, hematochezia, dysuria, or hematuria. ED Course: pt given 1L NS bolus. Started on vanc and zosyn. Given one dose of dexamethasone 10mg. Labs were drawn and WBC was 13.5, but were otherwise unremarkable. Troponins were negative. CXR was non-acute. CTA showed acute PE in R upper lobe, but no saddle embolus, evidence of right heart strain, or pulm onary infarct; ground glass opacities present consistent of recnet h/o pneumonia. Past Med Surg Social Fam HX - Past Medical History Medical history: arthritis (Psoriatic), asthma, COPD, GERD, hypertension Psychiatric history: no psych history - Past Surgical History Surgical History: no surgical history Additional surgical history: miniscus right knee, hernia repair - Social History Smoking Status: Former smoker Smokeless Tobacco Status: No Alcohol use: rarely Drug use: none - Family History Mother Family Member Ethnicity: Non- Living Status: Hx Family Cardiac Disorders: Yes (HTN, A-FIB) Hx Family Respiratory Disorders: No Hx Family Cancer: Yes (melanoma) Hx Family GI Disorders: No Hx Family Endocrine Disorder: No Hx Family Neuromuscular Disorders: No Hx Family Neurologic Disorders: Yes (DEMENTIA) Hx Family HEENT Disorders: No Hx Family Autoimmune Disorders: No Internal Medicine - H&P: Meds RX: Albuterol Sulfate [Ventolin Hfa] 2 puff IH Q4-6H PRN 03/25/18 [History] RX: Etanercept [Enbrel] 50 mg SQ PALMER 03/25/18 [History] RX: Folic Acid 1 mg PO DAILY 03/25/18 [History] RX: Methotrexate [Otrexup] 15 mg PO PALMER 03/25/18 [History] RX: Montelukast [Singulair] 10 mg PO DAILY 03/25/18 [History] RX: Olmesartan/Hydrochlorothiazide [Olmesartan-Hctz 40-25 mg Tab] 1 tab PO DAILY 03/25/18 [History] RX: Tiotropium [place] [Spiriva Respimat] 1 puff IH DAILY 03/25/18 [History] RX: Trazodone HCl 100 mg PO HS PRN 03/25/18 [History] RX: raNITIdine HCl [Zantac] 150 mg PO BID 03/25/18 [History] Rivaroxaban [Xarelto] 20 mg PO QDPC #60 tablet 05/03/18 [Rx] Allergy/AdvReac Type Severity Reaction Status Date / Time azithromycin [From Zithromax] Allergy Hives Verified 03/25/18 09:13 levofloxacin [From Levaquin] Allergy Difficulty Verified 03/25/18 09:13 Breathing All Systems PM: A 10-system review of systems was performed and is negative for pertinent findings except as documented above in the HPI. - Constitutional Constitutional: fatigue, fever(s), no excessive sweating - EENT Eyes: as per HPI Ears: as per HPI Nose, mouth and throat: as per HPI - Breasts Breasts: as per HPI - Cardiovascular Cardiovascular ROS IM: dyspnea, no chest pain, no diaphoresis, no palpitations - Respiratory Respiratory: cough, dyspnea, pain on inspiration, no hemoptysis, no wheezing - Gastrointestinal Gastrointestinal: no abdominal pain, no constipation, no diarrhea, no hematochezia, no nausea, no vomiting - Genitourinary Genitourinary ROS male: no difficulty urinating, no dysuria, no hematuria - Musculoskeletal Musculoskeletal ROS IM: other (L shoulder pain) - Integumentary Integumentary IM: as per HPI - Neurological Neurological ROS: no abnormal speech, no confusion, no focal weakness - Psychiatric Psychiatric: no behavioral changes, no confusion - Endocrine Endocrine IM: as per HPI - Hematologic/Lymphatic Hematologic/Lymphatic: as per HPI - Allergic/Immunologic Allergic/Immunologic: as per HPI - Constitutional Vitals: Temp Pulse Resp BP Pulse Ox 99.0 F 71 20 105/57 96 05/02/18 10:47 05/02/18 15:03 05/02/18 14:33 05/02/18 15:03 05/02/18 14:33 General appearance: Present: A&O X 3, pleasant - Head Head exam: Present: atraumatic, normocephalic - Eye Eye exam: Present: PERRL, conjuntiva pink, sclera anicteric Pupils: Present: PERRL - Neck Neck exam general surgery: Present: supple, trachea midline. Absent: lymphadenopathy - Respiratory Respiratory exam: Present: CTAB. Absent: rales, rhonchi, wheezes - Cardiovascular Cardiovascular exam: Present: RRR, +S1, +S2. Absent: diastolic murmur, gallop, rubs, systolic murmur - GI/Abdominal GI/Abdominal exam: Present: distended, normal bowel sounds, soft, no peritoneal signs. Absent: tenderness - Extremities Exam Extremities exam: Present: calf tenderness (L calf extremely tender to palpation adn erythematous), warm, radial pulses palpable and symmetrical. Absent: cyanotic, pedal edema - Neurological Exam Neurological exam: Present: alert, oriented X3, no focal deficits. Absent: facial droop, speech deficit - Skin Skin exam: Present: dry, intact Internal Med - H&P Results - Labs CBC & Chem 7: 05/02/18 10:53 05/02/18 10:53 Labs: Short CBC 05/02/18 Range/Units 10:53 WBC 13.5 H (4.3-11.1) K/mcL Hgb 13.7 (12.9-16.9) g/dL Hct 41.0 (37.5-50.1) % Plt Count 199 (140-400) K/mcL Neutrophils # 5.2 (1.6-8.9) K/mcL BMP 05/02/18 10:53 Sodium 136 Potassium 3.8 Chloride 101 Carbon Dioxide 27 BUN 18 Creatinine 1.14 Glucose 100 Calcium 9.7 Cardiac Enzymes 05/02/18 Range/Units 10:53 Troponin I < 0.03 (< 0.04) ng/mL - Impressions ITS Impressions Chest X-Ray 05/02/18 11:10 IMPRESSION: No acute cardiopulmonary process is identified. D/ / Arnaldo Delgado MD / Arnaldo Delgado MD Interpreting Provider: Arnaldo Delgado MD Chest CTA 05/02/18 12:43 IMPRESSION: Acute pulmonary embolism involving the right upper lobe segmental/subsegmental branches. No saddle embolism, evidence of right heart strain or pulmonary infarct. Minimal patchy ground-glass opacity at the left lung base reflects residua of left lower lobe pneumonia seen on 03/27/2018 exam. Critical results were called by Dr. Sharif Serrato to Dr. Jones on 05/02/2018 at 14:08. D/ / Sharif Serrato / Sharif Serrato Interpreting Provider: Sharif Serrato - Assessment and plan (1) Pulmonary emboli Current Visit: Yes Status: Acute Assessment and plan: -though no recent travel, h/o DVT, or h/o cancer, likely 2/2 recent hospitalizations and bedrest from recent pneumonia -CTA: acute PE in RUL; no saddle embolism, evidence of R heart strain, or pulmonary infarct; ground glass opacities consistent with prior pneumonia -CXR: non acute -heparin gtt -echo pending -PT/INR pending -heparin anti-factor XA level pending -daily labs -pulmonary consulted (2) Pneumonia Current Visit: No Status: Resolved Assessment and plan: -recent hospitalization with Pseudomonas pneumonia -MRSA and Legionella pending -continue Vanc and Zosyn -continue to hold home Enbrel -daily CXRs -monitor fluid status -ID following Qualifiers: Pneumonia type: due to Pseudomonas Laterality: unspecified laterality Lung location: unspecified part of lung Qualified Code(s): J15.1 - Pneumonia due to Pseudomonas (3) History of COPD Current Visit: No Status: Chronic Assessment and plan: -30 pack year h/o smoking -dexamethasone given in ED -monitor breathing status (4) Fever Current Visit: No Status: Acute Assessment and plan: -Tmax of 101.6 at home -tylenol PRN Q6 -monitor (5) Leukocytosis Current Visit: No Status: Acute Assessment and plan: -likely 2/2 recent prednisone use -monitor for elevation -daily labs Qualifiers: Leukocytosis type: unspecified Qualified Code(s): D72.829 - Elevated white blood cell count, unspecified (6) GERD (gastroesophageal reflux disease) Current Visit: No Status: Chronic Assessment and plan: -hold home medication -Zofran PRN Q6 Qualifiers: Esophagitis presence: esophagitis presence not specified Qualified Code(s): K21.9 - Gastro-esophageal reflux disease without esophagitis (7) HTN (hypertension) Current Visit: No Status: Chronic Assessment and plan: -hold home BP medications: olmesartan/HCTZ -monitor BP status Qualifiers: Hypertension type: essential hypertension Qualified Code(s): I10 - Essential (primary) hypertension (8) Psoriatic arthritis Current Visit: No Status: Chronic Assessment and plan: -continue to hold home Enbrel - Time Spent With Patient Total time spent is greater than 50% in coordination of care (as documented) at patient's floor/unit and/or counseling patient: Greater than 35 minutes <Miah Freitas - Last Filed: 05/04/18 08:00> Date of Encounter: 05/02/18 Internal Medicine - H&P: HPI History of present illness: Mr. Ocampo is a 63 year old male All Systems PM: A 10-system review of systems was performed and is negative for pertinent findings except as documented above in the HPI. - Constitutional Vitals: Temp Pulse Resp BP Pulse Ox 99.0 F 64 18 113/54 96 05/02/18 10:47 05/02/18 16:53 05/02/18 16:17 05/02/18 16:53 05/02/18 16:53 Exam: See below Internal Med - H&P Results - Labs CBC & Chem 7: 05/03/18 05:29 05/03/18 05:29 Labs: Short CBC 05/02/18 Range/Units 10:53 WBC 13.5 H (4.3-11.1) K/mcL Hgb 13.7 (12.9-16.9) g/dL Hct 41.0 (37.5-50.1) % Plt Count 199 (140-400) K/mcL Neutrophils # 5.2 (1.6-8.9) K/mcL BMP 05/02/18 10:53 Sodium 136 Potassium 3.8 Chloride 101 Carbon Dioxide 27 BUN 18 Creatinine 1.14 Glucose 100 Calcium 9.7 Cardiac Enzymes 05/02/18 Range/Units 10:53 Troponin I < 0.03 (< 0.04) ng/mL - Impressions ITS Impressions Chest X-Ray 05/02/18 11:10 IMPRESSION: No acute cardiopulmonary process is identified. D/ / Arnaldo Delgado MD / Arnaldo Delgado MD Interpreting Provider: Arnaldo Delgado MD Chest CTA 05/02/18 12:43 IMPRESSION: Acute pulmonary embolism involving the right upper lobe segmental/subsegmental branches. No saddle embolism, evidence of right heart strain or pulmonary infarct. Minimal patchy ground-glass opacity at the left lung base reflects residua of left lower lobe pneumonia seen on 03/27/2018 exam. Critical results were called by Dr. Sharif Serrato to Dr. Jones on 05/02/2018 at 14:08. D/ / Sharif Serrato / Sharif Serrato Interpreting Provider: Sharif Serrato - Assessment and plan (1) Pulmonary emboli Current Visit: Yes Status: Acute Qualifiers: Pulmonary embolism type: other Chronicity: acute Acute cor pulmonale presence: without acute cor pulmonale Qualified Code(s): I26.99 - Other pulmonary embolism without acute cor pulmonale (2) Fever Current Visit: No Status: Acute Qualifiers: Fever type: due to other condition Qualified Code(s): R50.81 - Fever presenting with conditions classified elsewhere (3) GERD (gastroesophageal reflux disease) Current Visit: No Status: Chronic Qualifiers: Esophagitis presence: esophagitis presence not specified Qualified Code(s): K21.9 - Gastro-esophageal reflux disease without esophagitis (4) HTN (hypertension) Current Visit: No Status: Chronic Qualifiers: Hypertension type: essential hypertension Qualified Code(s): I10 - Essential (primary) hypertension (5) Chronic respiratory failure Current Visit: No Status: Chronic Qualifiers: Respiratory failure complication: hypoxia Qualified Code(s): J96.11 - Chronic respiratory failure with hypoxia (6) Psoriatic arthritis Current Visit: No Status: Chronic - Time Spent With Patient Total time spent is greater than 50% in coordination of care (as documented) at patient's floor/unit and/or counseling patient: - Attending Attestation The history, physical exam, and medical decision making was performed by the medical student either while I was physically present and actively involved or I personally re-performed the exam and medical decision making. I have verified the accuracy of the medical student's documentation with regards to the history, physical exam findings, and medical decision making on 05/02/18. Terrence presented to ED with fever and increased cough. He has purulent sputum. Some discomfort in L shoulder and L calf. Eval has found PE RUL area. Seen by pulm and ID - abx started. At this time he feels sweaty and tired. Exam alert Tired Clammy and warm Mucus membranes dry Heart reg No wheeze abd soft and nontender No edema L calf discomfort I/P 1. RUL PE 2. Hx pseudomonas pneumonia Further diagnosesa and plan as above.
--- NOTE | 2018-05-02 19:34 | Infectious Disease Consult ---
Date of Encounter: 05/02/18 Time of Encounter: 15:56 Assessment and Plan (1) Sepsis Status: Resolved Assessment and plan: Patient had 2-3 SIRS criteria on admission He supposedly had in the 102 Fahrenheit fever, chills and productive green sputum cough at home Not sure if he is having SIRS criteria secondary to the PE or he has bronchitis as well CT chest reveals no pneumonia or consolidation but does revealed minimal patchy ground glass opacity at the left lung base reflects residual of left lower lobe pneumonia I did review the CT scan with Dr. azul Patient was started empirically on vancomycin and Zosyn in the ED We will continue current antibiotics until the cultures, the sputum, the respiratory infectious panel, the workup is back and hopefully we can de- escalate Known to have pneumonia with pseudomonas aeruginosa Monitor labs and for drug toxicity Qualifiers: Sepsis type: sepsis due to unspecified organism Qualified Code(s): A41.9 - Sepsis, unspecified organism (2) Pulmonary emboli Status: Acute Assessment and plan: Revealed illness CT chest May 02 with thousand 18 Acute pulmonary embolism involving the right upper lobe segmental/subsegmental branches. No saddle embolism or evidence of right heart strain or pulmonary infarct Discussed with Dr. Azul, he is aware and patient was started on Lovenox. Qualifiers: Pulmonary embolism type: other Chronicity: acute Acute cor pulmonale presence: without acute cor pulmonale Qualified Code(s): I26.99 - Other pulmonary embolism without acute cor pulmonale (3) Allergy to multiple antibiotics Status: Acute Assessment and plan: Allergies to levofloxacin and azithromycin Had angioedema and hives (4) Immunocompromised Status: Acute (5) History of COPD Status: Chronic (6) Psoriatic arthritis Status: Chronic Assessment and plan: Patient follows Dr. Cormier Was on methotrexate and Enbrel We will hold these medications until the infection/sepsis clears Discussed with Dr. Cormier Infectious Disease HPI - Data of Consult Patient: known to practice within the last 3 years Consult date: 05/02/18 Primary Care Provider: Jame Trivedi - Consult Narrative Reason for consult: infection History of present illness: Mr. Ocampo is a 63 year old male Patient is a 63-year-old gentleman who is well-known to my service has seen by me on 2 previous admissions with pneumonia with pseudomonas aeruginosa. Initially patient came in had a sepsis like picture and a pneumonia. Sputum culture was positive for pseudomonas aeruginosa that was pansensitive the patient is allergic to fluoroquinolones so we put him on cefepime for 2 weeks. Clinically patient was doing better but was not really back to baseline. After the antibiotics were stopped patient get ill again and presented back to [facility] for evaluation. Patient was readmitted on 04/18/2018 with fevers and a headache. At that time he was diagnosed with acute her history failure with hypoxia, COPD with acute exacerbation sepsis. The CT chest at that time reveals resolution of pneumonia. Rest infectious panel was done and came back negative. Sputum culture not obtained due to contamination with epithelial cells. Patient did improve significantly broad-spectrum antibiotics. Based on previous presentation I put the patient on Augmentin and doxycycline to finish a 14 day course. Also after long discussion because the patient is immunocompromised and is on methotrexate and Enbrel and this is his second admission in the modified decided to check fungal serologies. Aspergillus galactomannan and fungitell were both negative. Crypto antigen was also negative. While on steroids on Augmentin and doxycycline patient continue to feel better. Eventually he went to work for 2 days and then he started having worsening pleuritic chest pain radiating to his left back and started having fevers chills and dyspnea on exertion. Patient also tells me that he had 104 Fahrenheit temperature. Patient came into the ED for evaluation. Since admission, patient has been afebrile. I saw him literally within an hour after he showed up he has either received any antibiotics. Patient physical exam is negative for URI symptoms. He does have decreased breath sounds universally but no wheezing or rhonchi. Abdomen was soft nontender but he had significant tenderness on his left calf muscle. Homans sign was also positive. CC: Past Med Surg Social Fam HX - Past Medical History Medical history: arthritis (Psoriatic), asthma, COPD, GERD, hypertension Psychiatric history: no psych history - Past Surgical History Surgical History: no surgical history Additional surgical history: miniscus right knee, hernia repair - Social History Smoking Status: Former smoker Smokeless Tobacco Status: No Alcohol use: rarely Drug use: none - Family History Mother Family Member Ethnicity: Non- Living Status: Hx Family Cardiac Disorders: Yes (HTN, A-FIB) Hx Family Respiratory Disorders: No Hx Family Cancer: Yes (melanoma) Hx Family GI Disorders: No Hx Family Endocrine Disorder: No Hx Family Neuromuscular Disorders: No Hx Family Neurologic Disorders: Yes (DEMENTIA) Hx Family HEENT Disorders: No Hx Family Autoimmune Disorders: No Infectious Disease-CN:Meds RX: Albuterol Sulfate [Ventolin Hfa] 2 puff IH Q4-6H PRN 03/25/18 [History] RX: Etanercept [Enbrel] 50 mg SQ PALMER 03/25/18 [History] RX: Folic Acid 1 mg PO DAILY 03/25/18 [History] RX: Methotrexate [Otrexup] 15 mg PO PALMER 03/25/18 [History] RX: Montelukast [Singulair] 10 mg PO DAILY 03/25/18 [History] RX: Olmesartan/Hydrochlorothiazide [Olmesartan-Hctz 40-25 mg Tab] 1 tab PO DAILY 03/25/18 [History] RX: Tiotropium [place] [Spiriva Respimat] 1 puff IH DAILY 03/25/18 [History] RX: Trazodone HCl 100 mg PO HS PRN 03/25/18 [History] RX: raNITIdine HCl [Zantac] 150 mg PO BID 03/25/18 [History] Allergy/AdvReac Type Severity Reaction Status Date / Time azithromycin [From Zithromax] Allergy Hives Verified 03/25/18 09:13 levofloxacin [From Levaquin] Allergy Difficulty Verified 03/25/18 09:13 Breathing Review of systems: 10 point review of systems done, negative other for what is mentioned in history of present illness Exam - Constitutional Vitals: Temp Pulse Resp BP Pulse Ox 99.0 F 71 20 105/57 96 05/02/18 10:47 05/02/18 15:03 05/02/18 14:33 05/02/18 15:03 05/02/18 14:33 General appearance: cooperative, no acute distress, no febrile - Head Head exam: Present: atraumatic, normocephalic - Eye Eye exam: Present: EOMI, PERRL, sclera anicteric - ENT ENT exam: Present: mucous membranes dry, normal exam - Neck Neck exam: Present: full ROM. Absent: meningismus - Respiratory Respiratory exam: Present: CTAB. Absent: wheezes Additional comments: Diminished breath sounds universally. Some diffuse rhonchi/crackles in the left base - Cardiovascular Cardiovascular exam: Present: RRR, +S1, +S2 - GI/Abdominal GI/Abdominal exam: Present: normal bowel sounds, soft. Absent: tenderness - Extremities Exam Extremities exam: Present: calf tenderness Additional comments: Left calf tenderness and positive Homans sign - Back Exam Back exam: Present: normal inspection. Absent: vertebral tenderness - Neurological Exam Neurological exam: Present: alert, oriented X3. Absent: speech deficit - Psychiatric Psychiatric exam: Present: normal affect, normal mood - Skin Skin exam: Present: normal color. Absent: rash Infectious Disease CN: Results - Labs CBC & Chem 7: 05/02/18 10:53 05/02/18 10:53 Consult Discharge Plan - Plan Referrals: Jame Trivedi DO [Primary Care Provider] -
[2018-05-02] MEDS: traZODone 50 MG TABLET PO PRN (22:36)
[2018-05-02] MEDS: Famotidine 20 MG TABLET PO SCH (22:36)
[2018-05-02] MEDS: Piperacillin/Tazobactam 3.375 GM in 0.9 % Sodium Chloride Mini Bag 100 ML IVPB SCH (23:51)
[2018-05-03] MEDS: methylPREDNISolone 125 MG/2 ML VIAL IVP SCH ×3 (00:27→16:21)
[2018-05-03 05:48] LABS: Basophils % 0.4 %; Eosinophils % 0.1 %; Hematocrit 37.5 % (37.5-50.1); Hemoglobin 12.7 g/dL (12.9-16.9); Immature Granulocytes % 0.9 % (0-4); Lymphocytes # 3.2 K/mcL (0.6-4.6); Mean Corpuscular HGB Conc 33.9 g/dL (31.6-35.5); Mean Corpuscular Hemoglobin 31.8 pg (28.0-33.3); Mean Platelet Volume 9.3 fL (9.4-12.4); Monocytes # 0.4 K/mcL (0.0-1.3); Monocytes % 3.6 %; Neutrophils # 6.3 K/mcL (1.6-8.9); Platelet Count 201 K/mcL (140-400); Red Blood Count 3.99 M/mcL (4.19-5.50); Red Cell Distribution Width 13.3 % (11.5-14.5)
[2018-05-03 06:09] LABS: BUN/Creatinine Ratio 18 (6-26); Blood Urea Nitrogen 17 mg/dL (8-23); Calcium 9.1 mg/dL (8.6-10.3); Carbon Dioxide 22 mEq/L (23-29); Chloride 106 mEq/L (98-107); Glucose 155 mg/dL (70-105); Osmolality,Calculated 293 (280-300); Potassium 3.9 mEq/L (3.5-5.1); Sodium 139 mEq/L (136-145); eGFR For Non-African Americans > 60 (> 60)
--- NOTE | 2018-05-03 07:36 | Internal Med Progress Note ---
<Arnaldo Bartlett - Last Filed: 05/03/18 15:34> Hospitalist Progress Note - Encounter Date of Encounter: 05/03/18 Time of Encounter: 09:36 - Subjective Interval History: Patient seen and examined resting comfortably in bed. Patient denies worsening shortness of breath or requiring breathing treatments. Patient reports cough with productive sputum. Sputum culture ordered. Repeat chest x-ray this morning shows increased right infrahilar opacity. Patient remains on heparin drip at this time for acute PE. - Exam Vitals: Temp Pulse Resp BP Pulse Ox 97.4 F L 63 16 124/73 92 05/03/18 05:39 05/03/18 03:19 05/03/18 03:19 05/03/18 03:19 05/03/18 03:19 Exam: General appearance: Present: cooperative, A&O X 3, no acute distress, awake, pleasant, resting comfortably in bed Head exam: Present: atraumatic, normocephalic Eye exam: Present: EOMI, conjuntiva pink, sclera anicteric ENT exam: Present: mucous membranes moist Neck exam: Present: supple, trachea midline. Respiratory exam: Present: Diminished breath sounds bilaterally, minimal r honchi/crackles. Absent: accessory muscle use, wheezes Cardiovascular exam: Present: RRR, +S1, +S2. Absent: diastolic murmur, gallop, rubs, systolic murmur GI/Abdominal exam: Present: normal bowel sounds, soft, no peritoneal signs. Absent: distended, tenderness Extremities exam: Present: warm, radial pulses palpable and symmetrical. Absent: calf tenderness, cyanotic, pedal edema Neurological exam: Present: CN II-XII intact, oriented X3, no focal deficits. Absent: facial droop, speech deficit Psychiatric exam: Present: normal affect, normal mood Skin exam: Present: dry, warm - Assessment and Plan (1) Pneumonia Current Visit: No Status: Resolved Assessment and Plan: Pt was recently admitted to the hospital in March and diagnosed with Pseudmonas pneumonia which was attributed to his history of being on CPAP at night and history of Enbrel for psoriatic arthritis. Previously on Doxycycline, augmentin, and prednisone. Chest x-ray this morning shows increased right infrahilar opacity Continue empiric vancomycin and Zosyn day 2 Sputum culture pending ID following (2) Chronic respiratory failure Current Visit: No Status: Chronic Assessment and Plan: Patient wears 3 L supplemental oxygen at night along with CPAP. Continue monitoring (3) HTN (hypertension) Current Visit: No Status: Chronic Assessment and Plan: Continue hydrochlorothiazide. (4) Psoriatic arthritis Current Visit: No Status: Chronic Assessment and Plan: Continue to hold home Embrel (5) Pulmonary emboli Current Visit: Yes Status: Acute Assessment and Plan: Likely due to recent hospitalization from recent pneumonia and immobilization CTA: acute PE in RUL; no saddle embolism, evidence of R heart strain, or pulmonary infarct; ground glass opacities consistent with prior pneumonia CXR: Nothing acute Continue heparin gtt, will need to hernandez check anticoagulation therapy. Patient prefers Xarelto Echo revealed LVEF 55-60%, unable to estimate RV S/P, no evidence of pulmonary hypertension Pulmonology following DVT Prophylaxis: Heparin - Time Spent with Patient Total time spent is greater than 50% in coordination of care (as documented) at patient's floor/unit and/or counseling patient: Internal Medicine: Result - Labs CBC & Chem 7: 05/03/18 05:29 05/03/18 05:29 Labs: Short CBC 05/02/18 05/03/18 Range/Units 10:53 05:29 WBC 13.5 H 10.0 (4.3-11.1) K/mcL Hgb 13.7 12.7 L (12.9-16.9) g/dL Hct 41.0 37.5 (37.5-50.1) % Plt Count 199 201 (140-400) K/mcL Neutrophils # 5.2 6.3 (1.6-8.9) K/mcL BMP 05/02/18 05/03/18 10:53 05:29 Sodium 136 139 Potassium 3.8 3.9 Chloride 101 106 Carbon Dioxide 27 22 L BUN 18 17 Creatinine 1.14 0.97 Glucose 100 155 H Calcium 9.7 9.1 Cardiac Enzymes 05/02/18 Range/Units 10:53 Troponin I < 0.03 (< 0.04) ng/mL - ABG Interpretation ABG results: PT/INR, D-dimer PT 12.4 Seconds (9.4-12.1) H 05/02/18 14:56 - Impressions Impressions Chest X-Ray 05/02/18 11:10 IMPRESSION: No acute cardiopulmonary process is identified. D/ / Arnaldo Delgado MD / Arnaldo Delgado MD Interpreting Provider: Arnaldo Delgado MD Chest CTA 05/02/18 12:43 IMPRESSION: Acute pulmonary embolism involving the right upper lobe segmental/subsegmental branches. No saddle embolism, evidence of right heart strain or pulmonary infarct. Minimal patchy ground-glass opacity at the left lung base reflects residua of left lower lobe pneumonia seen on 03/27/2018 exam. Critical results were called by Dr. Sharif Serrato to Dr. Jones on 05/02/2018 at 14:08. D/ / Sharif Serrato / Sharif Serrato Interpreting Provider: Sharif Serrato Consult Discharge Plan - Plan Referrals: Jame Trivedi DO [Primary Care Provider] - Prescriptions: Rivaroxaban [Xarelto] 20 mg PO QDPC #60 tablet <Miah Freitas - Last Filed: 05/03/18 18:26> Hospitalist Progress Note - Exam Vitals: Temp Pulse Resp BP Pulse Ox 97.3 F L 86 16 114/57 92 05/03/18 16:33 05/03/18 16:33 05/03/18 16:33 05/03/18 16:33 05/03/18 16:33 - Assessment and Plan (1) Pneumonia Current Visit: No Status: Resolved (2) Psoriatic arthritis Current Visit: No Status: Chronic (3) HTN (hypertension) Current Visit: No Status: Chronic (4) Chronic respiratory failure Current Visit: No Status: Chronic (5) Pulmonary emboli Current Visit: Yes Status: Acute (6) Acute respiratory failure with hypoxia Current Visit: No Status: Acute - Time Spent with Patient Total time spent is greater than 50% in coordination of care (as documented) at patient's floor/unit and/or counseling patient: Internal Medicine: Result - Labs CBC & Chem 7: 05/03/18 05:29 05/03/18 05:29 Labs: Short CBC 05/03/18 Range/Units 05:29 WBC 10.0 (4.3-11.1) K/mcL Hgb 12.7 L (12.9-16.9) g/dL Hct 37.5 (37.5-50.1) % Plt Count 201 (140-400) K/mcL Neutrophils # 6.3 (1.6-8.9) K/mcL BMP 05/03/18 05:29 Sodium 139 Potassium 3.9 Chloride 106 Carbon Dioxide 22 L BUN 17 Creatinine 0.97 Glucose 155 H Calcium 9.1 - ABG Interpretation ABG results: PT/INR, D-dimer PT 12.4 Seconds (9.4-12.1) H 05/02/18 14:56 - Impressions Impressions Chest X-Ray 05/03/18 04:00 IMPRESSION: Interval development of linear opacity in the right midlung with slightly increased right infrahilar opacity. Findings could reflect atelectasis or pneumonia in the appropriate clinical setting. D/ / Cherie Santa MD / Cherie Santa MD Interpreting Provider: Cherie Santa MD Echocardiogram 05/03/18 15:04 Impressions: Technically adequate exam. LVEF 55-60%. Normal right ventricular structure and function. No significant valvular dysfunction. Unable to estimate RVSP due to lack of TR jet. - Attending Attestation I examined this patient and my medical decision-making was reviewed with the Resident Physician on 05/03/18. I agree with the documented findings, disposition and treatment plan as described except to the extent set forth below. 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 He remains moderate to high risk due to potential for worsening clinical status. Dr Ocampo is doing somewhat better today. No fever or chills. CXR shows infiltrate now. Less cough. Exam Alert Comfortable Mucus membranes dry Not tachy No wheeze No edema I/P 1. Acute PE - on heparin drip 2. Pneumonia - on IV abx Further diagnoses and plan as above. As he is going to be hospitalized for at least 2 more nights and has increased acuteness with pneumonia now seen will convert him to inpatient status. <Arnaldo Bartlett - Last Filed: 05/03/18 15:34> (1) Pneumonia Qualifiers: Pneumonia type: due to Pseudomonas Laterality: unspecified laterality Lung location: unspecified part of lung Qualified Code(s): J15.1 - Pneumonia due to Pseudomonas (2) Chronic respiratory failure Qualifiers: Respiratory failure complication: hypoxia Qualified Code(s): J96.11 - Chronic respiratory failure with hypoxia (3) HTN (hypertension) Qualifiers: Hypertension type: essential hypertension Qualified Code(s): I10 - Essential (primary) hypertension (5) Pulmonary emboli Qualifiers: Pulmonary embolism type: other Chronicity: acute Acute cor pulmonale prese nce: without acute cor pulmonale Qualified Code(s): I26.99 - Other pulmonary embolism without acute cor pulmonale <Miah Freitas - Last Filed: 05/03/18 18:26> (1) Pneumonia Qualifiers: Pneumonia type: due to Pseudomonas Laterality: right Lung location: middle lobe of lung Qualified Code(s): J15.1 - Pneumonia due to Pseudomonas (3) HTN (hypertension) Qualifiers: Hypertension type: essential hypertension Qualified Code(s): I10 - Essential (primary) hypertension (4) Chronic respiratory failure Qualifiers: Respiratory failure complication: hypoxia Qualified Code(s): J96.11 - Chronic respiratory failure with hypoxia (5) Pulmonary emboli Qualifiers: Pulmonary embolism type: other Chronicity: acute Acute cor pulmonale presence: without acute cor pulmonale Qualified Code(s): I26.99 - Other pulmonary embolism without acute cor pulmonale
[2018-05-03] MEDS: Piperacillin/Tazobactam 3.375 GM in 0.9 % Sodium Chloride Mini Bag 100 ML IVPB SCH ×2 (08:29→16:21)
[2018-05-03] MEDS: hydroCHLOROthiazide 25 MG TABLET PO SCH (08:31)
[2018-05-03] MEDS: Folic Acid 1 MG TABLET PO SCH (08:31)
[2018-05-03] MEDS: Famotidine 20 MG TABLET PO SCH ×2 (08:31→21:55)
[2018-05-03] MEDS: Budesonide/Formoterol 160/4.5 1 PUFF INH IH SCH ×2 (10:49→22:25)
[2018-05-03] MEDS: Ipratropium/Albuterol Neb 3 ML IH PRN ×2 (10:55→15:39)
[2018-05-03] MEDS ORDERED: Ipratropium/Albuterol Neb 3 ML IH SCH (21:00)
[2018-05-03] MEDS: Heparin 25,000 UNIT/500 ML D5W 25,000 UNIT/500 ML BAG IVC SCH (21:55)
[2018-05-03] MEDS: traZODone 50 MG TABLET PO PRN (21:59)
[2018-05-03] MEDS: Ipratropium/Albuterol Neb 3 ML IH SCH (22:25)
[2018-05-04] MEDS: methylPREDNISolone 125 MG/2 ML VIAL IVP SCH ×3 (00:29→16:04)
[2018-05-04] MEDS: Piperacillin/Tazobactam 3.375 GM in 0.9 % Sodium Chloride Mini Bag 100 ML IVPB SCH ×3 (00:30→16:03)
[2018-05-04] MEDS: Ipratropium/Albuterol Neb 3 ML IH SCH ×4 (04:12→22:29)
--- NOTE | 2018-05-04 08:03 | Internal Med Progress Note ---
<Arnaldo Bartlett - Last Filed: 05/04/18 15:26> Hospitalist Progress Note - Encounter Date of Encounter: 05/04/18 Time of Encounter: 09:36 - Subjective Interval History: Patient seen and examined resting comfortably in bed. Patient denies worsening shortness of breath. Patient remains on heparin drip at this time for acute PE. Will stop heparin and start Xarelto after 2 hours. Patient is eager to go home and inquiring about switching antibiotics from IV to oral regimen when able. He has not had a bowel movement yet and was started on Colace. - Exam Vitals: Temp Pulse Resp BP Pulse Ox 98 F 68 16 112/61 95 05/04/18 06:56 05/04/18 06:56 05/04/18 06:56 05/04/18 06:56 05/04/18 06:56 Exam: General appearance: Present: cooperative, A&O X 3, no acute distress, awake, pleasant, resting comfortably in bed Head exam: Present: atraumatic, normocephalic Eye exam: Present: EOMI, conjuntiva pink, sclera anicteric ENT exam: Present: mucous membranes moist Neck exam: Present: supple, trachea midline. Respiratory exam: Present: CTAB. Absent: accessory muscle use, wheezes Cardiovascular exam: Present: RRR, +S1, +S2. Absent: diastolic murmur, gallop, rubs, systolic murmur GI/Abdominal exam: Present: normal bowel sounds, soft, no peritoneal signs. Absent: distended, tenderness Extremities exam: Present: warm, radial pulses palpable and symmetrical. Absent: calf tenderness, cyanotic, pedal edema Neurological exam: Present: CN II-XII intact, oriented X3, no focal deficits. Absent: facial droop, speech deficit Psychiatric exam: Present: normal affect, normal mood Skin exam: Present: dry, warm - Assessment and Plan (1) Pulmonary emboli Current Visit: Yes Status: Acute Assessment and Plan: Likely due to recent hospitalization from recent pneumonia and immobilization CTA: acute PE in RUL; no saddle embolism, evidence of R heart strain, or pulmonary infarct; ground glass opacities consistent with prior pneumonia CXR: Interval development of linear opacity in the right midlung with slightly increased right infrahilar opacity Echo revealed LVEF 55-60%, unable to estimate RV S/P, no evidence of pulmonary hypertension Pulmonology following Patient remains on heparin drip at this time for acute PE. Will stop heparin and start Xarelto after 2 hours. Continue Xarelto 15 mg twice a day for 21 days, then switched to Xarelto 20 mg daily for 3 months duration of therapy. (2 month supply of Xarelto 20 mg tablets prescription already E- prescribed to patient's pharmacy to be able to perform hernandez check) (2) Pneumonia Current Visit: Yes Status: Suspected Assessment and Plan: Pt was recently admitted to the hospital in March 2018 and diagnosed with Pseudmonas pneumonia which was attributed to his history of being on CPAP at night and history of Enbrel for psoriatic arthritis. Previously on Doxycycline, augmentin, and prednisone. Chest x-ray shows increased right infrahilar opacity Continue empiric vancomycin and Zosyn day 3 Sputum culture revealed multiple epithelial cells ID following, recommended continuing current antibiotics until the cultures are back and hopefully we can de-escalate soon, defer to ID (3) Chronic respiratory failure Current Visit: No Status: Chronic Assessment and Plan: Patient wears 3 L supplemental oxygen at night along with CPAP. Continue monitoring (4) HTN (hypertension) Current Visit: No Status: Chronic Assessment and Plan: Blood pressure stable Continue hydrochlorothiazide. (5) Psoriatic arthritis Current Visit: No Status: Chronic Assessment and Plan: Continue to hold home Embrel Outpatient follow-up (6) Anemia Current Visit: Yes Status: Acute Assessment and Plan: Hemoglobin dropped from 13.7-->11.6 No signs of active bleeding Continue monitoring DVT Prophylaxis: Heparin --> Xarelto - Time Spent with Patient Total time spent is greater than 50% in coordination of care (as documented) at patient's floor/unit and/or counseling patient: Internal Medicine: Result - Labs CBC & Chem 7: 05/04/18 12:41 05/03/18 05:29 - ABG Interpretation ABG results: PT/INR, D-dimer PT 12.4 Seconds (9.4-12.1) H 05/02/18 14:56 - Impressions Impressions Echocardiogram 05/03/18 15:04 Impressions: Technically adequate exam. LVEF 55-60%. Normal right ventricular structure and function. No significant valvular dysfunction. Unable to estimate RVSP due to lack of TR jet. Consult Discharge Plan - Plan Referrals: Jame Trivedi, [Primary Care Provider] - <Miah Freitas - Last Filed: 05/04/18 18:05> Hospitalist Progress Note - Exam Vitals: Temp Pulse Resp BP Pulse Ox 98 F 74 20 115/58 94 05/04/18 16:05 05/04/18 16:05 05/04/18 16:38 05/04/18 16:05 05/04/18 16:38 - Assessment and Plan (1) Pneumonia Current Visit: Yes Status: Suspected (2) Psoriatic arthritis Current Visit: No Status: Chronic (3) HTN (hypertension) Current Visit: No Status: Chronic (4) Chronic respiratory failure Current Visit: No Status: Chronic (5) Pulmonary emboli Current Visit: Yes Status: Acute (6) Anemia Current Visit: Yes Status: Acute - Time Spent with Patient Total time spent is greater than 50% in coordination of care (as documented) at patient's floor/unit and/or counseling patient: Internal Medicine: Result - Labs CBC & Chem 7: 05/04/18 12:41 05/03/18 05:29 Labs: Short CBC 05/04/18 Range/Units 12:41 Hgb 11.6 L (12.9-16.9) g/dL Hct 34.8 L (37.5-50.1) % - ABG Interpretation ABG results: PT/INR, D-dimer PT 12.4 Seconds (9.4-12.1) H 05/02/18 14:56 - Attending Attestation I examined this patient and my medical decision-making was reviewed with the Resident Physician on 05/04/18. I agree with the documented findings, disposition and treatment plan as described except to the extent set forth below. 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 He remains moderate to high risk. Dr Ocampo is doing better. He is up and walking on the floor. No fever or chills. Less cough. Exam alert Comfortable Mucus membranes dry Heart not tachy No wheeze I/P 1. PE 2. Possible PNA Further diagnoses and plan as above. H/H has decreased - recheck tomorrow. <DhruvArnaldo - Last Filed: 05/04/18 15:26> (1) Pulmonary emboli Qualifiers: Pulmonary embolism type: other Chronicity: acute Acute cor pulmonale presence: without acute cor pulmonale Qualified Code(s): I26.99 - Other pulmonary embolism without acute cor pulmonale (2) Pneumonia Qualifiers: Pneumonia type: due to Pseudomonas Laterality: right Lung location: middle lobe of lung Qualified Code(s): J15.1 - Pneumonia due to Pseudomonas (3) Chronic respiratory failure Qualifiers: Respiratory failure complication: hypoxia Qualified Code(s): J96.11 - Chronic respiratory failure with hypoxia (4) HTN (hypertension) Qualifiers: Hypertension type: essential hypertension Qualified Code(s): I10 - Essential (primary) hypertension <Miah Freitas - Last Filed: 05/04/18 18:05> (1) Pneumonia Qualifiers: Pneumonia type: due to Pseudomonas Laterality: right Lung location: middle lobe of lung Qualified Code(s): J15.1 - Pneumonia due to Pseudomonas (3) HTN (hypertension) Qualifiers: Hypertension type: essential hypertension Qualified Code(s): I10 - Essential (primary) hypertension (4) Chronic respiratory failure Qualifiers: Respiratory failure complication: hypoxia Qualified Code(s): J96.11 - Chronic respiratory failure with hypoxia (5) Pulmonary emboli Qualifiers: Pulmonary embolism type: other Chronicity: acute Acute cor pulmonale presence: without acute cor pulmonale Qualified Code(s): I26.99 - Other pulmonary embolism without acute cor pulmonale (6) Anemia Qualifiers: Anemia type: unspecified type Qualified Code(s): D64.9 - Anemia, unspecified
[2018-05-04] MEDS: Famotidine 20 MG TABLET PO SCH ×2 (09:22→20:21)
[2018-05-04] MEDS: hydroCHLOROthiazide 25 MG TABLET PO SCH ×2 (09:23→20:34)
[2018-05-04] MEDS: Folic Acid 1 MG TABLET PO SCH (09:23)
[2018-05-04] MEDS: Budesonide/Formoterol 160/4.5 1 PUFF INH IH SCH ×2 (10:15→22:29)
[2018-05-04] MEDS ORDERED: *HR* Rivaroxaban 15 MG TABLET PO SCH (11:45)
[2018-05-04 13:10] LABS: Hematocrit 34.8 % (37.5-50.1); Hemoglobin 11.6 g/dL (12.9-16.9)
[2018-05-04] MEDS ORDERED: *HR* Methotrexate 2.5 MG TABLET PO SCH (17:30)
[2018-05-04] MEDS ORDERED: Aminoglycoside Consult 1 EACH MC ONE (18:53)
[2018-05-04] MEDS ORDERED: *HR* Ticagrelor 90 MG TABLET PO ONE (19:08)
[2018-05-04] MEDS ORDERED: Aspirin 325 MG TABLET PO ONE (19:09)
--- NOTE | 2018-05-04 19:13 | Event Note ---
Date of Encounter: 05/04/18 Time of Encounter: 18:30 Dr Ocampo had episode of substernal chest pain radiating to jaw at about 5PM. Last half hour. Was diaphoretic and clammy. Asymptomatic now. Exam Heart reg with no murmur EKG - subtle ST changes laterally I/P 1. Unstable angina- ASA, Brilinta, troponins, EKGs. NPO midnight. Cardiology eval.
[2018-05-04] MEDS ORDERED: Aspirin 325 MG TABLET PO STA (19:21)
[2018-05-04] MEDS ORDERED: Nitroglycerin 25 MG/250 ML INFUS..BTL IVC SCH (19:30)
[2018-05-04] MEDS ORDERED: Nitroglycerin 25 MG/250 ML INFUS..BTL IVC ONE (19:39)
[2018-05-04] MEDS: traZODone 50 MG TABLET PO PRN (22:11)
[2018-05-05 00:31] LABS: Hematocrit 33.7 % (37.5-50.1); Hemoglobin 11.2 g/dL (12.9-16.9)
[2018-05-05] MEDS: methylPREDNISolone 125 MG/2 ML VIAL IVP SCH ×3 (00:32→16:19)
[2018-05-05] MEDS: Piperacillin/Tazobactam 3.375 GM in 0.9 % Sodium Chloride Mini Bag 100 ML IVPB SCH ×2 (00:33→08:40)
[2018-05-05] MEDS: Ipratropium/Albuterol Neb 3 ML IH SCH ×3 (04:41→16:20)
[2018-05-05 06:31] LABS: Basophils % 0.1 %; Hematocrit 33.1 % (37.5-50.1); Hemoglobin 11.2 g/dL (12.9-16.9); Immature Granulocytes % 1.1 % (0-4); Lymphocytes # 0.9 K/mcL (0.6-4.6); Lymphocytes % 7.7 %; Mean Corpuscular HGB Conc 33.8 g/dL (31.6-35.5); Mean Corpuscular Hemoglobin 31.7 pg (28.0-33.3); Mean Corpuscular Volume 93.8 fL (83.0-100.0); Mean Platelet Volume 9.2 fL (9.4-12.4); Monocytes # 0.3 K/mcL (0.0-1.3); Monocytes % 2.9 %; Neutrophils # 9.9 K/mcL (1.6-8.9); Platelet Count 222 K/mcL (140-400); Red Blood Count 3.53 M/mcL (4.19-5.50); Red Cell Distribution Width 13.3 % (11.5-14.5); Segmented Neutrophils % 88.2 %
[2018-05-05 06:50] LABS: BUN/Creatinine Ratio 19 (6-26); Blood Urea Nitrogen 17 mg/dL (8-23); Calcium 9.4 mg/dL (8.6-10.3); Carbon Dioxide 23 mEq/L (23-29); Chloride 108 mEq/L (98-107); Glucose 145 mg/dL (70-105); Osmolality,Calculated 294 (280-300); Potassium 3.6 mEq/L (3.5-5.1); Sodium 140 mEq/L (136-145); eGFR For Non-African Americans > 60 (> 60)
[2018-05-05] MEDS ORDERED: *HR* Heparin 5,000 UNIT/ML VIAL IVP ONE (08:42)
[2018-05-05] MEDS: Famotidine 20 MG TABLET PO SCH (08:42)
[2018-05-05] MEDS ORDERED: *HR* Heparin 5,000 UNIT/ML VIAL IVP PRN ×2 (08:42)
[2018-05-05] MEDS ORDERED: Heparin 25,000 UNIT/500 ML D5W 25,000 UNIT/500 ML BAG IVC SCH (08:45)
--- NOTE | 2018-05-05 08:59 | Internal Med Progress Note ---
Hospitalist Progress Note - Subjective Interval History: Laying comfortable in bed. Had chest pain with neck radiation and diaphoresis yesterday that has resolved since nitro drip started. Had episode of SOB this morning but none since. He denies subjective fever/chills, blurry vision/diplopia, dizziness/lightheadedness, cough, chest pain, diaphoresis, N/V, abdominal pain. - Exam Vitals: Temp Pulse Resp BP Pulse Ox 97.7 F 72 12 134/67 93 05/05/18 07:09 05/05/18 07:09 05/05/18 07:09 05/05/18 05:55 05/05/18 07:09 Exam: General: Awake, alert, no signs of acute distress or toxicity. Head: Atraumatic, normocephalic ENT: EOMi, pupils equal and round Neck: supple, trachea midline Chest: Symmetric chest rise, non tender Cardiovascular: RRR, +S1/S2, no murmurs, rubs, heaves, thrills appreciated, no edema, radial pulse 2+ bilat Respiratory: Normal resp effort, CTAB, no wheezes, rhonci, rales appreciated. Abdomen: Soft, non tender, non distended, no guarding, rigidity Extremities: [place], warm, dry, intact - Assessment and Plan (1) Pneumonia Current Visit: Yes Status: Suspected Assessment and Plan: Pt was recently admitted to the hospital in March 2018 and diagnosed with Pseudmonas pneumonia which was attributed to his history of being on CPAP at night and history of Enbrel for psoriatic arthritis. Previously on Doxycycline, augmentin, and prednisone. Chest x-ray shows increased right infrahilar opacity Continue empiric vancomycin and Zosyn day 4 per ID Sputum culture revealed multiple epithelial cells and not cultured. ID following, recommended continuing current antibiotics until the cultures are back and hopefully we can de-escalate soon, defer to ID (2) Psoriatic arthritis Current Visit: No Status: Chronic Assessment and Plan: Continue to hold home Embrel Outpatient follow-up (3) HTN (hypertension) Current Visit: No Status: Chronic Assessment and Plan: Blood pressure stable Continue hydrochlorothiazide. (4) Chronic respiratory failure Current Visit: No Status: Chronic (5) Pulmonary emboli Current Visit: Yes Status: Acute (6) Anemia Current Visit: Yes Status: Acute - Time Spent with Patient Total time spent is greater than 50% in coordination of care (as documented) at patient's floor/unit and/or counseling patient: Internal Medicine: Result - Labs CBC & Chem 7: 05/05/18 06:11 05/05/18 06:11 Labs: Short CBC 05/04/18 05/05/18 05/05/18 Range/Units 12:41 00:03 06:11 WBC 11.2 H (4.3-11.1) K/mcL Hgb 11.6 L 11.2 L 11.2 L (12.9-16.9) g/dL Hct 34.8 L 33.7 L 33.1 L (37.5-50.1) % Plt Count 222 (140-400) K/mcL Neutrophils # 9.9 H (1.6-8.9) K/mcL BMP 05/05/18 06:11 Sodium 140 Potassium 3.6 Chloride 108 H Carbon Dioxide 23 BUN 17 Creatinine 0.91 Glucose 145 H Calcium 9.4 Cardiac Enzymes 05/04/18 05/05/18 05/05/18 Range/Units 18:28 00:03 06:11 Troponin I < 0.03 < 0.03 < 0.03 (< 0.04) ng/mL - ABG Interpretation ABG results: PT/INR, D-dimer PT 12.4 Seconds (9.4-12.1) H 05/02/18 14:56 Consult Discharge Plan - Plan Referrals: Jame Trivedi DO [Primary Care Provider] - (1) Pneumonia Qualifiers: Qualified Code(s): J15.1 - Pneumonia due to Pseudomonas (3) HTN (hypertension) Qualifiers: Qualified Code(s): I10 - Essential (primary) hypertension (4) Chronic respiratory failure Qualifiers: Qualified Code(s): J96.11 - Chronic respiratory failure with hypoxia (5) Pulmonary emboli Qualifiers: Qualified Code(s): I26.99 - Other pulmonary embolism without acute cor pulmonale (6) Anemia Qualifiers: Qualified Code(s): D64.9 - Anemia, unspecified
--- NOTE | 2018-05-05 09:18 | Cardiology Consult Note ---
<Paulina Jo - Last Filed: 05/05/18 09:20> Date of Encounter: 05/05/18 Time of Encounter: 08:30 Assessment and Plan (1) Chest pain Current Visit: Yes Status: Acute x2 episodes of chest pain 05/04/18 in the setting of acute PE and recurrent PNA. Troponin negative x4. ECG without acute ischemic changes. Risk factors for CAD include: HTN, prior tobacco use. TTE 05/04/18: LVEF 55-60%, normal RV structure and function, no significant valvular dysfunction, no PH, normal wall motion. Given acute PE, would not recommend interruption in anticoagulation for invasive ischemic evaluation; again troponin negative x4, atypical chest pain symptoms. Would consider close outpatient follow-up with PCP, can consider nuclear stress test. Ideally recommend 3 months of uninterrupted anticoagulation per guidelines. Will stop IV heparin gtt and transition back to Xarelto 15 mg BID (PE dosing). Patient may have Cardiac diet. Risk factor modification including heart healthy diet, daily exercise. Qualifiers: Chest pain type: precordial pain Qualified Code(s): R07.2 - Precordial pain (2) Pulmonary emboli Current Visit: Yes Status: Acute Transition back to Xarelto. Mgmt per Hospitalist service. Qualifiers: Pulmonary embolism type: other Chronicity: acute Acute cor pulmonale presence: without acute cor pulmonale Qualified Code(s): I26.99 - Other pulmonary embolism without acute cor pulmonale (3) Recurrent pneumonia Current Visit: Yes Status: Acute Discussion w patient/family: The assessment and plan as outlined above was discussed with the patient and/or family members who expressed understanding and agreement. All questions were answered. Thank you for involving us in the care of your patient. Please call with any questions. The patient will be discussed and reviewed with Dr. Woodard; changes to be made accordingly. History of Present Illness Consult date: 05/05/18 Requesting physician: Miah Freitas Consult reason: Chest pain Chief complaint: Chest pain History of present illness: Mr. Ocampo is a 63 year old male with PMHx significant of HTN, psoriatic arthritis, prior tobacco abuse who presented to the ED with complaints of shortness of breath; CTA confirmed acute PE (RUL) in addition to recurrent/residual LLL PNA. Symptoms prior to admission including subjective fevers as high as 102. Of note, prior to current admission, patient had x2 previous hospitalizations within a month for sepsis secondary to PNA--pseudomonas. Patient has been an inpatient for several days, ID following in addition. Recently transitioned from heparin gtt to Xarelto--PE dosing. Patient reports episode of neck fullness yesterday afternoon, lasted minutes and resolved without intervention; around 5 PM reports chest fullness associated with diaphoresis and shortness of breath that occurred at rest--patient was then started on NTG gtt and Cardiology was consulted for further recommendations. Past Med Surg Social Fam HX - Past Medical History Attestation: Yes The following information was validated with the patient. Source: patient Medical history: arthritis (Psoriatic), asthma, COPD, GERD, hypertension Additional medical history: psoriatic arthritis, esophagitis Psychiatric history: no psych history - Past Surgical History Surgical History: herniorrhaphy, orthopedic, other Additional surgical history: miniscus right knee, hernia repair - Social History Smoking Status: Former smoker Smokeless Tobacco Status: No Alcohol use: rarely Drug use: none - Family History Mother Family Member Ethnicity: Non- Living Status: Hx Family Cardiac Disorders: Yes (HTN, A-FIB, CAD) Hx Family Respiratory Disorders: No Hx Family Cancer: Yes (melanoma) Hx Family GI Disorders: No Hx Family Endocrine Disorder: No Hx Family Neuromuscular Disorders: No Hx Family Neurologic Disorders: Yes (DEMENTIA) Hx Family HEENT Disorders: No Hx Family Autoimmune Disorders: No Father Living Status: Hx Family Cardiac Disorders: Yes (HTN) Hx Family Neuromuscular Disorders: Yes (Parkinsons) Medications and Allergies RX: Albuterol Sulfate [Ventolin Hfa] 2 puff IH Q4-6H PRN 03/25/18 [History] RX: Etanercept [Enbrel] 50 mg SQ PALMER 03/25/18 [History] RX: Folic Acid 1 mg PO DAILY 03/25/18 [History] RX: Methotrexate [Otrexup] 15 mg PO PALMER 03/25/18 [History] RX: Montelukast [Singulair] 10 mg PO DAILY 03/25/18 [History] RX: Olmesartan/Hydrochlorothiazide [Olmesartan-Hctz 40-25 mg Tab] 1 tab PO DAILY 03/25/18 [History] RX: Tiotropium [place] [Spiriva Respimat] 1 puff IH DAILY 03/25/18 [History] RX: Trazodone HCl 100 mg PO HS PRN 03/25/18 [History] RX: raNITIdine HCl [Zantac] 150 mg PO BID 03/25/18 [History] Rivaroxaban [Xarelto] 20 mg PO QDPC #60 tablet 05/03/18 [Rx] Allergy/AdvReac Type Severity Reaction Status Date / Time azithromycin [From Zithromax] Allergy Hives Verified 03/25/18 09:13 levofloxacin [From Levaquin] Allergy Difficulty Verified 03/25/18 09:13 Breathing All Systems Review: The remainder of the systems were reviewed and are negative - Cardiovascular Cardiovascular: as per HPI Physical Examination Vital Signs, Last 4 Hours Temp Pulse Resp BP Pulse Ox 05/05/18 07:09 97.7 F 72 12 93 05/05/18 05:55 97.8 F 80 16 134/67 93 General: Conversant, No Apparent Distress HEENT: Atraumatic, Normocephaly, Mucus Membranes Moist Neck: No JVD, Normal carotid pulses Cardiac: Reg Rate and Rhythm, Normal S1 and S2, No Murmur Lungs: Normal Breath Sounds, No Wheeze, Rales, Rhonchi Neuro: Alert and responsive, No focal deficits noted Abdomen: Soft, Non-Tender Skin: No rashes noted on visualized skin Musculoskeletal: No Chest Wall Tenderness Extremities: No Clubbing, No Cyanosis, No Edema, Normal Pulses Results 05/05/18 06:11 05/05/18 06:11 Lab Results 05/04/18 05/04/18 05/05/18 12:41 18:28 00:03 WBC Hgb 11.6 L 11.2 L Hct 34.8 L 33.7 L Plt Count Sodium Potassium Chloride Carbon Dioxide BUN Creatinine Glucose Calcium Troponin I < 0.03 05/05/18 05/05/18 05/05/18 00:03 06:11 06:11 WBC 11.2 H Hgb 11.2 L Hct 33.1 L Plt Count 222 Sodium Potassium Chloride Carbon Dioxide BUN Creatinine Glucose Calcium Troponin I < 0.03 < 0.03 05/05/18 06:11 WBC Hgb Hct Plt Count Sodium 140 Potassium 3.6 Chloride 108 H Carbon Dioxide 23 BUN 17 Creatinine 0.91 Glucose 145 H Calcium 9.4 Troponin I Active Medications Acetaminophen (Tylenol) 650 mg PO Q6HR PRN PRN Reason: Mild Pain/Fever Stop: 04/27/19 14:58 Last Admin: 05/02/18 15:17 Dose: 650 mg Albuterol/Ipratropium (Duoneb) 3 ml IH [id number] [facility] Stop: 11/02/18 22:01 Last Admin: 05/05/18 04:41 Dose: 3 ml Budesonide/Formoterol Fumarate (Symbicort) 2 puff IH BIDR [facility]; Protocol Stop: 11/02/18 10:01 Last Admin: 05/04/18 22:29 Dose: 2 puff Docusate Sodium (Colace) 100 mg PO DAILY PRN; Protocol PRN Reason: Constipation Stop: 11/02/18 17:11 Last Admin: 05/03/18 21:55 Dose: 100 mg Famotidine (Pepcid) 20 mg PO BID [facility] Stop: 11/01/18 21:01 Last Admin: 05/05/18 08:42 Dose: 20 mg Hydrochlorothiazide (Hydrochlorothiazide) 25 mg PO DAILY [facility] Stop: 11/01/18 09:01 Last Admin: 05/04/18 20:34 Dose: Not Given Piperacillin Sod/Tazobactam (Sod 3.375 gm/ Sodium Chloride) 100 mls @ 25 mls/hr IVPB Q8HR [facility] Stop: 11/02/18 00:01 Last Admin: 05/05/18 08:40 Dose: 25 mls/hr Vancomycin HCl 1,500 mg/ (Sodium Chloride) 250 mls @ 166.67 mls/hr IVPB Q12H [facility] Stop: 11/03/18 04:01 Last Admin: 05/05/18 04:18 Dose: 166.67 mls/hr Nitroglycerin (Nitroglycerin Premix 25 Mg/250 Ml) 25 mg in 250 mls @ 3 mls/hr IVC .Q24H [facility]; Protocol Stop: 11/03/18 19:31 Last Titration: 05/05/18 09:18 Dose: 5 mcg/min, 3 mls/hr Losartan Potassium (Cozaar) 100 mg PO DAILY [facility] Stop: 11/02/18 09:01 Last Admin: 05/04/18 09:22 Dose: 100 mg Methylprednisolone (Solu-Medrol) 60 mg IVP Q8HR [facility] Stop: 11/02/18 00:01 Last Admin: 05/05/18 08:40 Dose: 60 mg Montelukast Sodium (Singulair) 10 mg PO DAILY [facility] Stop: 11/02/18 09:01 Last Admin: 05/05/18 08:42 Dose: 10 mg Naloxone HCl (Narcan) 0.4 mg IVP Q2MIN PRN PRN Reason: SEE COMMENTS Stop: 11/01/18 14:58 Ondansetron HCl (Zofran) 4 mg IVP Q6HR PRN PRN Reason: Nausea And Vomiting Stop: 11/01/18 14:58 Rivaroxaban (Xarelto) 15 mg PO BIDWM [facility] Stop: 11/04/18 09:31 Trazodone HCl (Trazodone) 100 mg PO HS PRN PRN Reason: Sleep Stop: 11/01/18 17:31 Last Admin: 05/04/18 22:11 Dose: 100 mg - Imaging and Cardiology Other Results: 12 hour tele: avg HR=72 SR. No acute events noted. - EKG Interpretation EKG results cardiology: personally reviewed Consult Discharge Plan - Plan Referrals: Jame Trivedi DO [Primary Care Provider] - <Dariel Woodard - Last Filed: 05/05/18 16:52> - Attending Attestation Patient was seen and evaluated independently by me. Findings, assessment and plan were discussed in detail with patient, questions anwered. Agree with nurse practitioner's documentation. Addition as follows, A: Atypical angina at the setting of acute PE with residual PNA, no dynamic ECG changes with neg trop, etiology not definitive No exertional angina at baseline HTN, psoriatic arthritis, ho tobacco use Ho eosinophilic esophagitis No bleeding diasthesis P: c/w xarelto, ASA NTG SL prn if chest pain recurs, ask Dr Ocampo to come to ED and will eval for LHC if no chest pain, repeat CTA 3 months; and if PE resolves, will stress test Dariel Woodard MD, PhD Assessment and Plan Discussion w patient/family: The assessment and plan as outlined above was discussed with the patient and/or family members who expressed understanding and agreement. All questions were answered. Thank you for involving us in the care of your patient. Please call with any questions. History of Present Illness History of present illness: Mr. Ocampo is a 63 year old male All Systems Review: The remainder of the systems were reviewed and are negative Physical Examination Vital Signs, Last 4 Hours Temp Pulse Resp BP Pulse Ox 05/05/18 15:05 97.6 F 81 12 134/71 94 Results 05/05/18 06:11 05/05/18 06:11 Lab Results 05/04/18 05/05/18 05/05/18 18:28 00:03 00:03 WBC Hgb 11.2 L Hct 33.7 L Plt Count Sodium Potassium Chloride Carbon Dioxide BUN Creatinine Glucose Calcium Troponin I < 0.03 < 0.03 05/05/18 05/05/18 05/05/18 06:11 06:11 06:11 WBC 11.2 H Hgb 11.2 L Hct 33.1 L Plt Count 222 Sodium 140 Potassium 3.6 Chloride 108 H Carbon Dioxide 23 BUN 17 Creatinine 0.91 Glucose 145 H Calcium 9.4 Troponin I < 0.03
[2018-05-05] MEDS: *HR* Rivaroxaban 15 MG TABLET PO SCH ×2 (10:42→16:21)
[2018-05-05] MEDS: Budesonide/Formoterol 160/4.5 1 PUFF INH IH SCH (10:57)
--- NOTE | 2018-05-05 15:12 | Infectious Disease Progress No ---
Date of Encounter: 05/05/18 Time of Encounter: 09:50 - Assessment and Plan (1) SIRS (systemic inflammatory response syndrome) Current Visit: Yes Status: Acute - On presentation, met 2/4 sirs criteria with leukocytosis of 13.5 and tachypnea of 24 - Also reports fevers at home of 101.7 MAXIMUM TEMPERATURE, afebrile since presentation - Possible source of infection includes pulmonary, however these findings can also be explained by acute pulmonary embolism as well as steroid use - Causative organism: Unclear - Patient has met 0/4 sirs criteria since 05/03 - Legionella antigen negative - MRSA nasal swab negative - Sputum culture 05/03 did not meet criteria for culture - He does have a history of Pseudomonas pneumonia confirmed by sputum culture on 03/25/18, pansensitive at that time. - Previous cultures including blood cultures, RSV, Cryptococcus negative in April 2018 - He is immunocompromised taking home Enbrel and methotrexate for psoriatic arthritis. These have been held since admission - CXR on 05/02 showed no acute cardiopulmonary process - CTA on 05/02 showed acute pulmonary embolism in the right upper lobe with no evidence of right heart strain or infarct. Also noted were minimal patchy groundglass opacity in the left lung base which likely represents residual of left lower lobe pneumonia on 03/27/18 - Venous Doppler negative for DVT on left - He was started on empiric vancomycin and Zosyn emergency department, day 4 - Clinically reports improvement Plan - At this time, symptoms and laboratory findings appear to be improving and can be explained by alternative etiologies rather than pneumonia. - CTA was reviewed with pulmonology who agrees that this is less likely infection at this time and more likely a result of PE, viral exanthem, reactive leukocytosis, inflammation from psoriatic arthritis in the setting of recent steroid use - No obvious bacterial infection at this time. We will discontinue vancomycin and Zosyn and monitor (2) Psoriatic arthritis Current Visit: Yes Status: Chronic History of psoriatic arthritis for which she takes methotrexate and Enbrel Patient reports relatively good control however he has noticed some mild incre asing joint pain since holding immunosuppressive medications Does follow with Dr. Cormier at [facility] Continue management as outpatient Continue to hold Enbrel and methotrexate while inpatient. This was discussed with Dr. Cormier (3) Immunocompromised Current Visit: No Status: Chronic (4) Pulmonary emboli Current Visit: Yes Status: Acute As demonstrated on CTA on 05/02/18 In the setting of recent hospitalization and pneumonia with mobilization. No signs of right heart strain Pulmonology following Possible etiology for tachypnea and leukocytosis Currently on heparin drip with plans to transition to Xarelto Further management per primary team Qualifiers: Pulmonary embolism type: other Chronicity: acute Acute cor pulmonale presence: without acute cor pulmonale Qualified Code(s): I26.99 - Other pulmonary embolism without acute cor pulmonale (5) Allergy to multiple antibiotics Current Visit: Yes Status: Chronic Allergies to levofloxacin and azithromycin Had angioedema and hives - Subjective Interval history: Patient was seen and examined up at since morning. Overall he states that he is doing well and his symptoms are improving. He states that upon presentation, he was experiencing some shortness of breath, fevers with a MAXIMUM TEMPERATURE of 101.7, productive cough with thick green sputum, diaphoresis and chest pain. He states that most of symptoms have resolved and his cough is now nonproductive in nature. He has been afebrile since admission. He does state that his initial presenting symptoms were consistent with his previous diagnosis of pneumonia. His chest pain that he experienced last evening has since resolved with nitroglycerin drip. Primary team is aware of the symptoms. Infect Dis PN-Objective Data - Labs CBC & Chem 7: 05/05/18 06:11 05/05/18 06:11 Labs: Laboratory Results - last 24 hr 05/04/18 05/05/18 05/05/18 18:28 00:03 00:03 WBC RBC Hgb 11.2 L Hct 33.7 L MCV MCH MCHC RDW Plt Count MPV Immature Gran % Seg Neutrophils % Lymphocytes % Monocytes % Eosinophils % Basophils % Neutrophils # Lymphocytes # Monocytes # Eosinophils # Basophils # Sodium Potassium Chloride Carbon Dioxide BUN Creatinine Est GFR ( Amer) Est GFR (Non-Af Amer) BUN/Creatinine Ratio Glucose Calculated Osmolality Calcium Troponin I < 0.03 < 0.03 Blood Type Antibody Screen 05/05/18 05/05/18 05/05/18 06:11 06:11 06:11 WBC 11.2 H RBC 3.53 L Hgb 11.2 L Hct 33.1 L MCV 93.8 MCH 31.7 MCHC 33.8 RDW 13.3 Plt Count 222 MPV 9.2 L Immature Gran % 1.1 Seg Neutrophils % 88.2 Lymphocytes % 7.7 Monocytes % 2.9 Eosinophils % 0.0 Basophils % 0.1 Neutrophils # 9.9 H Lymphocytes # 0.9 Monocytes # 0.3 Eosinophils # 0.0 Basophils # 0.0 Sodium 140 Potassium 3.6 Chloride 108 H Carbon Dioxide 23 BUN 17 Creatinine 0.91 Est GFR ( Amer) > 60 Est GFR (Non-Af Amer) > 60 BUN/Creatinine Ratio 19 Glucose 145 H Calculated Osmolality 294 Calcium 9.4 Troponin I < 0.03 Blood Type Antibody Screen 05/05/18 06:11 WBC RBC Hgb Hct MCV MCH MCHC RDW Plt Count MPV Immature Gran % Seg Neutrophils % Lymphocytes % Monocytes % Eosinophils % Basophils % Neutrophils # Lymphocytes # Monocytes # Eosinophils # Basophils # Sodium Potassium Chloride Carbon Dioxide BUN Creatinine Est GFR ( Amer) Est GFR (Non-Af Amer) BUN/Creatinine Ratio Glucose Calculated Osmolality Calcium Troponin I Blood Type A POSITIVE Antibody Screen NEGATIVE Cultures: Cultures 05/03/18 12:00 Sputum Culture - Final Sputum 05/03/18 05:03 Legionella Antigen - Final Urine,Clean Catch Serology 05/03/18 Range/Units 11:48 Nasal Screen MRSA (PCR) Negative (Negative) Exam - Constitutional Vitals: Temp Pulse Resp BP Pulse Ox 97.7 F 88 12 128/66 90 05/05/18 11:46 05/05/18 11:46 05/05/18 11:46 05/05/18 11:46 05/05/18 11:46 Exam: Gen.: Vitals noted. No acute distress. AAOx3, resting comfortably in bed HEENT: PERRL/EOMI, oropharynx clear, Normocephalic, atraumatic, MMM, normal conjunctiva Cardiac: RRR, no murmur, +S1/S2, some reproducible chest pain substernally Pulmonary: CTA bilaterally, no wheezes, rales or rhonchi, equal chest expansion Abdomen: soft, nontender, BS noted, no guarding, no rebound. MSK: ROM intact, no joint swelling in hands or wrists. No spinous process tenderness. Skin: No rashes observed Extremities: no BLE edema, nontender calf, no cyanosis or clubbing Neuro: A&Ox3, moves all extremities, no focal deficits Psych: Appropriate mood and behavior Consult Discharge Plan - Plan Referrals: Jame Trivedi DO [Primary Care Provider] - - Attending Attestation I examined this patient and my medical decision-making was reviewed with the Resident Physician. I agree with the documented findings, disposition and treatment plan as described except to the extent set forth below.
[2018-05-05 15:13] VITALS: BP 134/71
--- NOTE | 2018-05-05 16:29 | Pulmonology Progress Note ---
<Varsha Esquivelherman M - Last Filed: 05/05/18 16:56> Assessment and Plan (1) Pulmonary emboli Status: Acute (2) Pneumonia Status: Ruled-out (3) Acute exacerbation of chronic obstructive airways disease Status: Suspected Objective PUL Vital signs: Last Vital Signs Temp 97.6 F 05/05/18 15:05 Pulse 81 05/05/18 15:05 Resp 12 05/05/18 15:05 BP 134/71 05/05/18 15:05 Pulse Ox 94 05/05/18 15:05 Results - Laboratory Findings CBC and BMP: 05/05/18 06:11 05/05/18 06:11 PT/INR, D-dimer PT 12.4 Seconds (9.4-12.1) H 05/02/18 14:56 Abnormal lab findings: Abnormal lab results WBC 11.2 K/mcL (4.3-11.1) H 05/05/18 06:11 RBC 3.53 M/mcL (4.19-5.50) L 05/05/18 06:11 Hgb 11.2 g/dL (12.9-16.9) L 05/05/18 06:11 Hct 33.1 % (37.5-50.1) L 05/05/18 06:11 MPV 9.2 fL (9.4-12.4) L 05/05/18 06:11 Neutrophils # 9.9 K/mcL (1.6-8.9) H 05/05/18 06:11 Nucleated RBCs/100 WBC 0.1 /100 WBC (0) H 05/02/18 10:53 Reactive Lymphocytes Present (Not Present) A 05/02/18 10:53 PT 12.4 Seconds (9.4-12.1) H 05/02/18 14:56 Chloride 108 mEq/L (98-107) H 05/05/18 06:11 Glucose 145 mg/dL (70-105) H 05/05/18 06:11 Vancomycin Trough 11 mcg/mL (5-10) H 05/04/18 02:28 - Microbiology Findings Microbiology Findings: Microbiology, Last 48 Hours 05/03/18 12:00 Sputum Culture - Final Sputum - Clinical Findings Intake & Output: Intake & Output 05/05/18 05/05/18 05/05/18 07:59 15:59 23:59 Intake Total 100 / 100 326 / 326 Output Total 550 / 550 250 / 250 Balance -450 / -450 76 / 76 Weight 79.7 kg Consult Discharge Plan - Plan Instructions: Prednisone (By mouth), Nitroglycerin, Rapid Release (By mouth), Ipratropium/Albuterol (By breathing), Rivaroxaban (By mouth), Pulmonary Embolism (DC), Chronic Hypertension (DC), Anemia (GEN), Pneumonia (DC) Referrals: Genesis Esquivel MD [Partnered Physician] - Jame Trivedi DO [Primary Care Provider] - (please call and make a follow up appointment for 5-7 days) Prescriptions: Nitroglycerin 0.4 mg SL Q5MIN PRN #25 tab.subl PRN Reason: chest pain (no more than 3) Ipratropium/Albuterol Neb [Duoneb] 3 ml IH [id number] PRN #30 inhsol PRN Reason: trouble breathing PredniSONE [Deltasone] 20 mg PO DAILY 10 Days #10 tablet Rivaroxaban [Xarelto] 15 mg PO BID 21 Days #42 tablet Rivaroxaban [Xarelto] 20 mg PO DAILY 7 Days #7 tablet - Attending Attestation I examined this patient and my medical decision-making was reviewed with the Resident Physician. I agree with the documented findings, disposition and treatment plan as described except to the extent set forth below. Patient seen and examined. Labs, radiology, chart personally reviewed. Agree with resident's history and physical, assessment, plan with following comments: [employer]: Patient follows commands, Pulmonary: Acceptable oxygenation and ventilation and he is feeling better with better oxygenation. However because of recurrent chronic bronchitis and exa cerbation have discussed with him to start him on Daliresp and did send medicine to his pharmacy to start and if he tolerates that then I will increase the dose and he will let me know. He will need anticoagulation for about 3 months. Patient will follow-up as outpatient. Cardiovascular: stable <Nandini Lloyd - Last Filed: 05/05/18 21:49> Date of Encounter: 05/05/18 Time of Encounter: 13:30 Assessment and Plan (1) Pulmonary emboli Status: Acute Hemodynamically stable and oxygenating well CTA chest: acute PE of RUL, no saddle embolism, no evidence right heart strain, no pulmonary infarct Echo: LVEF 55-60%, no evidence of pulmonary HTN, unable to estimate RVSP Initial heparin gtt stopped, now on xarelto Will need to continue xarelto for 3 months Repeat chest CTA in 3 months Qualifiers: Pulmonary embolism type: other Chronicity: acute Acute cor pulmonale presence: without acute cor pulmonale Qualified Code(s): I26.99 - Other pulmonary embolism without acute cor pulmonale (2) Chronic respiratory failure Status: Chronic Continue inhalers Continue 3L supplemental oxygen at night with CPAP Outpatient follow up in pulmonology clinic [facility] to start as outpatient, consider increasing dose if well tolerated Qualifiers: Respiratory failure complication: hypoxia Qualified Code(s): J96.11 - Chronic respiratory failure with hypoxia (3) Pneumonia Status: Ruled-out Followed by ID Legionella antigen negative Empiric vancomycin and zosyn discontinued after 4 days Sputum culture showed epithelial cells and didn't meet criteria for culture Qualifiers: Pneumonia type: due to Pseudomonas Laterality: right Lung location: middle lobe of lung Qualified Code(s): J15.1 - Pneumonia due to Pseudomonas Subjective Principal diagnosis: Pulmonary emboli, PNA Interval history: Seen and examined at bedside today. He denies coughing and wheezing. Notes increased CLEMONS today after an episode of substernal chest pain and heaviness this morning. He reports similar chest pain occurred twice last night and radiated into his neck, causing him to become diaphoretic. Troponins were negative. No fevers, chills, nausea, vomiting, abdominal pain, lower extremity swelling. He does not have chest pain or shortness of breath at time of my exam. Objective PUL Vital signs: Last Vital Signs Temp 97.6 F 05/05/18 15:05 Pulse 81 05/05/18 15:05 Resp 12 05/05/18 15:05 BP 134/71 05/05/18 15:05 Pulse Ox 94 05/05/18 15:05 General appearance: no acute distress, alert Eyes: nonicteric ENT: oropharynx moist Neck: supple Effort: normal Cardiovascular: regular rate and rhythm Gastrointestinal: normoactive bowel sounds, soft, non-tender Integumentary: normal Extremities: no cyanosis, no edema, pink and warm, pulses normal Musculoskeletal: no deformities Gait: normal gait normal mental status, non-focal exam, pupils equal and round, CN II-XII normal mood appropriate, affect normal Results - Laboratory Findings CBC and BMP: 05/05/18 06:11 05/05/18 06:11 PT/INR, D-dimer PT 12.4 Seconds (9.4-12.1) H 05/02/18 14:56 Abnormal lab findings: Abnormal lab results WBC 11.2 K/mcL (4.3-11.1) H 05/05/18 06:11 RBC 3.53 M/mcL (4.19-5.50) L 05/05/18 06:11 Hgb 11.2 g/dL (12.9-16.9) L 05/05/18 06:11 Hct 33.1 % (37.5-50.1) L 05/05/18 06:11 MPV 9.2 fL (9.4-12.4) L 05/05/18 06:11 Neutrophils # 9.9 K/mcL (1.6-8.9) H 05/05/18 06:11 Nucleated RBCs/100 WBC 0.1 /100 WBC (0) H 05/02/18 10:53 Reactive Lymphocytes Present (Not Present) A 05/02/18 10:53 PT 12.4 Seconds (9.4-12.1) H 05/02/18 14:56 Chloride 108 mEq/L (98-107) H 05/05/18 06:11 Glucose 145 mg/dL (70-105) H 05/05/18 06:11 Vancomycin Trough 11 mcg/mL (5-10) H 05/04/18 02:28 - Microbiology Findings Microbiology Findings: Microbiology, Last 48 Hours 05/03/18 12:00 Sputum Culture - Final Sputum - Clinical Findings Intake & Output: Intake & Output 05/05/18 05/05/18 05/05/18 07:59 15:59 23:59 Intake Total 100 / 100 326 / 326 Output Total 550 / 550 250 / 250 Balance -450 / -450 76 / 76 Weight 79.7 kg
--- NOTE | 2018-05-05 16:36 | Discharge Summary ---
<Anthony Santiago - Last Filed: 05/05/18 16:33> - NOTES TO OUTPATIENT PROVIDER Notes to Outpatient Provider: Admitted for acute PE. Experienced anginal chest pain during admission. Cardiology eleceted not to do stress test or heart cath in setting of acute PE. Was discharged on xarelto, 10 days prednisone, duonebs and sublingual nitro. Will need repeat CTA chest in 3 months. Orders not resulted at time of discharge: Pending orders 05/05/18 00:30 EKG [ECG 12 lead ECG] [ECG] Routine 05/05/18 06:30 EKG [ECG 12 lead ECG] [ECG] Routine Date of Encounter: 05/05/18 Time of Encounter: 10:10 - Discharge Diagnosis (1) Pulmonary emboli Priority: Primary Status: Acute Assessment and Plan: -Likely due to recent hospitalization from recent pneumonia and immobilization -CTA: acute PE in RUL; no saddle embolism, evidence of R heart strain, or pulmonary infarct; ground glass opacities consistent with prior pneumonia -CXR: Interval development of linear opacity in the right midlung with slightly increased right infrahilar opacity -Echo revealed LVEF 55-60%, unable to estimate RV S/P, no evidence of pulmonary hypertension -Pulmonology following -Patient remains on heparin drip at this time for acute PE. Will stop heparin and start Xarelto after 2 hours. -Continue Xarelto 15 mg twice a day for 21 days, then switched to Xarelto 20 mg daily for 3 months duration of therapy. (2 month supply of Xarelto 20 mg tablets prescription already E- prescribed to patient's pharmacy to be able to perform hernandez check) -Cardiology recommends 3 month followup CTA chest. Qualifiers: Pulmonary embolism type: other Chronicity: acute Acute cor pulmonale presence: without acute cor pulmonale Qualified Code(s): I26.99 - Other pulmonary embolism without acute cor pulmonale (2) Pneumonia Priority: Secondary Status: Ruled-out Assessment and Plan: Pt was recently admitted to the hospital in March 2018 and diagnosed with Pseudmonas pneumonia which was attributed to his history of being on CPAP at night and history of Enbrel for psoriatic arthritis. Previously on Doxycycline, augmentin, and prednisone. Chest x-ray shows increased right infrahilar opacity Was on empiric vancomycin and Zosyn day 4 per ID which dc'd today Sputum culture revealed multiple epithelial cells and not cultured. ID following and dc'd vanc/zosyn as no evidence of obvious bacterial infection at this time. Qualifiers: Pneumonia type: due to Pseudomonas Laterality: right Lung location: middle lobe of lung Qualified Code(s): J15.1 - Pneumonia due to Pseudomonas (3) Chronic respiratory failure Priority: Secondary Status: Chronic Assessment and Plan: Patient wears 3 L supplemental oxygen at night along with CPAP. Continue monitoring Qualifiers: Respiratory failure complication: hypoxia Qualified Code(s): J96.11 - Chronic respiratory failure with hypoxia (4) HTN (hypertension) Priority: Secondary Status: Chronic Assessment and Plan: Blood pressure stable Continue hydrochlorothiazide. Qualifiers: Hypertension type: essential hypertension Qualified Code(s): I10 - Essential (primary) hypertension (5) Psoriatic arthritis Priority: Secondary Status: Chronic Assessment and Plan: Continue to hold home Embrel Outpatient follow-up (6) Anemia Priority: Secondary Status: Acute Assessment and Plan: Hemoglobin dropped from 13.7-->11.6 from 05/02-05/04 Stable hgb at 11.2 since No signs of active bleeding Continue monitoring Qualifiers: Anemia type: unspecified type Qualified Code(s): D64.9 - Anemia, unspecified Hospital course: Mr. Ocampo is a 63 year old male who presented with productive cough and worsening SOB for 2 days and had a fever with a Tmax of 101.6. He was recently admitted to the hospital in March and diagnosed with Pseudmonas pneumonia and dc home with doxycycline and augmentin and told to complete a prednisone taper. Since his last admission, he has been off of his Enbrel. Additionally, he had been experiencing left calf pain for few days prior to arrival and L shoulder pain day of admission. In ED he was given 1L NS bolus, started on vanc and zosyn. Troponins were negative. CXR was non-acute. CTA showed acute PE in R upper lobe, but no saddle embolus, evidence of right heart strain, or pulmonary infarct; ground glass opacities present consistent of recent h/o pneumonia. Started on heparin drip. ECHO EF 55-60%. Transitioned to xarelto for home anticoagulation. Pneumonia was excluded by ID after 4 days vanc and zosyn without evidence of acute bacterial infection. He experienced substernal chest pain with radiation to neck and diaphoresis 2x on 05/04. Troponin negative x4. ECG without acute ischemic changes. Cardiology evaluated and did not recommend stress test or heart cath in setting of acute PE. Can consider stress test as outpatient after 3 months uninterrupted anticoagulation. Is being discharged home with xarelto, 10 days prednisone, duonebs and sublingual nitro and will need repeat CTA chest in 3 months. Discharge discussed with: patient - Time Spent with Patient Total time spent providing and/or coordinating discharge services: Less than 30 minutes - Discharge Medications Prescriptions: Nitroglycerin 0.4 mg SL Q5MIN PRN #25 tab.subl PRN Reason: chest pain (no more than 3) Ipratropium/Albuterol Neb [Duoneb] 3 ml IH [id number] PRN #30 inhsol PRN Reason: trouble breathing PredniSONE [Deltasone] 20 mg PO DAILY 10 Days #10 tablet Rivaroxaban [Xarelto] 15 mg PO BID 21 Days #42 tablet Rivaroxaban [Xarelto] 20 mg PO DAILY 7 Days #7 tablet Home Medications: Albuterol Sulfate [Ventolin Hfa] 2 puff IH Q4-6H PRN 03/25/18 [History] Etanercept [Enbrel] 50 mg SQ PALMER 03/25/18 [History] Folic Acid 1 mg PO DAILY 03/25/18 [History] Methotrexate [Otrexup] 15 mg PO PALMER 03/25/18 [History] Montelukast [Singulair] 10 mg PO DAILY 03/25/18 [History] Olmesartan/Hydrochlorothiazide [Olmesartan-Hctz 40-25 mg Tab] 1 tab PO DAILY 03/25/18 [History] Tiotropium [place] [Spiriva Respimat] 1 puff IH DAILY 03/25/18 [History] Trazodone HCl 100 mg PO HS PRN 03/25/18 [History] raNITIdine HCl [Zantac] 150 mg PO BID 03/25/18 [History] Rivaroxaban [Xarelto] 20 mg PO QDPC #60 tablet 05/03/18 [Rx] Ipratropium/Albuterol Neb [Duoneb] 3 ml IH [id number] PRN #30 inhsol 05/05/18 [Rx] Nitroglycerin 0.4 mg SL Q5MIN PRN #25 tab.subl 05/05/18 [Rx] PredniSONE [Deltasone] 20 mg PO DAILY 10 Days #10 tablet 05/05/18 [Rx] Rivaroxaban [Xarelto] 15 mg PO BID 21 Days #42 tablet 05/05/18 [Rx] Rivaroxaban [Xarelto] 20 mg PO DAILY 7 Days #7 tablet 05/05/18 [Rx] Allergies/Adverse Reactions: Allergy/AdvReac Type Severity Reaction Status Date / Time azithromycin [From Zithromax] Allergy Hives Verified 03/25/18 09:13 levofloxacin [From Levaquin] Allergy Difficulty Verified 03/25/18 09:13 Breathing Date of admission: 05/03/18 18:26 Primary care physician: Jame Trivedi Consults: 05/02/18 12:49 Consult to Infectious Diseases [CONS] Stat Consulting Provider: Infectious Disease [place] Reason for Consult: multiple hospitalizations for PNA, now with fever and SOB Time Notified: 12:50 Call Completed: Yes 05/02/18 15:52 Consult to Pulmonology [CONS] Stat Consulting Provider: Pulm [facility] [place] Reason for Consult: Patient known to service, PNA, PE Call Completed: Yes 05/04/18 19:10 Consult to Cardiology [CONS] Routine Comment: Consulting Provider: Cardiology Diana Reason for Consult: chest pain Time Notified: 19:00 Call Completed: Yes Discharging clinician: Anthony Santiago Anticipated date of discharge: 05/05/18 - Constitutional Vitals: Temp Pulse Resp BP Pulse Ox 97.6 F 81 12 134/71 94 05/05/18 15:05 05/05/18 15:05 05/05/18 15:05 05/05/18 15:05 05/05/18 15:05 General appearance: Present: A&O X 3, pleasant, no acute distress Exam: alert - Head Head exam: Present: atraumatic, normal inspection - Eye Eye exam: Present: EOMI, normal appearance - Neck Neck exam general surgery: Present: normal inspection, trachea midline - Respiratory Respiratory exam: Present: CTAB. Absent: accessory muscle use, chest wall tenderness, decreased breath sounds, prolonged expiratory phase, rales, respiratory distress, rhonchi, stridor, wheezes, tachypnea - Cardiovascular Cardiovascular exam: Present: RRR, +S1, +S2. Absent: bradycardia, clicks, diastolic murmur, distant heart sounds, gallop, irregular rhythm, JVD, rubs, +S3, +S4, systolic murmur, tachycardia - GI/Abdominal GI/Abdominal exam: Present: soft. Absent: distended, firm, guarding, hepatomegaly, mass, rebound, rigid, splenomegaly, tenderness - Extremities Exam Extremities exam: Present: normal capillary refill, normal inspection, warm, radial pulses palpable and symmetrical. Absent: calf tenderness, cyanotic, joint swelling, pedal edema, tenderness - Neurological Exam Neurological exam: Present: alert, CN II-XII intact, oriented X3. Absent: facial droop, speech deficit - Psychiatric Psychiatric exam: Present: normal affect, normal mood - Skin Skin exam: Present: dry, intact, normal color, warm. Absent: abrasion, cyanosis, diaphoretic, erythema, excoriation, pallor, rash - Patient Status Disposition: Home, Self-Care Condition: Good Functional capacity at discharge: independent ambulation Overall status at discharge: patient is back to baseline - Discharge Instructions Instructions: Prednisone (By mouth), Nitroglycerin, Rapid Release (By mouth), Ipratropium/Albuterol (By breathing), Rivaroxaban (By mouth), Pulmonary Embolism (DC), Chronic Hypertension (DC), Anemia (GEN), Pneumonia (DC) Follow Up With: Genesis Esquivel MD [Partnered Physician] - Jame Trivedi DO [Primary Care Provider] - (please call and make a follow up appointment for 5-7 days) Forms: ED Satisfaction Letter - Diet and Activity Activity: increase activity as tolerated, wear oxygen at night Diet: regular diet <Miah Freitas - Last Filed: 05/05/18 19:28> Orders not resulted at time of discharge: Pending orders 05/05/18 00:30 EKG [ECG 12 lead ECG] [ECG] Routine 05/05/18 06:30 EKG [ECG 12 lead ECG] [ECG] Routine - Discharge Diagnosis (1) Pneumonia Status: Ruled-out Qualifiers: Pneumonia type: due to Pseudomonas Laterality: right Lung location: middle lobe of lung Qualified Code(s): J15.1 - Pneumonia due to Pseudomonas (2) Psoriatic arthritis Status: Chronic (3) HTN (hypertension) Status: Chronic Qualifiers: Hypertension type: essential hypertension Qualified Code(s): I10 - Essential (primary) hypertension (4) Chronic respiratory failure Status: Chronic Qualifiers: Respiratory failure complication: hypoxia Qualified Code(s): J96.11 - Chronic respiratory failure with hypoxia (5) Pulmonary emboli Status: Acute Qualifiers: Pulmonary embolism type: other Chronicity: acute Acute cor pulmonale presence: without acute cor pulmonale Qualified Code(s): I26.99 - Other pulmonary embolism without acute cor pulmonale (6) Anemia Status: Acute Qualifiers: Anemia type: unspecified type Qualified Code(s): D64.9 - Anemia, unspecified (7) Chest pain Status: Acute Qualifiers: Chest pain type: precordial pain Qualified Code(s): R07.2 - Precordial pain Hospital course: Mr. Ocampo is a 63 year old male - Time Spent with Patient Total time spent providing and/or coordinating discharge services: Date of admission: 05/03/18 18:26 Primary care physician: Jame Trivedi Consults: 05/02/18 12:49 Consult to Infectious Diseases [CONS] Stat Consulting Provider: Infectious Disease Diana Reason for Consult: multiple hospitalizations for PNA, now with fever and SOB Time Notified: 12:50 Call Completed: Yes 05/02/18 15:52 Consult to Pulmonology [CONS] Stat Consulting Provider: Pulm Crit [facility] Sleep [place] Reason for Consult: Patient known to service, PNA, PE Call Completed: Yes 05/04/18 19:10 Consult to Cardiology [CONS] Routine Comment: Consulting Provider: Cardiology [place] Reason for Consult: chest pain Time Notified: 19:00 Call Completed: Yes - Constitutional Vitals: Temp Pulse Resp BP Pulse Ox 97.6 F 81 17 134/71 97 05/05/18 15:05 05/05/18 15:05 05/05/18 16:18 05/05/18 15:05 05/05/18 16:18 - Attending Attestation I examined this patient and my medical decision-making was reviewed with the Resident Physician on 05/04/18. I agree with the documented findings, disposition and treatment plan as described except to the extent set forth below. 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 He has been on anticoagulation. He developed anginal chest pain and will have further work up in the future. He is now afebrile and ready for discharge home Exam alert Comfortable Mucus membranes dry Not tachy No wheeze Plan D/C home today
--- NOTE | 2018-05-09 19:00 | Electrocardiograph Report ---
[place] [address] Test Date: 2018-05-04 Pat Name: Aj Ocampo Department: 111 Room: [facility] Gender: M Public Health Analyst: RAW : 1955 Requested By: Miah Freitas Order Number: [id number] Reading MD: Chaparro Woodward Measurements Intervals [place] Rate: 89 P: 32 VA: 122 QRS: 47 QRSD: 98 T: 13 QT: 348 QTc: 395 Interpretive Statements SINUS RHYTHM NONSPECIFIC ST-T CHANGES Electronically Signed On 05-09-2018 18:58:34 EDT by Chaparro Woodward
--- NOTE | 2018-05-09 19:12 | Electrocardiograph Report ---
[place] [address] Test Date: 2018-05-05 Pat Name: Aj Ocampo Department: 111 Room: 2N4 Gender: M Back Order Clerk: MARIANELA : 1955 Requested By: Miah Freitas Order Number: [id number] Reading MD: Chaparro Woodward Measurements Intervals [place] Rate: 67 P: 51 PA: 143 QRS: 47 QRSD: 103 T: 19 QT: 399 QTc: 414 Interpretive Statements SINUS RHYTHM MODERATE T-WAVE ABNORMALITY, CONSIDER ANTEROLATERAL ISCHEMIA Electronically Signed On 05-09-2018 19:11:39 EDT by Chaparro Woodward
== END 2018-05-05 18:54 | disposition home or self-care (01) | DRG 175 ==
LOC: EMEROOARM 10:41 → 2NENU 10:41 → SUATTDRO 19:34 → 2NENU 20:01
PROVIDERS: ADMIT Internal Medicine Nephrology; ATTEND Internal Medicine

== ENCOUNTER 2019-05-20 10:32 | Observation (INO) ==
[2019-05-20] MEDS ORDERED: Bupivacaine/EPI 1:200k 0.25%PF 30 ML VIAL ONE (10:42)
[2019-05-20] MEDS ORDERED: Acetaminophen IV 1,000 MG/100 ML INFUS..BTL IVPB ONE (10:58)
[2019-05-20] MEDS ORDERED: *HR* HYDROcodone/Acet 5/325 mg TABLET PO PRN (11:04)
[2019-05-20] MEDS ORDERED: Lidocaine -MPF 4% 5 ML AMPUL ONE (11:08)
[2019-05-20] MEDS ORDERED: *HR* Midazolam HCl 2 MG/2 ML VIAL ONE (11:12)
[2019-05-20] MEDS ORDERED: traMADol 50 MG TABLET PO ONE (11:13)
[2019-05-20] MEDS ORDERED: Gabapentin 300 MG CAPSULE PO ONE (11:13)
[2019-05-20] MEDS ORDERED: *HR* FentaNYL (PF) 100 MCG/2 ML VIAL ONE ×2 (11:13→13:23)
[2019-05-20] MEDS ORDERED: *HR* Propofol 200 MG/20 ML VIAL IVP ONE (11:14)
[2019-05-20] MEDS ORDERED: *HR* Rocuronium Bromide 50 MG/5 ML VIAL ONE (11:15)
[2019-05-20] MEDS ORDERED: Dexamethasone 4 MG/ML VIAL ONE (11:15)
[2019-05-20] MEDS ORDERED: *HR* Succinylcholine 200 MG/10 ML VIAL IVP ONE (11:15)
[2019-05-20] MEDS ORDERED: Ondansetron 4 MG/2 ML VIAL ONE (11:15)
[2019-05-20] MEDS ORDERED: Lidocaine -MPF 2% 2 ML VIAL ONE (11:15)
[2019-05-20] MEDS ORDERED: CeFAZolin Syr 2,000MG/20 ML 2,000 MG/20 ML SYRINGE IVPB ONE (11:16)
[2019-05-20] MEDS ORDERED: Albuterol 2.5 MG/3 ML NEBULIZER IH PRN ×2 (11:16→14:53)
[2019-05-20] MEDS ORDERED: Ringers Solution, Lactated 1,000 ML IVC SCH ×2 (11:30→17:34)
[2019-05-20] MEDS ORDERED: *HR* PHENYLEPHRINE 1,000 MCG/10 ML SYRINGE IVP ONE (12:51)
[2019-05-20] MEDS ORDERED: *HR* OxyCODONE/APAP 5/325 TABLET PO PRN (13:34)
[2019-05-20] MEDS ORDERED: Acetaminophen 325 MG TABLET PO PRN ×2 (13:34→17:34)
[2019-05-20] MEDS: Morphine Sulfate 2 MG/ML SYRINGE IVP PRN ×2 (13:59→14:17)
[2019-05-20] MEDS: *HR* HYDROmorphone (PF) 1 MG/ML SYRINGE IVP PRN ×2 (14:40→14:47)
[2019-05-20] MEDS ORDERED: Albuterol 2.5 MG/3 ML NEBULIZER ONE (14:45)
[2019-05-20] MEDS ORDERED: *HR* HYDROmorphone (PF) 1 MG/ML SYRINGE IVP PRN (17:34)
[2019-05-20] MEDS ORDERED: NON-FORMULARY MEDICATION 1 EACH EACH (Glycopyrrolate/Formoterol Fum [Bevespi Aerosphere In IH SCH (21:00)
[2019-05-20] MEDS: Albuterol 2.5 MG/3 ML NEBULIZER IH PRN (21:54)
[2019-05-20] MEDS: *HR* OxyCODONE Immed Rel 5 MG TABLET PO PRN (22:37)
[2019-05-21] MEDS: *HR* OxyCODONE Immed Rel 5 MG TABLET PO PRN ×2 (05:32→11:59)
[2019-05-21] MEDS ORDERED: Losartan/HCTZ 50-12.5 TABLET PO SCH (09:00)
[2019-05-21] MEDS ORDERED: Finasteride 5 MG TABLET PO SCH (09:00)
[2019-05-21] MEDS ORDERED: Azithromycin 250 MG TABLET PO SCH (09:00)
[2019-05-21] MEDS: Albuterol 2.5 MG/3 ML NEBULIZER IH PRN (10:12)
[2019-05-21 11:58] VITALS: BP 131/62
== END 2019-05-21 14:24 | disposition home or self-care (01) ==
LOC: 3ANU 10:32 → SAMDAY 10:32
PROVIDERS: ADMIT Surgery; ATTEND Surgery

== ENCOUNTER 2019-05-21 22:26 | Inpatient (IN) ==
[2019-05-21] MEDS ORDERED: Isovue-370 500 ML BOTTLE IVP ONE (22:49)
[2019-05-21] MEDS ORDERED: Ipratropium/Albuterol Neb 3 ML IH ONE (22:51)
[2019-05-21] MEDS ORDERED: 0.9 % Sodium Chloride 1,000 ML IVC ONE (22:51)
[2019-05-21 23:03] LABS: Basophils % 0.1 %; Hematocrit 35.1 % (37.5-50.1); Immature Granulocytes % 0.7 % (0-4); Lymphocytes # 0.8 K/mcL (0.6-4.6); Lymphocytes % 7.1 %; Mean Corpuscular HGB Conc 34.2 g/dL (31.6-35.5); Mean Corpuscular Hemoglobin 28.6 pg (28.0-33.3); Mean Corpuscular Volume 83.8 fL (83.0-100.0); Mean Platelet Volume 9.2 fL (9.4-12.4); Monocytes # 0.7 K/mcL (0.0-1.3); Monocytes % 5.6 %; Neutrophils # 10.1 K/mcL (1.6-8.9); Platelet Count 246 K/mcL (140-400); Red Blood Count 4.19 M/mcL (4.19-5.50); Red Cell Distribution Width 14.5 % (11.5-14.5); Segmented Neutrophils % 86.5 %; White Blood Count 11.7 K/mcL (4.3-11.1)
[2019-05-21 23:28] LABS: BUN/Creatinine Ratio 18 (6-26); Blood Urea Nitrogen 18 mg/dL (8-23); Calcium 9.6 mg/dL (8.6-10.3); Carbon Dioxide 25 mEq/L (23-29); Chloride 99 mEq/L (98-107); Glucose 134 mg/dL (70-105); Osmolality,Calculated 278 (280-300); Potassium 4.1 mEq/L (3.5-5.1); Sodium 132 mEq/L (136-145); eGFR For African Americans > 60 (> 60); eGFR For Non-African Americans > 60 (> 60)
[2019-05-21 23:29] LABS: Troponin I < 0.03 ng/mL (< 0.04)
[2019-05-22] MEDS ORDERED: Piperacillin/Tazobactam 3.375 GM in 0.9 % Sodium Chloride Mini Bag 100 ML IVPB ONE (00:43)
[2019-05-22] MEDS ORDERED: Aminoglycoside Consult 1 EACH MC ONE (01:03)
[2019-05-22] MEDS ORDERED: Morphine Sulfate 2 MG/ML SYRINGE IVP ONE (03:16)
[2019-05-22] MEDS ORDERED: Ondansetron ODT 4 MG TAB.RAPDIS SL PRN (03:45)
[2019-05-22] MEDS ORDERED: Naloxone 0.4 MG/ML INJ IVP PRN ×2 (03:45→04:01)
[2019-05-22] MEDS ORDERED: Acetaminophen 325 MG TABLET PO PRN ×2 (04:01→07:57)
[2019-05-22 04:09] LABS: Hematocrit 34.6 % (37.5-50.1); Hemoglobin 11.7 g/dL (12.9-16.9); Immature Granulocytes % 0.7 % (0-4); Lymphocytes % 10.6 %; Mean Corpuscular HGB Conc 33.8 g/dL (31.6-35.5); Mean Corpuscular Hemoglobin 28.4 pg (28.0-33.3); Mean Platelet Volume 9.4 fL (9.4-12.4); Monocytes # 0.5 K/mcL (0.0-1.3); Monocytes % 5.7 %; Neutrophils # 7.6 K/mcL (1.6-8.9); Platelet Count 242 K/mcL (140-400); Red Blood Count 4.12 M/mcL (4.19-5.50); Red Cell Distribution Width 14.6 % (11.5-14.5); White Blood Count 9.2 K/mcL (4.3-11.1)
[2019-05-22 04:16] LABS: INR 0.9; Prothrombin Time 10.5 Seconds (9.4-12.1)
[2019-05-22] MEDS: Ipratropium/Albuterol Neb 3 ML IH SCH ×4 (04:22→22:38)
[2019-05-22 04:32] LABS: Alanine Aminotransferase 16 Units/L (7-52); Albumin 4.1 g/dL (3.5-5.7); Albumin/Globulin Ratio 1.6 (1.1-2.2); Alkaline Phosphatase 58 Units/L (34-104); Aspartate Amino Transferase 22 Units/L (13-39); BUN/Creatinine Ratio 17 (6-26); Bilirubin,Total 0.3 mg/dL (0.3-1.0); Blood Urea Nitrogen 16 mg/dL (8-23); Calcium 9.4 mg/dL (8.6-10.3); Carbon Dioxide 24 mEq/L (23-29); Chloride 105 mEq/L (98-107); Chol/HDL Ratio 3.4 (0-4.9); Cholesterol 173 mg/dL (< 200); Globulin 2.5 g/dL (2.4-3.5); Glucose 158 mg/dL (70-105); HDL Cholesterol 51 mg/dL (40-59); LDL Cholesterol,Calculated 101 mg/dL (0-99); Osmolality,Calculated 290 (280-300); Potassium 4.3 mEq/L (3.5-5.1); Sodium 138 mEq/L (136-145); Total Protein 6.6 g/dL (6.4-8.9); Triglycerides 103 mg/dL (< 150); Troponin I < 0.03 ng/mL (< 0.04); eGFR For African Americans > 60 (> 60); eGFR For Non-African Americans > 60 (> 60)
[2019-05-22 06:00] LABS: Immature Reticulocyte % 14.8 % (11.0-38.0); Retculocyte # 0.05 M/mcL (0.05-0.10); Reticulocyte % 1.2 % (1.6-2.8)
[2019-05-22 06:30] LABS: Thyroid Stimulating Hormone 0.715 mcIU/mL (0.340-5.600)
[2019-05-22 06:40] LABS: Folate 17.8 ng/mL (3.0-16.0)
[2019-05-22] MEDS: Losartan/HCTZ 50-12.5 TABLET PO SCH (07:57)
[2019-05-22] MEDS: Finasteride 5 MG TABLET PO SCH (07:57)
[2019-05-22] MEDS ORDERED: Piperacillin/Tazobactam 3.375 GM in 0.9 % Sodium Chloride Mini Bag 100 ML IVP SCH (08:00)
[2019-05-22 08:42] LABS: Estimated Average Glucose 126 mg/dl
[2019-05-22 14:05] LABS: Bilirubin,Urine Negative (Negative); Blood,Urine Negative (Negative); Clarity,Urine Clear (Clear); Color,Urine Yellow (Yellow); Glucose,Urine (UA) Normal (Normal); Ketones,Urine Negative (Negative); Leukocyte Esterase,Urine Negative (Negative); Nitrite,Urine Negative (Negative); Protein,Urine Negative (Neg-Trace); Specific Gravity,Urine 1.018 (1.010-1.025); Urobilinogen,Urine Normal (Normal)
[2019-05-22] MEDS: WATER FOR INJ IVP SCH ×3 (15:23→23:09)
[2019-05-22] MEDS: MEROPENEM IVP SCH ×3 (15:23→23:09)
[2019-05-22] MEDS ORDERED: Piperacillin/Tazobactam 3.375 GM in 0.9 % Sodium Chloride Mini Bag 100 ML IVPB SCH (16:00)
[2019-05-23] MEDS: Ipratropium/Albuterol Neb 3 ML IH SCH ×2 (05:09→11:11)
[2019-05-23 05:22] LABS: Adenovirus Not Detected (Not Detect); Bordetella Pertussis Not Detected (Not Detect); Chlamydophila pneumoniae Not Detected (Not Detect); Coronavirus 229E Not Detected (Not Detect); Coronavirus HKU1 Not Detected (Not Detect); Coronavirus NL63 Not Detected (Not Detect); Coronavirus OC43 Not Detected (Not Detect); Human Metapneumovirus Not Detected (Not Detect); Human Rhinovirus/Enterovirus Not Detected (Not Detect); Influenza A Subtype 2009 H1 Not Detected (Not Detect); Influenza A Untypeable Not Detected (Not Detect); Influenza B Not Detected (Not Detect); Mycoplasma pneumoniae Not Detected (Not Detect); Parainfluenza Virus 1 Not Detected (Not Detect); Parainfluenza Virus 2 Not Detected (Not Detect); Parainfluenza Virus 3 Not Detected (Not Detect); Parainfluenza Virus 4 Not Detected (Not Detect); Respiratory Syncytial Virus Not Detected (Not Detect)
[2019-05-23] MEDS: Finasteride 5 MG TABLET PO SCH (07:52)
[2019-05-23] MEDS: Losartan/HCTZ 50-12.5 TABLET PO SCH (07:52)
[2019-05-23] MEDS: MEROPENEM IVP SCH ×3 (07:52→22:43)
[2019-05-23] MEDS: WATER FOR INJ IVP SCH ×3 (07:52→22:43)
[2019-05-23] MEDS: Magnesium Oxide 400 MG TABLET PO SCH (09:49)
[2019-05-23] MEDS: Multivit/Ca/Min/Fe/FA 1 TAB TABLET PO SCH (09:49)
[2019-05-23 09:51] LABS: BUN/Creatinine Ratio 15 (6-26); Blood Urea Nitrogen 16 mg/dL (8-23); Calcium 9.3 mg/dL (8.6-10.3); Carbon Dioxide 26 mEq/L (23-29); Chloride 100 mEq/L (98-107); Glucose 98 mg/dL (70-105); Magnesium 1.8 mg/dL (1.6-2.6); Osmolality,Calculated 281 (280-300); Phosphorous 4.1 mg/dL (2.7-4.5); Potassium 3.3 mEq/L (3.5-5.1); Sodium 135 mEq/L (136-145); eGFR For African Americans > 60 (> 60); eGFR For Non-African Americans > 60 (> 60)
[2019-05-23] MEDS: GLYCOPYRROLATE IH SCH ×2 (11:52→22:44)
[2019-05-23] MEDS: FORMOTEROL IH SCH ×2 (11:52→22:44)
[2019-05-23] MEDS: FLUTICASONE 110 MCG IH SCH ×2 (11:53→22:44)
[2019-05-23] MEDS: *HR* Heparin 5,000 UNIT/ML VIAL SQ SCH ×2 (13:19→22:44)
[2019-05-23] MEDS: Albuterol 2.5 MG/3 ML NEBULIZER IH PRN ×2 (16:00→23:05)
[2019-05-24] MEDS: *HR* Heparin 5,000 UNIT/ML VIAL SQ SCH ×3 (05:52→22:02)
[2019-05-24 07:57] LABS: Basophils % 0.7 %; Eosinophils # 0.4 K/mcL (0.0-0.6); Eosinophils % 6.3 %; Hematocrit 36.7 % (37.5-50.1); Immature Granulocytes % 0.5 % (0-4); Lymphocytes # 2.2 K/mcL (0.6-4.6); Lymphocytes % 36.5 %; Mean Corpuscular HGB Conc 32.7 g/dL (31.6-35.5); Mean Corpuscular Hemoglobin 28.2 pg (28.0-33.3); Mean Corpuscular Volume 86.2 fL (83.0-100.0); Mean Platelet Volume 9.2 fL (9.4-12.4); Monocytes # 0.8 K/mcL (0.0-1.3); Monocytes % 12.9 %; Neutrophils # 2.5 K/mcL (1.6-8.9); Platelet Count 245 K/mcL (140-400); Red Blood Count 4.26 M/mcL (4.19-5.50); Red Cell Distribution Width 14.4 % (11.5-14.5); Segmented Neutrophils % 43.1 %; White Blood Count 5.9 K/mcL (4.3-11.1)
[2019-05-24] MEDS: Multivit/Ca/Min/Fe/FA 1 TAB TABLET PO SCH (08:05)
[2019-05-24] MEDS: MEROPENEM IVP SCH ×3 (08:05→23:53)
[2019-05-24] MEDS: WATER FOR INJ IVP SCH ×3 (08:05→23:53)
[2019-05-24] MEDS: Finasteride 5 MG TABLET PO SCH (08:05)
[2019-05-24] MEDS: Losartan/HCTZ 50-12.5 TABLET PO SCH (08:05)
[2019-05-24] MEDS: Magnesium Oxide 400 MG TABLET PO SCH (08:05)
[2019-05-24 08:24] LABS: BUN/Creatinine Ratio 19 (6-26); Blood Urea Nitrogen 18 mg/dL (8-23); Calcium 9.4 mg/dL (8.6-10.3); Carbon Dioxide 28 mEq/L (23-29); Chloride 98 mEq/L (98-107); Glucose 92 mg/dL (70-105); Osmolality,Calculated 282 (280-300); Phosphorous 4.5 mg/dL (2.7-4.5); Potassium 3.8 mEq/L (3.5-5.1); Sodium 135 mEq/L (136-145); eGFR For African Americans > 60 (> 60); eGFR For Non-African Americans > 60 (> 60)
[2019-05-24] MEDS: GLYCOPYRROLATE IH SCH (10:31)
[2019-05-24] MEDS: FLUTICASONE 110 MCG IH SCH (10:31)
[2019-05-24] MEDS: FORMOTEROL IH SCH (10:31)
[2019-05-24] MEDS: Albuterol 2.5 MG/3 ML NEBULIZER IH PRN ×2 (11:05→22:26)
[2019-05-25] MEDS: *HR* Heparin 5,000 UNIT/ML VIAL SQ SCH ×3 (05:23→21:53)
[2019-05-25 06:16] LABS: Basophils % 0.7 %; Eosinophils # 0.3 K/mcL (0.0-0.6); Eosinophils % 5.7 %; Hematocrit 39.6 % (37.5-50.1); Hemoglobin 13.3 g/dL (12.9-16.9); Immature Granulocytes % 0.7 % (0-4); Lymphocytes # 2.2 K/mcL (0.6-4.6); Lymphocytes % 37.3 %; Mean Corpuscular HGB Conc 33.6 g/dL (31.6-35.5); Mean Corpuscular Hemoglobin 28.1 pg (28.0-33.3); Mean Corpuscular Volume 83.7 fL (83.0-100.0); Mean Platelet Volume 9.4 fL (9.4-12.4); Monocytes # 0.8 K/mcL (0.0-1.3); Monocytes % 13.5 %; Neutrophils # 2.4 K/mcL (1.6-8.9); Platelet Count 265 K/mcL (140-400); Red Blood Count 4.73 M/mcL (4.19-5.50); Red Cell Distribution Width 14.2 % (11.5-14.5); Segmented Neutrophils % 42.1 %; White Blood Count 5.8 K/mcL (4.3-11.1)
[2019-05-25 06:36] LABS: BUN/Creatinine Ratio 19 (6-26); Blood Urea Nitrogen 20 mg/dL (8-23); Calcium 9.7 mg/dL (8.6-10.3); Carbon Dioxide 28 mEq/L (23-29); Chloride 99 mEq/L (98-107); Glucose 100 mg/dL (70-105); Magnesium 2.1 mg/dL (1.6-2.6); Osmolality,Calculated 283 (280-300); Phosphorous 3.7 mg/dL (2.7-4.5); Sodium 135 mEq/L (136-145); eGFR For African Americans > 60 (> 60); eGFR For Non-African Americans > 60 (> 60)
[2019-05-25] MEDS: WATER FOR INJ IVP SCH (07:58)
[2019-05-25] MEDS: FORMOTEROL IH SCH ×2 (07:58→13:10)
[2019-05-25] MEDS: MEROPENEM IVP SCH (07:58)
[2019-05-25] MEDS: GLYCOPYRROLATE IH SCH ×2 (07:58→13:10)
[2019-05-25] MEDS: FLUTICASONE 110 MCG IH SCH ×2 (07:58→13:10)
[2019-05-25] MEDS ORDERED: Lidocaine -MPF 4% 5 ML AMPUL ONE (10:32)
[2019-05-25] MEDS ORDERED: *HR* Propofol 200 MG/20 ML VIAL IVP ONE (10:32)
[2019-05-25] MEDS ORDERED: Lidocaine -MPF 2% 2 ML VIAL ONE ×2 (10:32→10:34)
[2019-05-25] MEDS ORDERED: *HR* Succinylcholine 200 MG/10 ML VIAL IVP ONE (10:32)
[2019-05-25] MEDS ORDERED: Ondansetron 4 MG/2 ML VIAL ONE (10:32)
[2019-05-25] MEDS ORDERED: *HR* FentaNYL (PF) 100 MCG/2 ML VIAL ONE (10:33)
[2019-05-25 12:28] LABS: Source of Body Fluid LEFT LOWER LOBE LUNG
[2019-05-25] MEDS: Losartan/HCTZ 50-12.5 TABLET PO SCH (13:04)
[2019-05-25] MEDS: Multivit/Ca/Min/Fe/FA 1 TAB TABLET PO SCH (13:04)
[2019-05-25] MEDS: Magnesium Oxide 400 MG TABLET PO SCH (13:04)
[2019-05-25] MEDS: Finasteride 5 MG TABLET PO SCH (13:05)
[2019-05-25] MEDS: Meropenem 1,000 MG in 0.9 % Sodium Chloride Mini Bag 100 ML IVPB SCH ×2 (16:02→23:37)
[2019-05-25 18:22] LABS: Appearance of Body Fluid Cloudy (Clear); Volume of Body Fluid 15 mL
[2019-05-25 18:29] LABS: Appearance of Body Fluid Hazy (Clear); Volume of Body Fluid 20 mL
[2019-05-25] MEDS: Albuterol 2.5 MG/3 ML NEBULIZER IH PRN (20:06)
[2019-05-26] MEDS ORDERED: Azithromycin desensitization 1 mg/mL IVP ONE ×4 (07:00→10:15)
[2019-05-26] MEDS ORDERED: methylPREDNISolone 125 MG/2 ML VIAL IVP PRN (09:00)
[2019-05-26] MEDS ORDERED: EPINEPHrine 1 MG/ML VIAL IM PRN (09:00)
[2019-05-26] MEDS ORDERED: AZITHROMYCIN IVP ONE ×4 (09:00→09:45)
[2019-05-26] MEDS ORDERED: Albuterol 2.5 MG/3 ML NEBULIZER IH PRN (09:00)
[2019-05-26] MEDS ORDERED: Loratadine 10 MG TABLET PO PRN (09:00)
[2019-05-26] MEDS ORDERED: AZITHROMYCIN IV ONE ×8 (09:00)
[2019-05-26] MEDS ORDERED: Azithromycin 250 MG in D5% in Water 250 ML IVPB ONE (10:30)
[2019-05-26] MEDS ORDERED: Azithromycin 500 MG in D5% in Water 250 ML IVPB ONE (11:30)
[2019-05-26] MEDS ORDERED: Meropenem 1,000 MG in 0.9 % Sodium Chloride Mini Bag 100 ML IVPB SCH (16:00)
[2019-05-26] MEDS: *HR* Heparin 5,000 UNIT/ML VIAL SQ SCH ×3 (16:54→20:50)
[2019-05-26] MEDS: Multivit/Ca/Min/Fe/FA 1 TAB TABLET PO SCH (17:00)
[2019-05-26] MEDS: Finasteride 5 MG TABLET PO SCH (17:02)
[2019-05-26] MEDS: Losartan/HCTZ 50-12.5 TABLET PO SCH (17:04)
[2019-05-26] MEDS: Magnesium Oxide 400 MG TABLET PO SCH (17:04)
[2019-05-26] MEDS: Albuterol 2.5 MG/3 ML NEBULIZER IH PRN (19:58)
[2019-05-26] MEDS: Meropenem 1,000 MG in 0.9 % Sodium Chloride Mini Bag 100 ML IVPB SCH (20:50)
[2019-05-27 04:07] VITALS: BP 118/56
[2019-05-27] MEDS: Meropenem 1,000 MG in 0.9 % Sodium Chloride Mini Bag 100 ML IVPB SCH ×2 (05:21→09:32)
[2019-05-27] MEDS: *HR* Heparin 5,000 UNIT/ML VIAL SQ SCH (05:28)
[2019-05-27] MEDS: FLUTICASONE 110 MCG IH SCH ×2 (09:33→09:34)
[2019-05-27] MEDS: GLYCOPYRROLATE IH SCH ×2 (09:34→09:35)
[2019-05-27] MEDS: FORMOTEROL IH SCH ×2 (09:34→09:35)
[2019-05-27] MEDS: Multivit/Ca/Min/Fe/FA 1 TAB TABLET PO SCH (09:40)
[2019-05-27] MEDS: Finasteride 5 MG TABLET PO SCH (09:41)
[2019-05-27] MEDS: Magnesium Oxide 400 MG TABLET PO SCH (09:41)
[2019-05-27] MEDS: Losartan/HCTZ 50-12.5 TABLET PO SCH (09:41)
[2019-05-28 03:39] LABS: Influenza A PCR Body Fluid NOT DETECTED; Influenza B PCR Body Fluid NOT DETECTED; RVP Body Fluid Source BAL LLL
[2019-05-28 03:41] LABS: Influenza A PCR Body Fluid NOT DETECTED; Influenza B PCR Body Fluid NOT DETECTED; RVP Body Fluid Source BAL RLL
[2019-05-28 09:08] LABS: RSV PCR Body Fluid NOT DETECTED
== END 2019-05-27 11:18 | disposition home or self-care (01) | DRG 166 ==
LOC: EMEROOARM 22:26 → 2ANU 22:26 → SUATTDRO 05-22 01:02 → 2ANU 05-22 02:04 → SUATTDRO 05-25 16:10
PROVIDERS: ADMIT Family Medicine; ATTEND Pharmacist

== ENCOUNTER 2020-03-02 06:40 | Inpatient (IN) ==
[~2020-03-02 06:40] MED LIST: Famotidine 20 MG/2 ML VIAL IVP ONE
[2020-03-02] MEDS ORDERED: *HR* FentaNYL (PF) 100 MCG/2 ML VIAL ONE (07:02)
[2020-03-02] MEDS ORDERED: *HR* Propofol 200 MG/20 ML VIAL IVP ONE (07:02)
[2020-03-02] MEDS ORDERED: *HR* Rocuronium Bromide 50 MG/5 ML VIAL ONE (07:03)
[2020-03-02] MEDS ORDERED: Dexamethasone 4 MG/ML VIAL ONE (07:03)
[2020-03-02] MEDS ORDERED: Lidocaine HCL 4 ML Topical Solution (Laryng-O-Jet Kit Sterile Pak) TP ONE (07:03)
[2020-03-02] MEDS ORDERED: Lidocaine -MPF 2% 2 ML VIAL ONE (07:03)
[2020-03-02] MEDS ORDERED: Ondansetron 4 MG/2 ML VIAL ONE (07:03)
[2020-03-02] MEDS ORDERED: CeFAZolin Syr 2,000MG/20 ML 2,000 MG/20 ML SYRINGE IVPB ONE (07:21)
[2020-03-02] MEDS ORDERED: *HR* Promethazine 25 MG/ML VIAL IVP PRN (07:22)
[2020-03-02] MEDS ORDERED: Bupivacaine/EPI 1:200k 0.25%PF 30 ML VIAL ONE ×2 (07:22→08:01)
[2020-03-02] MEDS ORDERED: *HR* Labetalol 20 MG/4 ML SYRINGE IVP PRN (07:22)
[2020-03-02] MEDS ORDERED: Ondansetron 4 MG/2 ML VIAL IVP PRN ×2 (07:22→14:56)
[2020-03-02] MEDS ORDERED: Ringers Solution, Lactated 1,000 ML IVC SCH (07:30)
[2020-03-02] MEDS ORDERED: *HR* Midazolam HCl 2 MG/2 ML VIAL ONE (07:45)
[2020-03-02] MEDS ORDERED: *HR* HYDROMORPHONE 2 MG/ML VIAL ONE (08:32)
[2020-03-02] MEDS ORDERED: Ketorolac 30 MG/ML VIAL ONE (08:53)
[2020-03-02] MEDS ORDERED: Acetaminophen 325 MG TABLET PO PRN (09:23)
[2020-03-02] MEDS ORDERED: *HR* HYDROmorphone (PF) 1 MG/ML SYRINGE IVP PRN (09:23)
[2020-03-02] MEDS ORDERED: *HR* OxyCODONE/APAP 10/325 TABLET PO PRN (09:23)
[2020-03-02] MEDS: *HR* HYDROmorphone (PF) 1 MG/ML SYRINGE IVP PRN ×7 (09:36→22:42)
[2020-03-02] MEDS ORDERED: Ipratropium/Albuterol Neb 3 ML IH ONE (13:06)
[2020-03-02] MEDS: Ringers Solution, Lactated 1,000 ML IVC SCH (15:09)
[2020-03-02] MEDS: Ipratropium/Albuterol Neb 3 ML IH SCH (21:13)
[2020-03-02] MEDS: Acetaminophen 325 MG TABLET PO PRN (21:22)
[2020-03-02] MEDS: FORMOTEROL FUM IH SCH (21:24)
[2020-03-02] MEDS: GLYCOPYRROLATE IH SCH (21:24)
[2020-03-03] MEDS: *HR* HYDROmorphone (PF) 1 MG/ML SYRINGE IVP PRN ×6 (00:09→23:38)
[2020-03-03] MEDS: Ipratropium/Albuterol Neb 3 ML IH SCH ×4 (03:14→22:21)
[2020-03-03] MEDS: Ringers Solution, Lactated 1,000 ML IVC SCH (05:43)
[2020-03-03] MEDS: *HR* OxyCODONE/APAP 10/325 TABLET PO PRN (05:44)
[2020-03-03 06:10] LABS: Basophils % 0.1 %; Immature Granulocytes % 0.6 % (0-4); Lymphocytes # 0.9 K/mcL (0.6-4.6); Lymphocytes % 6.5 %; Mean Corpuscular HGB Conc 33.3 g/dL (31.6-35.5); Mean Corpuscular Hemoglobin 31.4 pg (28.0-33.3); Mean Corpuscular Volume 94.2 fL (83.0-100.0); Mean Platelet Volume 9.7 fL (9.4-12.4); Monocytes # 1.5 K/mcL (0.0-1.3); Monocytes % 10.5 %; Neutrophils # 11.4 K/mcL (1.6-8.9); Platelet Count 240 K/mcL (140-400); Red Blood Count 4.14 M/mcL (4.19-5.50); Red Cell Distribution Width 14.2 % (11.5-14.5); Segmented Neutrophils % 82.3 %; White Blood Count 13.9 K/mcL (4.3-11.1)
[2020-03-03 06:31] LABS: BUN/Creatinine Ratio 23 (6-26); Blood Urea Nitrogen 23 mg/dL (8-23); Calcium 9.6 mg/dL (8.6-10.3); Carbon Dioxide 25 mEq/L (23-29); Chloride 100 mEq/L (98-107); Glucose 120 mg/dL (70-105); Osmolality,Calculated 291 (280-300); Potassium 3.8 mEq/L (3.5-5.1); Sodium 138 mEq/L (136-145); eGFR For African Americans > 60 (> 60); eGFR For Non-African Americans > 60 (> 60)
[2020-03-03] MEDS: Finasteride 5 MG TABLET PO SCH (08:06)
[2020-03-03] MEDS ORDERED: Losartan/HCTZ 50-12.5 TABLET PO SCH (09:00)
[2020-03-03] MEDS ORDERED: Azithromycin 250 MG TABLET PO SCH (09:00)
[2020-03-03] MEDS: FORMOTEROL FUM IH SCH ×2 (11:12→21:22)
[2020-03-03] MEDS: IRBESARTAN PO SCH (11:12)
[2020-03-03] MEDS: GLYCOPYRROLATE IH SCH ×2 (11:12→21:22)
[2020-03-03] MEDS: HCTZ PO SCH (11:12)
[2020-03-03] MEDS: Doxycycline 100 MG CAPSULE PO SCH ×2 (13:07→21:22)
[2020-03-03] MEDS ORDERED: methylPREDNISolone 125 MG/2 ML VIAL IVP ONE (17:15)
[2020-03-03] MEDS ORDERED: Furosemide 40 MG/4 ML VIAL IVP ONE (21:25)
[2020-03-03] MEDS ORDERED: Furosemide 40 MG/4 ML VIAL ONE (21:32)
[2020-03-03] MEDS: hydrOXYzine pamoate 25 MG CAPSULE PO PRN (22:29)
[2020-03-04] MEDS: Acetaminophen 325 MG TABLET PO PRN (02:26)
[2020-03-04] MEDS: Ipratropium/Albuterol Neb 3 ML IH SCH ×4 (03:36→21:59)
[2020-03-04 06:54] LABS: Basophils % 0.1 %; Hematocrit 36.7 % (37.5-50.1); Hemoglobin 11.9 g/dL (12.9-16.9); Lymphocytes # 0.6 K/mcL (0.6-4.6); Lymphocytes % 6.5 %; Mean Corpuscular HGB Conc 32.4 g/dL (31.6-35.5); Mean Corpuscular Hemoglobin 30.9 pg (28.0-33.3); Mean Corpuscular Volume 95.3 fL (83.0-100.0); Mean Platelet Volume 9.4 fL (9.4-12.4); Monocytes # 0.6 K/mcL (0.0-1.3); Neutrophils # 8.1 K/mcL (1.6-8.9); Platelet Count 195 K/mcL (140-400); Red Blood Count 3.85 M/mcL (4.19-5.50); Red Cell Distribution Width 14.4 % (11.5-14.5); Segmented Neutrophils % 86.4 %; White Blood Count 9.4 K/mcL (4.3-11.1)
[2020-03-04 07:15] LABS: BUN/Creatinine Ratio 23 (6-26); Blood Urea Nitrogen 22 mg/dL (8-23); Calcium 9.7 mg/dL (8.6-10.3); Carbon Dioxide 27 mEq/L (23-29); Chloride 99 mEq/L (98-107); Glucose 147 mg/dL (70-105); Osmolality,Calculated 286 (280-300); Potassium 3.7 mEq/L (3.5-5.1); Sodium 135 mEq/L (136-145); eGFR For African Americans > 60 (> 60); eGFR For Non-African Americans > 60 (> 60)
[2020-03-04] MEDS: FORMOTEROL FUM IH SCH (08:20)
[2020-03-04] MEDS: HCTZ PO SCH (08:20)
[2020-03-04] MEDS: GLYCOPYRROLATE IH SCH (08:20)
[2020-03-04] MEDS: IRBESARTAN PO SCH (08:20)
[2020-03-04] MEDS: Doxycycline 100 MG CAPSULE PO SCH ×2 (08:22→19:34)
[2020-03-04] MEDS: *HR* HYDROmorphone (PF) 1 MG/ML SYRINGE IVP PRN ×3 (08:22→14:57)
[2020-03-04] MEDS: Finasteride 5 MG TABLET PO SCH (08:22)
[2020-03-04] MEDS ORDERED: polyethylene glycoL 3350 17 GM POWD.PACK PO PRN (15:06)
[2020-03-04] MEDS ORDERED: methylPREDNISolone 125 MG/2 ML VIAL IVP ONE (19:15)
[2020-03-04] MEDS: *HR* OxyCODONE/APAP 10/325 TABLET PO PRN (19:44)
[2020-03-04] MEDS: hydrOXYzine pamoate 25 MG CAPSULE PO PRN (21:04)
[2020-03-05] MEDS: Ipratropium/Albuterol Neb 3 ML IH SCH ×4 (03:45→22:18)
[2020-03-05] MEDS: Acetaminophen 325 MG TABLET PO PRN ×2 (06:16→20:10)
[2020-03-05 06:53] LABS: Basophils % 0.2 %; Hematocrit 39.8 % (37.5-50.1); Hemoglobin 13.3 g/dL (12.9-16.9); Immature Granulocytes % 1.3 % (0-4); Lymphocytes # 0.6 K/mcL (0.6-4.6); Mean Corpuscular HGB Conc 33.4 g/dL (31.6-35.5); Mean Corpuscular Hemoglobin 31.7 pg (28.0-33.3); Mean Corpuscular Volume 94.8 fL (83.0-100.0); Mean Platelet Volume 9.6 fL (9.4-12.4); Monocytes # 0.7 K/mcL (0.0-1.3); Monocytes % 7.5 %; Neutrophils # 8.4 K/mcL (1.6-8.9); Platelet Count 252 K/mcL (140-400); Red Cell Distribution Width 14.1 % (11.5-14.5); White Blood Count 9.9 K/mcL (4.3-11.1)
[2020-03-05 07:22] LABS: BUN/Creatinine Ratio 23 (6-26); Blood Urea Nitrogen 21 mg/dL (8-23); Calcium 10.5 mg/dL (8.6-10.3); Carbon Dioxide 27 mEq/L (23-29); Chloride 97 mEq/L (98-107); Glucose 132 mg/dL (70-105); Magnesium 2.1 mg/dL (1.6-2.6); Osmolality,Calculated 285 (280-300); Phosphorous 3.3 mg/dL (2.7-4.5); Sodium 135 mEq/L (136-145); eGFR For African Americans > 60 (> 60); eGFR For Non-African Americans > 60 (> 60)
[2020-03-05] MEDS: Doxycycline 100 MG CAPSULE PO SCH ×2 (07:59→20:10)
[2020-03-05] MEDS: Finasteride 5 MG TABLET PO SCH (07:59)
[2020-03-05] MEDS: HCTZ PO SCH (08:00)
[2020-03-05] MEDS: IRBESARTAN PO SCH (08:00)
[2020-03-05] MEDS: *HR* OxyCODONE/APAP 10/325 TABLET PO PRN (08:03)
[2020-03-05] MEDS: *HR* HYDROmorphone (PF) 1 MG/ML SYRINGE IVP PRN (10:43)
[2020-03-05] MEDS ORDERED: polyethylene glycoL 3350 17 GM POWD.PACK PO PRN (11:14)
[2020-03-05] MEDS ORDERED: *HR* HYDROmorphone (PF) 1 MG/ML SYRINGE IVP PRN (11:14)
[2020-03-05] MEDS ORDERED: Ondansetron 4 MG/2 ML VIAL IVP PRN (11:14)
[2020-03-05] MEDS: Azithromycin 250 MG TABLET PO SCH (12:30)
[2020-03-05] MEDS ORDERED: Mag Hydrox/Al Hydrox/Simeth 30 ML UDC PO PRN (16:13)
[2020-03-05] MEDS: GLYCOPYRROLATE IH SCH (20:12)
[2020-03-05] MEDS: FORMOTEROL FUM IH SCH (20:12)
[2020-03-05] MEDS: hydrOXYzine pamoate 25 MG CAPSULE PO PRN (21:40)
[2020-03-06] MEDS: GLYCOPYRROLATE IH SCH ×2 (03:17→09:12)
[2020-03-06] MEDS: FORMOTEROL FUM IH SCH ×2 (03:17→09:12)
[2020-03-06] MEDS: Ipratropium/Albuterol Neb 3 ML IH SCH ×4 (04:13→22:11)
[2020-03-06] MEDS: Finasteride 5 MG TABLET PO SCH (09:11)
[2020-03-06] MEDS: Doxycycline 100 MG CAPSULE PO SCH ×2 (09:12→19:42)
[2020-03-06] MEDS: *HR* OxyCODONE/APAP 10/325 TABLET PO PRN ×2 (09:18→16:34)
[2020-03-06] MEDS: IRBESARTAN PO SCH (10:45)
[2020-03-06] MEDS: HCTZ PO SCH (10:45)
[2020-03-06] MEDS: Acetaminophen 325 MG TABLET PO PRN (14:32)
[2020-03-06] MEDS: VALSARTAN 320 MG PO SCH (15:05)
[2020-03-06] MEDS: HYDROCHLOROTHIAZIDE 12.5 MG PO SCH (15:05)
[2020-03-06] MEDS ORDERED: methylPREDNISolone 125 MG/2 ML VIAL IVP ONE (17:31)
[2020-03-06] MEDS: hydrOXYzine pamoate 25 MG CAPSULE PO PRN (21:17)
[2020-03-07 01:38] LABS: Basophils % 0.4 %; Eosinophils % 0.1 %; Hematocrit 38.4 % (37.5-50.1); Hemoglobin 12.9 g/dL (12.9-16.9); Immature Granulocytes % 2.4 % (0-4); Lymphocytes # 0.5 K/mcL (0.6-4.6); Lymphocytes % 6.9 %; Mean Corpuscular HGB Conc 33.6 g/dL (31.6-35.5); Mean Corpuscular Hemoglobin 31.6 pg (28.0-33.3); Mean Corpuscular Volume 94.1 fL (83.0-100.0); Mean Platelet Volume 9.3 fL (9.4-12.4); Monocytes # 0.3 K/mcL (0.0-1.3); Monocytes % 3.7 %; Neutrophils # 6.4 K/mcL (1.6-8.9); Platelet Count 229 K/mcL (140-400); Red Blood Count 4.08 M/mcL (4.19-5.50); Red Cell Distribution Width 13.8 % (11.5-14.5); Segmented Neutrophils % 86.5 %; White Blood Count 7.4 K/mcL (4.3-11.1)
[2020-03-07] MEDS: Ipratropium/Albuterol Neb 3 ML IH SCH ×2 (03:54→09:44)
[2020-03-07] MEDS: FORMOTEROL FUM IH SCH ×2 (05:23→08:57)
[2020-03-07] MEDS: GLYCOPYRROLATE IH SCH ×2 (05:23→08:57)
[2020-03-07] MEDS: *HR* OxyCODONE/APAP 10/325 TABLET PO PRN (06:09)
[2020-03-07 07:05] VITALS: BP 129/71
[2020-03-07] MEDS: Doxycycline 100 MG CAPSULE PO SCH (08:49)
[2020-03-07] MEDS: HYDROCHLOROTHIAZIDE 12.5 MG PO SCH (08:51)
[2020-03-07] MEDS: VALSARTAN 320 MG PO SCH (08:51)
[2020-03-07] MEDS: Finasteride 5 MG TABLET PO SCH (08:52)
[2020-03-07] MEDS: Azithromycin 250 MG TABLET PO SCH (08:56)
[2020-03-07] MEDS: HCTZ PO SCH (08:57)
[2020-03-07] MEDS: IRBESARTAN PO SCH (08:57)
[2020-03-07] MEDS ORDERED: *HR* OxyCODONE Immed Rel 5 MG TABLET PO PRN (12:38)
== END 2020-03-07 14:37 | disposition home or self-care (01) | DRG 335 ==
LOC: ICNU 06:40 → SAMDAY 06:40 → 3ANU 14:44 → ICNU 03-03 20:33 → 3ANU 03-05 12:22
PROVIDERS: ADMIT Surgery; ATTEND Surgery